=== PATIENT | female | born 1980 | race Caucasian/White ===

== ENCOUNTER → 2023-11-13 | Outpatient (CLI) | payer OTHER, SELFPAY ==
[2023-11-13 17:00] LABS: Absolute Lymphocyte Count 1.47 X10^3/uL (0.83-4.51); Absolute Neutrophil Count 2.8 X10^3/uL (2.0-7.7); Basophil# 0.02 X10^3/uL; Basophil% 0.4 % (0-1); Eosinophil# 0.04 X10^3/uL; Eosinophils% 0.8 % (0-5); Hematocrit 39.6 % (37-47); Hemoglobin 13.2 g/dL (12.0-15.0); Lymphocyte # 1.47 X10^3/ul (0.83-4.51); Lymphocyte % 30.7 % (19-41); Mean Corp Hgb Conc 33.3 g/dL (32-36); Mean Corpuscular Hgb 32.5 pg (27.0-32.0); Mean Corpuscular Volume 97.5 fL (81-99); Mean Platelet Vol. 8.9 fl (6.2-12.0); Monocyte# 0.42 X10^3/uL; Monocyte% 8.8 % (0-10); NRBC Flagged by Analyzer 0 % (0-5); Neutrophil # 2.83 X10^3/uL (2.7-7.7); Neutrophil % 59.1 % (47-70); Platelet Count 258 K/mm3 (150-450); RBC Distribution Width CV 12.8 % (11.6-14.6); RBC Distribution Width SD 45.8 fl (35.1-43.9); Red Blood Count 4.06 M/mm3 (4.2-5.4); White Blood Count 4.8 K/mm3 (4.4-11.0)
[2023-11-13 17:16] LABS: AST(SGOT) 25 U/L (15-37); Alanine Aminotransfer ALT/SGPT 40 U/L (13-56); Albumin, Serum 3.6 g/dL (3.2-5.0); Alkaline Phosphatase 59 U/L (45-117); Anion Gap 7 (5-15); BUN 14 mg/dL (7-18); BUN/Creat Ratio 18.3 RATIO (10-20); Calcium,Total 9.4 mg/dL (8.5-10.1); Chloride 105 mmol/L (98-107); Cholesterol 218 mg/dL (200); Creatinine, Serum 0.77 mg/dL (0.55-1.02); EST Glomerular Filtration Rate 87 mL/min (>60); Est Glom Filt Rate - Afr Amer 105 mL/min (>60); Globulin 3.6 g/dL (2.2-4.2); Glucose 100 mg/dL (74-106); High Density Lipoprotein 118 mg/dL; Protein, Total 7.2 g/dL (6.4-8.2); Sodium Level 137 mmol/L (136-145); Triglycerides 73 mg/dL; Very Low Density Lipoprotein 15 mg/dL (5-40)
== END | disposition home or self-care (01) ==
LOC: BIMLAB 15:34
PROVIDERS: PCP Internal Medicine; Referring Provider Internal Medicine; Visit Provider Internal Medicine
DX: Z00.00 Encounter for general adult medical examination without abnormal findings (principal); Z51.81 Encounter for therapeutic drug level monitoring
CPT/HCPCS: 36415; 80053; 80061; 80307; 85025

== ENCOUNTER → 2023-12-02 | Outpatient (CLI) | payer OTHER, SELFPAY ==
[2023-12-02 17:29] LABS: Amphetamine Urine VISTA POSITIVE (<1000 ng/mL); Barbiturate Urine VISTA NEGATIVE (< 200 ng/mL); Benzodiazepine Urine VISTA NEGATIVE (< 200 ng/mL); Cocaine Urine VISTA NEGATIVE (< 300 ng/mL); Ecstacy Urine VISTA NEGATIVE (< 500 ng/mL); Methadone Urine VISTA NEGATIVE (< 300 ng/mL); PCP Urine VISTA NEGATIVE (< 25 ng/mL); THC Urine VISTA POSITIVE (< 50 ng/mL); Vista UDS pH Range 5
== END | disposition home or self-care (01) ==
LOC: BIMLAB 12:16
PROVIDERS: PCP Internal Medicine; Referring Provider Internal Medicine; Visit Provider Internal Medicine
DX: Z51.81 Encounter for therapeutic drug level monitoring (principal)
CPT/HCPCS: 80307

== ENCOUNTER → 2024-03-09 | Outpatient (CLI) | payer OTHER, SELFPAY ==
--- NOTE | 2024-03-09 08:17 | BI_ITS ---
MAMMOGRAPHY - BILATERAL SCREENING REASON FOR EXAM: Female, 43 years old. Routine annual screening examination. PERTINENT HISTORY: Non-contributory. TECHNIQUE: Digital bilateral breast jair (3D mammographic acquisition) in the CC and MLO projections. 2-D mediolateral oblique (MLO) and craniocaudad (CC) views of both breasts were obtained. CAD: Full Field Digital Mammography with Computer Added Detection was performed. COMPARISON: Comparison is made with prior outside examination dated September 17, 2021. FINDINGS: Breast Composition: There are scattered areas of fibroglandular density. These 7.8 mm x 8.5 mm possible nodular density in the central aspect of the left breast as seen on the craniocaudad projection. The patient will be recalled for additional views including 90 degree lateral view as well as compression spot views of the left breast. No other significant abnormalities are identified. BI/SCRN MAMM (CAD)W/JAIR BILAT IMPRESSION: Possible 7.8 mm x 8.5 mm nodular density in the central aspect of the left breast as seen on the craniocaudad projection. The patient will be recalled for additional views. Recall Side: Left Breast ASSESSMENT CATEGORY: BIRADS Category 0: Incomplete. Need additional imaging evaluation. A letter regarding these results will be sent to the patient by the facility within 30 days. Approximately 10% of breast cancers are not detected by mammography. A normal mammogram should not delay biopsy of a clinically suspicious abnormality. [id number] Electronically Signed: Zachery Meek MD at 11:00 EST ,
== END | disposition home or self-care (01) ==
LOC: OPBI 08:14
PROVIDERS: PCP Internal Medicine; Referring Provider Internal Medicine; Visit Provider Internal Medicine
DX: Z12.31 Encounter for screening mammogram for malignant neoplasm of breast (principal)

== ENCOUNTER → 2024-03-30 | Outpatient (CLI) | payer OTHER, SELFPAY ==
--- NOTE | 2024-03-30 09:11 | BI_ITS ---
PROCEDURE: DIAG MAMM W/CAD, UNILAT compression spot views in the mediolateral oblique and craniocaudad projections were obtained of the left breast. REASON FOR EXAM: F, Age 43 y/o, abnormal screening mammogram. TECHNIQUE: Bilateral screening digital breast tomosynthesis with 2D and 3D images. Computer aided detection. COMPARISON: Prior exam(s) dating back to March 09, 2024.. FINDINGS: There are scattered areas of fibroglandular density. No suspicious masses, areas of developing architectural distortion, or suspicious calcifications.. Sonographic correlation recommended. BI/DIAG MAMM W/CAD, UNILAT IMPRESSION: BI-RADS 0: INCOMPLETE - NEED ADDITIONAL IMAGING EVALUATION. Follow-up code: Sonographic correlation. The patient will be notified of the results by letter. Reading Location: [place] [address]
--- NOTE | 2024-03-30 09:11 | US_ITS ---
EXAM: BREAST LIMITED UNILATERAL CLINICAL HISTORY: Abnormal screening mammogram. COMPARISON: Comparison is made with prior mammogram dated March 30, 2024 and March 09, 2024. TECHNIQUE: Using the Quick Key S8 ultrasound unit with a variable frequency 6-15 transducer radial and antiradial images of the left breast were performed. Color Doppler was used. FINDINGS: Breast Ultrasound Findings: Targeted ultrasound imaging to the upper outer quadrant as directed by the patient demonstrates no sonographic abnormality. No mass or cyst is seen. US/Breast Limited Unilateral IMPRESSION: Negative left breast ultrasound. In the presence of normal or benign imaging a clinically palpable breast mass should be managed using clinical parameters. A letter with findings and recommendations will be mailed to the patient. ASSESSMENT: BIRADS 1 NEGATIVE RECOMMENDATION: 1: ROUTINE ANNUAL FOLLOW-UP COMMENTS: Appropriate information was entered into a reminder system with a target due da te for the next mammogram. Reading Location: [place] [address]
== END | disposition home or self-care (01) ==
PROVIDERS: PCP Internal Medicine; Referring Provider Internal Medicine; Visit Provider Internal Medicine
DX: R92.8 Other abnormal and inconclusive findings on diagnostic imaging of breast (principal)
CPT/HCPCS: 76642; 77065

== ENCOUNTER 2024-04-06 09:03 | Day surgery (SDC) | payer OTHER, SELFPAY ==
[2024-04-06] VITALS (7 sets, daily range): BP systolic 91–123; BP diastolic 63–84; PULSE 62–72; RESP 16–18; TEMP 36.2–36.8; O2SAT 99–100; BMI 30.8
[2024-04-06 09:29] LABS: Internal QC Validated? YES +Cl - CLEAR BKGD; Pregnancy, Urine Negative Negative
--- NOTE | 2024-04-06 10:14 | PCM.PRE.AN2 ---
ASA Classification* ASA Classification ASA Classification: 2 Assessment & Plan Anesthesia* Anesthesia Assessment Anesthesia Assessment: Discussed sedation and/or anesthesia options, risks, benefits, and alternatives with patient/parents/legal guardian/POA. Questions invited. The patient/parents/legal guardian/POA seems to understand and agrees to proceed with anesthesia plan. Reviewed the physical assessment, medical history, allergy history and patient home medications list prior to surgery/procedure/anesthetic and documented any changes. Performed airway and anesthesia risk assessments. Anesthesia Type Anesthesia Type: MAC History Source History Obtained from:: Patient and Chart Anesthesia Focused Assessment* Temperature: 97.1 F Pulse Rate: 67 Blood Pressure: 123/84 Respiratory Rate: 18 Pulse Ox: 100 Oxygen Delivery Method: Room Air Airway Assessment Mouth opens: >3 cm Mallampati Score: II Teeth Condition: Caps/Crowns ([place] on #18. It is tight.) Neck Range of motion (ROM): Full ROM Focused Labs Anesthesia Preop lab: CBC WBC 4.8 K/mm3 (4.4-11.0) 11/13/23 15:35 11/13/23 RBC 4.06 M/mm3 (4.2-5.4) L 11/13/23 15:35 11/13/23 Hgb 13.2 g/dL (12.0-15.0) 11/13/23 15:35 11/13/23 Hct 39.6 % (37-47) 11/13/23 15:35 11/13/23 Plt Count 258 K/mm3 (150-450) 11/13/23 15:35 11/13/23 CHEMISTRY Potassium 4.0 mmol/L (3.5-5.1) 11/13/23 15:35 11/13/23 Sodium 137 mmol/L (136-145) 11/13/23 15:35 11/13/23 BUN 14 mg/dL (7-18) 11/13/23 15:35 11/13/23 Creatinine 0.77 mg/dL (0.55-1.02) 11/13/23 15:35 11/13/23 Glucose 100 mg/dL (74-106) 11/13/23 15:35 11/13/23 COAG Urine Test Negative Negative 04/06/24 09:17 04/06/24 Pre-Assessment Diagnosis/Proposed Procedure Planned Operative Procedure(s): CSCOPE OA Anesthesia History Anesthesia History - sheet turner: Anesthesia History - sheet turner Hx Hospitalization No 04/05/24 11:57 Any Problems With Anesthesia No 04/05/24 11:57 Cholinesterase deficiency No 04/05/24 11:57 You/Your Family Experience No 04/05/24 11:57 fever (hyperthermia) with Relationship Recent Exposure to Contagious No 04/06/24 09:29 Disease Does patient have nerve No 04/05/24 11:57 stimulator Patient instructed to have device shut off --Does patient have Pacemaker No 04/06/24 09:30 or ICD? When Was Last Pacemaker Check QUESTION #4 FULL TEXT: You/Your Family Experience fever (hyperthermia) with Anesthesia Last Oral Intake Last Oral intake: Last Oral Intake NPO since 08:20 04/06/24 09:30 Meds taken in AM with sips of No 04/06/24 09:30 water? Meds patient instructed to take am of surgery Any additional information?: Yes NPO since: 08:20 (Patient finished prep at 8:20 AM.) PONV PONV - sheet turner: PONV - sheet turner Female Yes 04/05/24 11:57 HX of Motion Sickness Yes 04/05/24 11:57 HX of N/V After Surgery No 04/05/24 11:57 Non-Smoker No 04/05/24 11:57 Duration of Surgery greater No 04/05/24 11:57 than 60 minutes Number of Risk Factors 2 04/05/24 11:57 PONV Score Moderate Risk 04/05/24 11:57 Height & Weight Height & Weight: Anesthesia: Height & Weight Height 5 ft 7 in 04/06/24 09:30 Weight: 89.358 kg 04/06/24 09:30 Body Mass Index (BMI) 30.8 04/06/24 09:30 Respiratory Assessment Respiratory Assessment - sheet turner: Respiratory Tract Infection Hx - sheet turner Hx Respiratory Tract Infection No: OCC COUGH/RESOLVED 04/05/24 11:57 STOP Sleep Apnea STOP Sleep Apnea - sheet turner: STOP Sleep Apnea - sheet turner Hx Hypertension No 04/05/24 11:57 Hx Sleep Apnea No 04/05/24 11:57 CPAP BIPAP Do you snore loudly (louder No 04/05/24 11:57 than talking or can be heard Do you often feel tired/ No 04/05/24 11:57 fatigued/ sleepy during daytime? Has anyone observed you stop No 04/05/24 11:57 breathing during sleep? STOP Results Negative 04/05/24 11:57 QUESTION #5 FULL TEXT : Do you snore loudly (louder than talking or can be heard through closed doors)? 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 Specify any problems Hx of Preganancy in last 3 No 04/05/24 11:57 Months Nurse Filling Out Transfusion DSCHRIBER 04/05/24 11:57 & Questions: Date: 04/05/24 04/05/24 11:57 Time: 11:59 04/05/24 11:57 Patient unable to answer at this time (ie. confused, unrespo /Reproduction History /Reproductive History - sheet turner: /Reproductive Hx- sheet turner Hx Now No 04/05/24 11:57 Gestational Age (in weeks): EDC: Hx Hx Para Hx Section SAB No 04/05/24 11:57 PFSH Medical History Marijuana use Alcohol use Syncope Smoker Insomnia Family hx of colon cancer Medication monitoring encounter Colon cancer screening Preventative health care Patellofemoral pain syndrome of both knees ADHD Home Medications ?Medication ?Instructions ?Recorded ?Last Taken ?Type dextroamphetamine-amphetamine 5 mg 1 tab PO QDAY PRN ADHD 11/13/23 Unknown History tablet multivitamin 1 tab PO QAM 03/09/24 03/30/24 History dextroamphetamine-amphetamine ER 1 cap PO QDAY 30 days #30 caps 03/11/24 04/05/24 Rx 30 mg 24hr capsule,extend release levonorgestrel (Mirena) 1 device intrauterine DAILY 04/05/24 04/06/24 History Allergy/AdvReac Type Severity Reaction Status Date / Time No Known Allergies Allergy Verified 04/06/24 09:27 Family History Aunt Diabetes Uncle Cancer Alzheimer dementia Grandfather Colon cancer Alzheimer dementia Sister Kidney disease Brother Colon polyps Mother Colon polyps Surgical History Hx of dilation and curettage S/P appendectomy Social History adopted: No household members: significant other number of children: 1 current occupational status: employed current occupation: [employer] pets and animals: Yes (1) pets and animals: dog(s) sexually active: Yes Smoking Status: Current some day smoker Tobacco: How many years used: 20 alcohol intake: current alcohol intake frequency: a few times a week substance use type: marijuana caffeine: No what type of physical activity do you participate in: none do you feel safe at home: Yes Review of Systems (Anesthesia) ROS Narrative System reviewed and no additional complaints, except as documented.
--- NOTE | 2024-04-06 10:15 | COLBX_PTH ---
PATIENT: KIRA CASILLAS LOC: EN U#:[id number] AGE/SX: 43/F ROOM: RE04/06/[address]: Dr. Cortez Alcantar MD : 1980 BED: DIS: 04/06/2024 SPEC #: [id number] RECD: 04/06/24 13:57 STATUS: JANI REMichelle #: [id number] TEQUILA: 04/06/24 10:[address]: Cortez Alcantar DEPT: SURGICAL PATHOLOGY RECD BY: Terrie Valero ENTERED: 04/06/24 14:05 SP TYPE: COLON BX OTHR DR: Dr. Rolo Feliciano MD Tissues: A - Rectum, NOS B - Sigmoid colon biopsy C - Rectum, NOS Procedures: Surgery Specimen Level IV HEADER OPERATION: Colonoscopy, polypectomy and biopsies PRE-OP DIAGNOSIS: Colon cancer screening TISSUE SUBMITTED: A- Rectal polyp biopsy, B- Sigmoid colon biopsy, C- Rectal polyp #2 MICROSCOPIC DIAGNOSIS A. Rectal polyp, biopsy: Fragments of hyperplastic polyp. B. Sigmoid colon, biopsy: Fragments of hyperplastic polyp. C. Rectal polyp #2, biopsy: Hyperplastic polyp. Fragments of inflammatory polyp. EVANGELINA. 04/07/2024 MICROSCOPIC DESCRIPTION Slides are reviewed. GROSS DESCRIPTION A. Received in fixative is one container labeled with the patient's name and designated Rectal polyp biopsy. The specimen consists of multiple irregular fragments of light perkins soft tissue that in aggregate measure 2.5 x 0.5 x 0.1 cm. The specimen is totally submitted in one cassette. B. Received in fixative is one container labeled with the patient's name and designated Sigmoid colon biopsy. The specimen consists of two irregular fragments of light perkins soft tissue that in aggregate measure 0.6 x 0.3 x 0.1 cm. The specimen is totally submitted in one cassette. C. Received in fixative is one container labeled with the patient's name and designated Rectal polyp#2. The specimen consists of three perkins-pink polyps measuring in aggregate 1 x 1 x 0.3cm. The entire specimen is submitted in one cassette. EVANGELINAWendy 04/06/2024 TC:1 CPT:60131y7
--- NOTE | 2024-04-06 11:09 | HP.PCM_ITS ---
[facility] - General General Date of Admission: 04/06/24 Date of Service: 04/06/24 Chief Complaint: Screening colonoscopy HPI Narrative KIRA CASILLAS, is a 43 F who presents for screening colonoscopy. This will be her first colonoscopy. She denies any GI symptoms or problems. She does have a family history of both colon polyps and colon cancers. It sounds as though her brother who is 2 years older than her recently was found to have multiple polyps. Her mother seems to have polyps every time she has a colonoscopy performed. And her grandfather had colon cancer. [facility] Medical History Marijuana use Alcohol use Syncope Smoker Insomnia Family hx of colon cancer Medication monitoring encounter Colon cancer screening Preventative health care Patellofemoral pain syndrome of both knees ADHD Home Medications ?Medication ?Instructions ?Recorded ?Last Taken ?Type dextroamphetamine-amphetamine 5 mg 1 tab PO QDAY PRN A DHD 11/13/23 Unknown History tablet multivitamin 1 tab PO QAM 03/09/24 History dextroamphetamine-amphetamine ER 1 cap PO QDAY 30 days #30 caps 03/11/24 04/05/24 Rx 30 mg 24hr capsule,extend release levonorgestrel (Mirena) 1 device intrauterine DAILY 04/05/24 04/06/24 History Allergy/AdvReac Type Severity Reaction Status Date / Time No Known Allergies Allergy Verified 04/06/24 09:27 Family History Aunt Diabetes Uncle Cancer Alzheimer dementia Grandfather Colon cancer Alzheimer dementia Sister Kidney disease Brother Colon polyps Mother Colon polyps Surgical History Hx of dilation and curettage S/P appendectomy Social History adopted: No household members: significant other number of children: 1 current occupational status: employed current occupation: [employer] pets and animals: Yes (1) pets and animals: dog(s) sexually active: Yes Smoking Status: Current every day smoker (Patient did not smoke today.) Tobacco: How many years used: 20 alcohol intake: current alcohol intake frequency: a few times a week substance use type: marijuana caffeine: No what type of physical activity do you participate in: none do you feel safe at home: Yes Vital Signs Vital Signs Vital Signs: 04/06/24 09:29 04/06/24 09:30 04/06/24 10:20 Temperature 97.1 F L 97.1 F L Temperature Source Temporal Pulse Rate 67 67 Respiratory Rate 18 18 Respiratory Pattern Normal Blood Pressure 123/84 H 123/84 H Blood Pressure Mean 97 Blood Pressure Source Monitor Blood Pressure Position Semi-Fowlers Blood Pressure Location Right Arm Pulse Ox 100 100 Oxygen Delivery Method Room Air Room Air Weight Weight: 197 lb Body Mass Index (BMI) 30.8 Physical Exam Const alert, oriented x3 and no apparent distress Results Lab / Micro Data Labs: Laboratory Results - last 24 hr 04/06/24 09:17: Urine Test Negative Assessment & Plan Assessment/Plan (1) Colon cancer screening: PLAN: Plan The patient is a 43-year-old female in need of a screening colonoscopy. She does have a family history of colon polyps and colon cancers. No recent GI sy mptoms or problems. We discussed the details of the planned procedure and she wishes to proceed. This will begin momentarily Charges/Coding Visit Charges Inpatient E&M: 36442 Init Hosp L1
--- NOTE | 2024-04-06 12:04 | OP.CCLET_ITS ---
04/06/2024 Rolo Feliciano MD [address] [place] [address] [place] [address] Re : Colonoscopy procedure for Divine Hoyt Dear Dr. Feliciano This procedure was performed on Saturday, April 06, 2024. My impressions and recommendations are as follows: Impressions : - One 3 mm polyp in the sigmoid colon, removed with a cold biopsy forceps. Resected and retrieved. - Seven 2 to 3 mm polyps in the proximal rectum, removed with a cold biopsy forceps. Resected and retrieved. - Two 5 to 8 mm polyps in the rectum, removed with a hot snare. Resected and retrieved. - The examination was otherwise normal on direct and retroflexion views. Recommendations : - Discharge patient to home (ambulatory). - High fiber diet indefinitely. - Await pathology results. - Repeat colonoscopy in 3 years for surveillance. - Return to my office PRN. - Continue present medications. My findings are described in the full procedure note, which is enclosed. If I can be of further assistance, please feel free to contact me at . Sincerely, Cortez Alcantar MD 04/06/2024 12:04:16 PM This report has been signed electronically.
--- NOTE | 2024-04-06 12:04 | OP.COLON_ITS ---
Patient Name: Divine Hoyt Procedure Date: 04/06/2024 11:02 AM Date of : 1980 Age: 43 Procedure: Colonoscopy Indications: Screening for colon cancer: Family history of colorectal cancer in distant relative(s) 60 or older Providers: Cortez Alcantar MD Referring MD: Cortez Alcantar MD Medicines: Monitored Anesthesia Care Patient Profile: Refer to note in patient chart for documentation of history and physical. Last Colonoscopy: none. The patient's first colonoscopy is today. Complications: No immediate complications. Estimated blood loss: Minimal. Procedure: Pre-Anesthesia Assessment: - Prior to the procedure, a History and Physical was performed, and patient medications and allergies were reviewed. The patient's tolerance of previous anesthesia was also reviewed. The risks and benefits of the procedure and the sedation options and risks were discussed with the patient. All questions were answered, and informed consent was obtained. Prior Anticoagulants: The patient has taken no anticoagulant or antiplatelet agents. ASA Grade Assessment: II - A patient with mild systemic disease. After reviewing the risks and benefits, the patient was deemed in satisfactory condition to undergo the procedure. After I obtained informed consent, the scope was passed under direct vision. Throughout the procedure, the patient's blood pressure, pulse, and oxygen saturations were monitored continuously. The adult colonoscope was introduced through the anus and advanced to the cecum, identified by appendiceal orifice and ileocecal valve. The ileocecal valve, appendiceal orifice, and rectum were photographed. The entire colon was well visualized. The colonoscopy was performed without difficulty. The patient tolerated the procedure well. The quality of the bowel preparation was adequate. Moderate Sedation: See the other procedure note for documentation of moderate sedation with intraservice time. See the other procedure note for documentation of moderate sedation with intraservice time. Scope In: 11:21:46 AM Scope Withdrawal Time 0 hours 25 minutes 40 seconds Scope Out: 11:56:54 AM Total Procedure Duration Time 0 hours 35 minutes 8 seconds Findings: The perianal and digital rectal examinations were normal. A 3 mm polyp was found in the sigmoid colon. The polyp was sessile. The polyp was removed with a cold biopsy forceps. Resection and retrieval were complete. Verification of patient identification for the specimen was done by the nurse using the patient's name, date and medical record number. Estimated blood loss was minimal. Seven sessile polyps were found in the proximal rectum. The polyps were 2 to 3 mm in size. These polyps were removed with a cold biopsy forceps. Resection and retrieval were complete. Verification of patient identification for the specimen was done by the nurse using the patient's name, date and medical record number. Estimated blood loss was minimal. Two semi-pedunculated polyps were found in the rectum. The polyps were 5 to 8 mm in size. These polyps were removed with a hot snare. Resection and retrieval were complete. Verification of patient identification for the specimen was done by the nurse using the patient's name, date and medical record number. Estimated blood loss was minimal. The exam was otherwise without abnormality on direct and retroflexion views. Impression: - One 3 mm polyp in the sigmoid colon, removed with a cold biopsy forceps. Resected and retrieved. - Seven 2 to 3 mm polyps in the proximal rectum, removed with a cold biopsy forceps. Resected and retrieved. - Two 5 to 8 mm polyps in the rectum, removed with a hot snare. Resected and retrieved. - The examination was otherwise normal on direct and retroflexion views. Recommendation: - Discharge patient to home (ambulatory). - High fiber diet indefinitely. - Await pathology results. - Repeat colonoscopy in 3 years for surveillance. - Return to my office PRN. - Continue present medications. Procedure Code(s): --- Professional --- 11723, Colonoscopy, flexible; with removal of tumor(s), polyp(s), or other lesion(s) by snare technique 02744, 59, Colonoscopy, flexible; with biopsy, single or multiple Diagnosis Code(s): --- Professional --- Z12.11, Encounter for screening for malignant neoplasm of colon Z80.0, Family history of malignant neoplasm of digestive organs D12.8, Benign neoplasm of rectum D12.5, Benign neoplasm of sigmoid colon CPT copyright 2021 [employer]. All rights reserved. The codes documented in this report are preliminary and upon towel inspector review may be revised to meet current compliance requirements. Cortez Alcantar MD 04/06/2024 12:04:16 PM This report has been signed electronically. Number of Addenda: 0 Note Initiated On: 04/06/2024 11:02 AM
--- NOTE | 2024-04-06 12:11 | PCM.POST.ANE ---
Anesthesia: Postop Eval I Current Vital Signs Temperature: 97.3 F Pulse Rate: 72 Blood Pressure: 91/66 Respiratory Rate: 16 Pulse Ox: 99 Oxygen Delivery Method: Room Air Assessment Airway patent: Yes Spontaneous unlabored respirations: Yes Mental status: Awake and Calm nausea: No Vomiting: No Anesthesia Complication: No Fluid Hydration Crystalloid volume administer (ml): 75 Total IV fluid infused: 75 Progress Note Anesthesia document: Postop Eval 1 completed: Yes
--- NOTE | 2024-04-06 13:18 | PCM.POSTANE2 ---
Anesthesia Postop Eval I Sum Postop Eval Completion status Anesthesia document: Postop Eval 1 completed: Yes Anesthesia Postop Eval I Summary Anesthesia Postop Eval I Summary: Anesthesia Postop Eval I: Assessment Summary Airway patent Yes 04/06/24 12:13 [email or web address] Spontaneous unlabored Yes 04/06/24 12:13 [email or web address] respirations Mental status Awake,Calm 04/06/24 12:13 [email or web address] nausea No 04/06/24 12:13 [email or web address] Vomiting No 04/06/24 12:13 [email or web address] Anesthesia Postop Eval I: Fluid Summary Crystalloid volume administer 75 04/06/24 12:13 [email or web address] (ml) Colloids volume administered ( ml) Blood Product volume administered (ml) Total IV fluid infused 75 04/06/24 12:13 [email or web address] Anesthesia Postop Eval I: Summary Notes Anesthesia Complication No 04/06/24 12:13 [email or web address] Anesthesia Complication Comment: Post-operative progress note Anesthesia: Postop Eval II Evaluation Mental status: Awake and Calm Pain Level: 0 nausea: No Vomiting: No Complications Anesthesia Complication: No
== END 2024-04-06 12:41 | disposition home or self-care (01) ==
LOC: EN 09:03 → AC 09:04
PROVIDERS: Anesthesiology; PCP Internal Medicine; Referring Provider Surgery; Visit Provider Surgery
PROC: 0DJD8ZZ Inspection of Lower Intestinal Tract, Via Natural or Artificial Opening Endoscopic (ICD-10-PCS; CPT 45378; principal; 2024-04-06 10:10)
DX: Z12.11 Encounter for screening for malignant neoplasm of colon (principal); D12.5 Benign neoplasm of sigmoid colon; F17.200 Nicotine dependence, unspecified, uncomplicated; D12.8 Benign neoplasm of rectum; Z80.0 Family history of malignant neoplasm of digestive organs; F90.9 Attention-deficit hyperactivity disorder, unspecified type
CPT/HCPCS: 45380; 45385; 81025; 88305; A4216; J2405

== ENCOUNTER → 2024-06-02 | Outpatient (CLI) | payer OTHER, SELFPAY | END | disposition home or self-care (01) | LOC: LABSPEC 16:05 | PROVIDERS: PCP Internal Medicine; Referring Provider Advanced Practice Midwife; Visit Provider Advanced Practice Midwife | DX: Z12.4 Encounter for screening for malignant neoplasm of cervix (principal) | CPT/HCPCS: 87624; 88175; G0145 ==

== ENCOUNTER → 2024-09-21 | Outpatient (CLI) | payer OTHER, SELFPAY ==
--- NOTE | 2024-09-21 12:03 | US_ITS ---
PROCEDURE: THYROID 09/21/2024 REASON FOR EXAM: ENLARGED THYROID TECHNIQUE: THYROID COMPARISON: None FINDINGS: Right lobe measures 4.8 x 1.7 x 1.6 cm. It is heterogeneous. There is a well- defined isoechoic to thyroid 0.9 x 0.9 x 0.7 cm nodule which scores a TR 3. Given its size, it can be followed sonographically at 1 3 and 5 years. The left lobe measures 5.0 x 1.4 x 1.5 cm, it is homogeneous and contains 2 separate complex solid and cystic nodules, larger measures 1.0 x 1.0 x 0.7 cm, smaller measures 0.7 x 0.5 x 0.6 cm. Both measure TR 3 as well and can be followed sonographically. The isthmus measures 0.2 cm and contains a hypoechoic well-defined 0.4 x 0.4 x 0.3 cm lesion which scores TR 4 and can also be followed sonographically. No hyperemia or suspicious adenopathy noted. US/Thyroid IMPRESSION: Borderline enlarged thyroid gland with bilateral nodules as discussed above. T he nodules can be followed sonographically at 1, 3, and 5 year intervals. Reading Location: [id number]
== END | disposition home or self-care (01) ==
PROVIDERS: PCP Internal Medicine; Referring Provider Internal Medicine; Visit Provider Internal Medicine
DX: E04.9 Nontoxic goiter, unspecified (principal)
CPT/HCPCS: 76536

== ENCOUNTER → 2025-01-29 | Outpatient (CLI) | payer OTHER, SELFPAY ==
--- OUTSIDE RECORDS SUMMARY | 2025-01-29 11:13 | XMS RPT_ITS | CCD ---
Author Organization [facility] Care Team Providers Care Insights Strategist Name Role Phone Godfrey Walsh MD Primary Care Provider Morena Luna MD Primary Care Provider Niranjan Walter Primary Care Provider Pcp BARN WORKER, No Primary Care Provider Unavailelaine e Niranjan Wlater Primary Care Provider Godfrey Walsh MD Primary Care Provider AL SAIF, ALAA Attending Unavailable AL SAIF, ALAA MAHDI Primary Care Unavailable AL SAIF, MORENA BLANCO Attending Unavailable AL SAIF, ALAA Primary Care Unavailable AL SAIF, MORENA BLANCO Attending Unavailable AL SAIF, ALAA Primary Care Unavailable AL SAIF, MORENA BLANCO Attending Unavailable AL SAIF, ALAA MAHDI Primary Care Unavailable AL SAIF, ALAA MAHDI Referring Unavailable AL SAIF, ALAA Primary Care Unavailable Godfrey Walsh MD Primary Care Provider Godfrey Walsh MD Primary Care Provider Haagen BARN WORKER.QUANTITATIVE ANALYST MARKETINGGalina Unavailable Suppan BARN WORKER.QUANTITATIVE ANALYST MARKETING, Pretty A Unavailable [phone] GODFREY WALSH Attending Unavailable GODFREY WALSH Primary Care Unavailable GODFREY WALSH Attending Unavailable GODFREY WALSH Primary Care Unavailable GODFREY WALSH Attending Unavailable SELF Referring Unavailable GODFREY WALSH Primary Care Unavailable Jodie TINEO, Dr. Seth Primary Care Provider Jodie TINEO, Dr. Seth Attending Provider [phone] Jodie TINEO, Dr. Seth Referring Provider [phone]) Marlene Saavedra Attending Provider Unavailable Ortiz TINEO, Dr. Cortez Yanez Attending Provider Ortiz TINEO, Dr. Cortez Yanez Referring Provider Ortiz TINEO, Dr. Cortez Yanez Other Provider Omero Ceja Attending Provider Eliu RAY, Kathy Attending Provider [phone] Kathy Nowak CNM Referring Provider [phone] Jodie TINEO, Dr. Seth Primary Care Provider Jodie TINEO, Dr. Seth Referring Provider [phone]) Afshin TINEO, Dr. Harvey Attending Provider Jodie TINEO, Dr. Seth Primary Care Provider Jodie TINEO, Dr. Seth Referring Provider [phone]) Afshin TINEO, Dr. Harvey Primary Care Provider [phone] Afshin TINEO, Dr. Harvey Referring Provider Oleghe, Efewongbe Primary Care Unavailable Marlene Saavedra Attending Unavailable Oleghe, Efewongbe Primary Care Unavailable [place]aria Attending Unavailable Oleghe, Efewongbe Referring Unavailable Afshin, Candice Primary Care Unavailable [place]cle[place]BrodyCandice Attending Unavailable Oleghe, Efewongbe Referring Unavailable Oleghe, Efewongbe Primary Care Unavailable Cortez Alcantar Attending Unavailable Cortez Alcantar Referring Unavailable Afshin, Candice Primary Care Unavailable [place], Candice Attending Unavailable [place], Candice Referring Unavailable Oleghe, Efewongbe Attending Unavailable Oleghe, Efewongbe Referring Unavailable Oleghe, Efewongbe Primary Care Unavailable Oleghe, Efewongbe Referring Unavailable Oleghe, Efewongbe Primary Care Unavailable Oleghe, Efewongbe Attending Unavailable Kathy Nowak Attending Unavailable Kathy Nowak Referring Unavailable Oleghe, Efewongbe Primary Care Unavailable Oleghe, Efewongbe Referring Unavailable Oleghe, Efewongbe Primary Care Unavailable Oleghe, Efewongbe Attending Unavailable Oleghe, Efewongbe Referring Unavailable Omero Ceja Attending Unavailable Oleghe, Efewongbe Primary Care Unavailable Kathy Nowak Attending Unavailable Oleghe, Efewongbe Primary Care Unavailable Oleghe, Efewongbe Referring Unavailable Oleghe, Efewongbe Primary Care Unavailable Cortez Alcantar Consulting Unavailable Cortez Alcantar Attending Unavailable Cortez Alcantar Referring Unavailable Jodie TINEO, Dr. Seth Primary Care Physician Jodie TINEO, Dr. Seth Referring Provider [phone] Afshin TINEO, Dr. Harvey Attending Physician [phone] Afshin TINEO, Dr. Harvey Primary Care Physician [phone] Allergies Allergy Classification Reported Allergen(s) Allergy Type Date of Onset Reaction(s) Facility Dust (1 source) Dust Substance Allergy 12-04-2004 [facility] Mold Extract (1 source) Mold Extract Drug Allergy 12-04-2004 [facility] (20 sources) Dust; Translations: [DUST] Propensity to adverse reactions 12-04-2004 [facility] Work Phone: (20 sources) Mold Extract; Translations: [MOLD] Drug Allergy 12-04-2004 [facility] Work Phone: (20 sources) Cat Hair Extract; Translations: [CAT HAIR EXTRACT] Propensity to adverse reactions 12-04-2004 [facility] Work Phone: (20 sources) Cotton; Translations: [COTTON] Propensity to adverse reactions 12-04-2004 [facility] Work Phone: Medications Current Medications Medication Drug Class(es) Dates Sig (Normalized) Sig (Original) amoxicillin 500 mg oral tablet (1 source) Penicillin-class Antibacterial Start: 06-13-2022 End: 06-20-2022 take 1 tablet by mouth three times daily Amoxicillin 500 mg tablet Indications: Laryngitis Take 1 tablet by mouth three times daily for 7 days. 21 tablet 0 06/13/2022 06/20/2022 Active Comment on above: Take 1 tablet by ginger three times daily for 7 days. 24 hr amphetamine aspartate 7.5 mg / amphetamine sulfate 7.5 mg / dextroamphetamine saccharate 7.5 mg / dextroamphetamine sulfate 7.5 mg extended release oral capsule (20 sources) Central Nervous System Stimulant Start: 12-16-2024 Dextroamphetamine- Amphetamine 5 mg tablet Active 1 {tbl} PO daily as needed for ADHD 30 30 0 December 16, 2024 January 05, 2025 1:00am Attention deficit hyperactivity disorder (ADHD) Attention-deficit hyperactivity disorder, unspecified type Complies with drug therapy Start: 12-16-2024 Dextroamphetam ine-Amphetamine 30 mg capsule,extended release 24hr Active 1 NMA PO daily 30 30 0 December 16, 2024 January 05, 2025 1:00am Attention deficit hyperactivity disorder (ADHD) Attention-deficit hyperactivity disorder, unspecified type Complies with drug therapy Start: 11-16-2024 End: 12-07-2024 Dextroamphetamine-Amphetamin e 5 mg tablet Discontinued 1 {tbl} PO daily as needed for ADHD 30 30 0 November 16, 2024 December 15, 2024 12:00am December 07, 2024 12:47pm Attention deficit hyperactivity disorder (ADHD) Attention-deficit hyperactivity disorder, unspecified type Start: 11-16-2024 End: 12-07-2024 Dextroamphetamine-Amphetamin e 30 mg capsule,extended release 24hr Discontinued 1 NMA PO daily 30 30 0 November 16, 2024 December 15, 2024 12:00am December 07, 2024 12:47pm Attention deficit hyperactivity disorder (ADHD) Attention-deficit hyperactivity disorder, unspecified type Start: 10-10-2024 End: 2024 Dextroamphetamine-Amphetamin e 5 mg tablet Discontinued 1 {tbl} PO daily as needed for ADHD 30 30 0 October 10, 2024 November 08, 2024 12:00am 2024 12:06am Attention deficit hyperactivity disorder (ADHD) Attention-deficit hyperactivity disorder, unspecified type Start: 10-10-2024 End: 2024 Dextroamphetamine-Amphetamin e 30 mg capsule,extended release 24hr Discontinued 1 NMA PO daily 30 30 0 October 10, 2024 November 08, 2024 12:00am 2024 12:06am Attention deficit hyperactivity disorder (ADHD) Attention-deficit hyperactivity disorder, unspecified type Start: 08-02-2024 End: 09-30-2024 Dextroamphetamine-Amphetamin e 5 mg tablet Discontinued 1 {tbl} PO daily as needed for ADHD 30 30 0 August 31, 2024 September 29, 2024 12:00am September 30, 2024 12:08am Attention deficit hyperactivity disorder (ADHD) Attention-deficit hyperactivity disorder, unspecified type Start: 08-02-2024 End: 09-30-2024 Dextroamphetamine-Amphetamin e 30 mg capsule,extended release 24hr Discontinued 1 NMA PO daily 30 30 0 August 31, 2024 September 29, 2024 12:00am September 30, 2024 12:08am Attention deficit hyperactivity disorder (ADHD) Attention-deficit hyperactivity disorder, unspecified type Start: 06-30-2024 End: 07-30-2024 Dextroamphetamine-Amphetamin e 5 mg tablet Discontinued 1 {tbl} PO daily as needed for ADHD 10 30 0 June 30, 2024 July 29, 2024 12:00am July 30, 2024 12:10am Attention deficit hyperactivity disorder (ADHD) Attention-deficit hyperactivity disorder, unspecified type Start: 06-30-2024 End: 07-30-2024 Dextroamphetamine-Amphetamin e 30 mg capsule,extended release 24hr Discontinued 1 NMA PO daily 30 30 0 June 30, 2024 July 29, 2024 12:00am July 30, 2024 12:10am Attention deficit hyperactivity disorder (ADHD) Attention-deficit hyperactivity disorder, unspecified type Start: 05-25-2024 End: 06-24-2024 Dextroamphetamine-Amphetamin e 5 mg tablet Discontinued 1 {tbl} PO daily as needed for ADHD 10 30 0 May 25, 2024 June 23, 2024 12:00am June 24, 2024 12:09am Attention deficit hyperactivity disorder (ADHD) Attention-deficit hyperactivity disorder, unspecified type Start: 05-19-2024 End: 06-18-2024 Dextroamphetamine-Amphetamin e 30 mg capsule,extended release 24hr Discontinued 1 NMA PO daily 30 30 0 May 19, 2024 June 17, 2024 12:00am June 18, 2024 12:10am Attention deficit hyperactivity disorder (ADHD) Attention-deficit hyperactivity disorder, unspecified type Start: 03-11-2024 End: 04-10-2024 Dextroamphetamine-Amphetamin e 30 mg capsule,extended release 24hr Discontinued 1 NMA PO daily 30 30 0 March 11, 2024 April 09, 2024 1:00am April 10, 2024 1:18am Attention deficit hyperactivity disorder (ADHD) Attention-deficit hyperactivity disorder, unspecified type Start: 02-05-2024 End: 03-06-2024 Dextroamphetamine-Amphetamin e 30 mg capsule,extended release 24hr Discontinued 1 NMA PO daily 30 30 0 February 05, 2024 March 05, 2024 1:00am March 06, 2024 1:20am Attention deficit hyperactivity disorder (ADHD) Attention-deficit hyperactivity disorder, unspecified type Start: 11-13-2023 End: 05-25-2024 Dextroamphetamine-Amphetamin e 5 mg tablet Discontinued 1 {tbl} PO daily as needed for ADHD 0 November 13, 2023 12:00am May 25, 2024 2:50pm Start: 11-13-2023 End: 02-05-2024 Dextroamphetamine-Amphetamin e 30 mg capsule,extended release 24hr Discontinued 1 NMA PO daily 0 November 13, 2023 12:00am February 05, 2024 6:54pm Start: 05-27-2023 End: 05-01-2023 Amphetamine-Dextroamphetamin e (ADDERALL) 30 mg tablet Indications: Attention deficit disorder, unspecified hyperactivity presence Take 1 tablet by mouth once daily for 30 days. Do not start before May 27, 2023. 30 tablet 0 05/27/2023 05/01/2023 Discontinued Start: 05-01-2023 End: 12-15-2023 take 1 capsule by mouth once daily amphetamine-dextroamphetamine XR (ADDERA LL XR) 30 mg capsule Indications: Attention deficit disorder, unspecified hyperactivity presence Take 1 capsule by mouth once daily for 30 days. Do not start before August 08, 2023. 30 capsule 0 08/08/2023 09/16/2023 Discontinued Start: 03-28-2023 End: 06-26-2023 Amphetamine-Dextroamphetamin e (ADDERALL) 30 mg tablet Indications: Attention deficit disorder, unspecified hyperactivity presence Take 1 tablet by mouth once daily for 30 days. Do not start before April 27, 2023. 30 tablet 0 04/27/2023 06/18/2023 Discontinued Start: 07-13-2022 End: 03-28-2023 take 1 tablet by mouth every twelve hours dextroamphetamine-amphetamine (ADDERALL) 5 mg tablet Indications: Attention deficit disorder, unspecified hyperactivity presence Take 1 tablet by mouth every 12 hours for 30 days. Do not start before July 13, 2022. 60 tablet 0 07/13/2022 03/28/2023 Discontinued (Duplicate Entry) Start: 11-19-2021 End: 12-15-2023 take 1 tablet by mouth once daily dextroamphetamine-amphetamine (ADDERALL) 5 mg tablet Indications: Attention deficit disorder, unspecified hyperactivity presence Take 1 tablet by mouth once daily for 30 days. Do not start before September 06, 2023. 30 tablet 0 09/06/2023 09/16/2023 Discontinued Start: 02-19-2021 End: 04-03-2023 take 1 capsule by mouth once daily amphetamine-dextroamphetamine XR (ADDERA LL XR) 30 mg capsule Indications: Attention deficit disorder, unspecified hyperactivity presence Take 1 capsule by mouth once daily for 30 days. Do not start before February 02, 2023. 30 capsule 0 02/02/2023 03/28/2023 Discontinued (Duplicate Entry) Start: 02-02-2021 End: 06-18-2023 amphetamine-dextroamphetamin e XR (ADDERALL XR) 5 mg capsule Indications: Attention deficit disorder, unspecified hyperactivity presence Take 1 capsule by mouth once daily for 30 days. Do not start before March 04, 2023. 30 capsule 0 03/04/2023 06/18/2023 Discontinued Comment on above: Take 1 capsule by mo ut once daily for 30 days. Do not start before August 22, 2021. Take 1 capsule by mo uth once daily for 30 days. Do not start before September 21, 2021. Take 1 capsule by mo ut once daily for 30 days. Do not start before October 22, 2021. Take 1 capsule by mo uth once daily for 30 days. Do not start before June 30, 2021. Take 1 capsule by mo uth once daily for 30 days. In addition to 30 mg Do not start before June 30, 2021. Take 1 capsule by mo uth once daily for 30 days. May fill on 12/12/20 Do not start before April 05, 2021. Take 1 capsule by mo uth once daily for 30 days. In addition to 30 mg a day Do not start before February 02, 2021. Take 1 capsule by mo uth once daily for 30 days. Take 1 capsule by mo uth once daily for 30 days. Do not start before May 31, 2021. Take 1 capsule by mo uth once daily for 30 days. In addition to 30 mg Take 1 capsule by mo uth once daily for 30 days. In addition to 30 mg Do not start before May 31, 2021. Take 1 capsule by mo uth once daily for 30 days. Do not start before December 19, 2021. Take 1 capsule by mo uth once daily for 30 days. Do not start before January 18, 2022. Take 1 tablet by ginger th once daily for 30 days. Take 1 tablet by ginger th once daily for 30 days. Do not start before December 19, 2021. Take 1 tablet by ginger th once daily for 30 days. Do not start before January 18, 2022. Take 1 tablet by ginger th once daily. Take 30 mg by mouth once daily. Take 1 capsule by mo uth once daily for 30 days. Do not start before July 13, 2022. Take 1 capsule by mo uth once daily for 30 days. Do not start before August 12, 2022. Take 1 tablet by ginger th every 12 hours for 30 days. Do not start before July 13, 2022. Take 1 tablet by ginger th once daily for 30 days. Do not start before August 13, 2022. Take 1 capsule by mo uth once daily for 30 days. Do not start before February 02, 2023. Take 1 capsule by mo uth once daily for 30 days. Do not start before March 04, 2023. Take 1 tablet by ginger th once daily for 30 days. Do not start before April 27, 2023. Take 1 tablet by ginger th once daily for 30 days. Do not start before May 27, 2023. Take 1 capsule by mo uth once daily for 30 days. Do not start before May 31, 2023. cyclobenzaprine hydrochloride 5 mg oral tablet (1 source) Muscle Relaxant Start: 10-14-2 025 take 1 tablet by mouth twice daily as needed for pain Cyclobenzaprine 5 mg tablet Active 5 mg PO TWICE A DAY as needed for pain 10 0 December 07, 2024 12:00am Complies with drug therapy levonorgestrel 0.365786 mg/hr intrauterine system (20 sources) Progestin, Progestin-containing Intrauterine Device Start: Levonorgestrel (Mirena) 21 mcg/24hr (up to 8 yrs) 52 mg intrauterine device Active 1 NMA INTRA-UTER DAILY April 05, 2024 1:00am Complies with drug therapy Start: 10-28-2019 levonorgestrel (MIRENA) 20 mcg/24 hours (5 yrs) 52 mg IUD Indications: Encounter for IUD insertion 1 Each by INTRAUTERINE route as directed. 1 Each 10/28/2019 Active Comment on above: 1 Each by INTRAUTERI NE route as directed. medical marajuana (3 sources) Start: 08-31-2024 medical marajuana Active INHALATION as needed August 31, 2024 12:00am Complies with drug therapy Start: 08-31-2024 medical maraju tab Active INHALATION as needed August 31, 2024 12:00am Multivitamin tablet (8 sources) Start: 03-09-2024 Multivitamin t ablet Active 1 {tbl} PO EVERY MORNING March 09, 2024 3:12pm WITH TURMERIC Complies with drug therapy Start: 03-09-2024 Multivitamin t ablet Active 1 {tbl} PO EVERY MORNING March 09, 2024 3:12pm WITH TURMERIC Start: 03-09-2024 End: 03-09-2024 Multivitamin tablet Disconti nued 1 {tbl} PO EVERY MORNING March 09, 2024 1:00am March 09, 2024 3:12pm predniSONE 20 mg oral tablet (1 source) Start: 06-13-2022 End: 06-18-2022 take 1 tablet by mouth once daily predniSONE (DELTASONE) 20 mg tablet Indications: Laryngitis Take 1 tablet by mouth once daily for 5 days. 5 tablet 0 06/13/2022 06/18/2022 Active Comment on above: Take 1 tablet by ginger once daily for 5 days. Completed/Discontinued Medications Medication Drug Class(es) Dates Sig (Normalized) Sig (Original) Dextroamphetamine-A mphetamine 30 mg capsule,extended release 24hr (3 sources) Start: 11-13-2023 End: 02-05-2024 Dextroamphetamine-Am phetamine 30 mg capsule,extended release 24hr Discontinued 1 NMA PO daily 0 November 13, 2023 12:00am February 05, 2024 6:54pm Start: 11-13-2023 End: 02-05-2024 Dextroamphetamine-Amphetamin e 30 mg capsule,extended release 24hr Discontinued 1 NMA PO daily November 13, 2023 12:00am February 05, 2024 6:54pm valACYclovir 1000 mg oral tablet (1 source) Herpesvirus Nucleoside Analog DNA Polymerase Inhibitor, Herpes Simplex Virus Nucleoside Analog DNA Polymerase Inhibitor, Herpes Zoster Virus Nucleoside Analog DNA Polymerase Inhibitor Start: 07-30-2022 End: 09-24-2022 take 2 tablets by mouth once valACYclovir (VALTREX) 1 gram TAKE TWO TABLETS BY MOUTH EVERY TWELVE HOURS 0 07/30/2022 09/24/2022 Discontinued (Changing Therapy/Dosage Form) Comment on above: TAKE TWO TABLETS BY MOUTH EVERY TWELVE HOURS Problems Active Problems Problem Classification Problem Date Documented Date Episodic/Chronic Administrative/social admission (2 sources) First encounter by subject; Translations: [Persons encountering health services in other specified circumstances] 08-31-2024 Episodic Attention-deficit, conduct, and disruptive behavior disorders (14 sources) Attention deficit hyperactivity disorder; Translations: [Attention-deficit hyperactivity disorder, unspecified type] 05-25-2024 Chronic Comment on above: ON MED Attention-deficit, conduct, and disruptive behavior disorders (1 source) Attention-deficit hyperactivity disorder, unspecified type; Translations: [Attention-deficit hyperactivity disorder, unspecified type] Onset: 12-07-2024 Chronic Contraceptive and procreative management (4 sources) Intrauterine contraceptive device in situ; Translations: [Presence of (intrauterine) contraceptive device] 08-31-2024 Episodic Disorders of lipid metabolism (2 sources) Mixed hyperlipidemia; Translations: [Mixed hyperlipidemia] Onset: 12-07-2024 12-07-2024 Chronic Disorders usually diagnosed in infancy, childhood, or adolescence (20 sources) Attention deficit hyperactivity disorder, predominantly inattentive type; Translations: [Other specified behavioral and emotional disorders with onset usually occurring in childhood and adolescence] Onset: 10-10-2016 Chronic Immunizations and screening for infectious disease (2 sources) Immunization due; Translations: [Encounter for immunization] 08-31-2024 Episodic Malaise and fatigue (1 source) Other fatigue; Translations: [Other fatigue] Onset: 12-07-2024 Episodic Menopausal disorders (1 source) Menopause finding; Translations: [Menopausal and female climacteric states] 12-07-2024 Chronic Other aftercare (20 sources) Patient encounter status; Translations: [Encounter for therapeutic drug level monitoring] Episodic Other eye disorders (20 sources) Bilateral vitreous floaters; Translations: [Other vitreous opacities, bilateral] Onset: 03-06-2015 03-06-2015 Chronic Other liver diseases (1 source) Elevated liver enzymes level; Translations: [Abnormal levels of other serum enzymes] Episodic Other nutritional; endocrine; and metabolic disorders (17 sources) Obese class I; Translations: [Obesity, unspecified] Onset: 03-12-2022 Chronic Other nutritional; endocrine; and metabolic disorders (1 source) Obesity, unspecified; Translations: [Obesity, Class I, BMI 30-34.9] Onset: 03-12-2022 Chronic Residual codes; unclassified (5 sources) Insomnia; Translations: [Insomnia, unspecified] 03-11-2024 Episodic Residual codes; unclassified (1 source) Influenza vaccination declined; Translations: [Immunization not carried out because of patient refusal] 12-07-2024 Episodic Spondylosis; intervertebral disc disorders; other back problems (1 source) Neck pain; Translations: [Cervicalgia] 12-07-2024 Episodic Syncope (2 sources) Syncope; Translations: [Syncope and collapse] 08-31-2024 Episodic Thyroid disorders (5 sources) Goiter; Translations: [Nontoxic goiter, unspecified] Onset: 12-07-2024 08-31-2024 Chronic Unclassified (5 sources) F90.9 - Attention-deficit hyperactivity disorder, unspecified type Past or Other Problems Problem Classification Problem Date Documented Da te Episodic/Chronic Mycoses (2 sources) Onychomycosis; Translations: [Tinea unguium] Onset: 03-28-2023 03-28-2023 Episodic Other eye disorders (8 sources) Cyst of right lower eyelid; Translations: [Cysts of right lower eyelid] Onset: 01-23-2015 Resolved: 11-19-2021 01-23-2015 Episodic Other eye disorders (8 sources) Lesion of eyelid; Translations: [Unspecified disorder of eyelid] Onset: 01-30-2015 Resolved: 11-19-2021 01-30-2015 Episodic Other screening for suspected conditions (not mental disorders or infectious disease) (8 sources) Encounter for screening mammogram for malignant neoplasm of breast; Translations: [Encounter for screening for lipoid disorders] Onset: 09-24-2022 Episodic Other upper respiratory infections (2 sources) Laryngitis; Translations: [Acute laryngitis] Onset: 06-13-2022 Episodic Results Test Name Value Interpretation Reference Range Facility Internal Medicine Office Vis it[facility]ollis 12-06-2024 Internal Medicine Office Visit [facility] Internal Medicine [address] [place] [address] [place] [address] OFFICE VISIT Date of Service: 12/07/24 MR#: [id number] Acct: [id number] Name: KIRA HOYT Rep #: [id number] : 1980 Provider: Dr. Candice carcamo MD Age/Sex: 44/F Location: [facility] [email or web address] Status: Signed Intake Vital Signs 08/31/24 10:13 12/07/24 10:08 Height 5 ft 7 in 5 ft 7 in Weight: 196 lb 6 oz BMI 30.7 BP 124/70 H Blood Pressure Location Lt brachial Position Sitting Respiration 16 Pulse 96 Pulse Source Monitor Temp 97.8 F Temp Source Temporal Pulse Oximetry (%) 98 Oxygen Delivery Method room air Intake Visit Reasons: 3 M FU Chief Complaint: fu Fitting Room Supervisor Required: No Accompanied by: Self Is patient in pain?: No Allergies No Known Allergies Allergy (Verified 12/07/24 10:08) Medications ???Medication ???Instructions ???Recorded ???Confirmed ???Type multivitamin 1 tab PO QAM 03/09/24 12/07/24 His tory levonorgestrel (Mirena) 1 device intrauterine DAILY 12/07/24 History medical marajuana inhalation PRN 08/31/24 12/07/24 H istory cyclobenzaprine 5 mg tablet 5 mg PO BID PRN pain #10 tabs 10/1 4/25 10/14/25 Rx dextroamphetamine-amp hetamine 5 mg 1 tab PO QDAY PRN ADHD 30 days # 30 12/07/24 12/07/24 Rx tablet tabs dextroamphetamine-amp hetamine ER 1 cap PO QDAY 30 days #30 caps 12/07/24 Rx 30 mg 24hr capsule,extend release Nurse's Note: question on medication interaction PFSH Medical History Marijuana use Alcohol use Syncope Smoker Insomnia Family hx of colon cancer Patellofemoral pain syndrome of both knees ADHD Surgical History S/P colonoscopy Hx of dilation and curettage S/P appendectomy Family History Aunt Diabetes Uncle Alzheimer dementia Lung cancer Grandfather Colon cancer Alzheimer dementia Sister Kidney disease Brother Colon polyps Mother Colon polyps Father Afib Social History adopted: No household members: significant other number of children: 1 current occupational status: employed 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 pets and animals: Yes (1) pets and animals: dog(s) history of recent travel: No sexually active: Yes Smoking Status: Current some day smoker tobacco type: cigarettes Tobacco: How many years used: 20 quit status: not considering quitting alcohol intake: current alcohol intake frequency: a few times a week Alcohol type: beer and other details: <3 in 1 sitting typicall occasionally on a weekend will have >3 substance use type: marijuana caffeine: No during the past year weight has: remained stable what type of physical activity do you participate in: walking and weight training frequency: 1-2 times per week seatbelt use: always do you feel safe at home: Yes additional social history: S/O Rich HPI HPI Chief Complaint: fu Details: KIRA HOYT, is a 44 F who presents to the office today for a follow up. She is due for some routine blood work and is up to date on her screening. She previously declined any further COVID vaccines. She never got her tetanus up to date and she doesn't want a flu shot. She doesn't smoke and doesn't need any refills. She reports she is eating healthy and staying active. The patient has a history of ADHD, having been diagnosed in her early 30s. She reports she was diagnosed by the [facility] in [place] who did her initial assessment through a psychiatrist. She reports she was previously on vyvanse which worked well, but she wasn't able to afford it, so she was changed to adderall. She has been maintained on that ever since. At her last office visit, she expressed a desire to go back on the vyvanse. She was referred to psychiatry, but reports that she has had trouble getting it scheduled. She does still plan on doing that. The patient hasn't had any further syncopal episodes since she was last seen. The patient reports she woke up on Friday morning and wasn't able to move it. She reports it is a little better since, but she continues to have restricted movement. She states she she did take some ibuprofen the first day. She reports it helped a little, but not much. She reports she wasn't able to go to work yesterday. She went to the massage therapist in the past and that did help previously. She rates it 5/10 currently. She also reports she is going through duran-menopause. She reports she has noticed problems with energy, brain fog and weight gain. She does see OBGYN, but reports she didn't really have symp (more content not included)... Normal [facility] Thyroidon 09-21-2024 Thyroid [facility] Imaging Services [address], [place] [id number] Thyroid MR#: [id number] Acct: [id number] Name: KIRA HOYT Rep #: [id number] : 1980 F 43 From: Damir Maria MD PCP: Dr. Candice Pepe MD Status: REG CLI Study: Thyroid Date of Exam: 09/21/24 Exam# [id number] Ordering Dr: Candice Pepe MD PROCEDURE: THYROID 09/21/2024 REASON FOR EXAM: ENLARGED THYROID TECHNIQUE: THYROID COMPARISON: None FINDINGS: Right lobe measures 4.8 x 1.7 x 1.6 cm. It is heterogeneous. There is a well-defined isoechoic to thyroid 0.9 x 0.9 x 0.7 cm nodule which scores a TR 3. Given its size, it can be followed sonographically at 1 3 and 5 years. The left lobe measures 5.0 x 1.4 x 1.5 cm, it is homogeneous and contains 2 separate complex solid and cystic nodules, larger measures 1.0 x 1.0 x 0.7 cm, smaller measures 0.7 x 0.5 x 0.6 cm. Both measure TR 3 as well and can be followed sonographically. The isthmus measures 0.2 cm and contains a hypoechoic well-defined 0.4 x 0.4 x 0.3 cm lesion which scores TR 4 and can also be followed sonographically. No hyperemia or suspicious adenopathy noted. US/Thyroid IMPRESSION: Borderline enlarged thyroid gland with bilateral nodules as discussed above. The nodules can be followed sonographically at 1, 3, and 5 year intervals. Reading Location: [id number] CC: Dr. Candice Pepe MD Perforating Machine Operator: Signed Normal [facility] Internal Medicine Office Vis ito 08-30-2024 Internal Medicine Office Visit [facility] [place] [address] [place] [address] OFFICE VISIT Date of Service: 08/31/24 MR#: [id number] Acct: [id number] Name: KIRA HOYT Rep #: [id number] : 1980 Provider: Dr. 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 PATIENT Fitting Room Supervisor Required: No Is patient in pain?: No Allergies No Known Allergies Allergy (Verified 08/31/24 10:03) Medications ???Medication ???Instructions ???Recorded ???Confirmed ???Type multivitamin 1 tab PO QAM 03/09/24 08/31/24 His tory levonorgestrel (Mirena) 1 device intrauterine DAILY 08/31/24 History dextroamphetamine-amp hetamine 5 mg 1 tab PO QDAY PRN ADHD 30 days # 30 08/31/24 08/31/24 Rx tablet tabs dextroamphetamine-amp hetamine ER 1 cap PO QDAY 30 days #30 caps 10/1808/31/24 Rx 30 mg 24hr capsule,extend release medical marajuana inhalation PRN 08/31/24 History Nurse's Note: Pt needs refills on adderall, patient states pcp managed./ Pt was on vyvanse in the past which worked better but insurance did not cover. Change of insurance as she has been utalizing the prn dose and needing it more. [facility] Medical History (Updated 08/31/24 @ 10:[address] Candice Pepe MD) Marijuana use Alcohol use Syncope Smoker Insomnia Family hx of colon cancer Patellofemoral pain syndrome of both knees ADHD Surgical History S/P colonoscopy Hx of dilation and curettage S/P appendectomy Family History (Updated 08/31/24 @ 10:[address] Candice Pepe MD) Aunt Diabetes Uncle Alzheimer dementia Lung cancer Grandfather Colon cancer Alzheimer dementia Sister Kidney disease Brother Colon polyps Mother Colon polyps Father Afib Social History (Updated 08/31/24 @ 10:[address] 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 pets and animals: Yes (1) pets and animals: dog(s) history of recent travel: No sexually active: Yes Smoking Status: Current some day smoker tobacco type: cigarettes Tobacco: How many years used: 20 quit status: not considering quitting alcohol intake: current alcohol intake frequency: a few times a week Alcohol type: beer and other details: <3 in 1 sitting typicall occasionally on a weekend will have >3 substance use type: marijuana caffeine: No during the past year weight has: remained stable what type of physical activity do you participate in: walking and weight training frequency: 1-2 times per week seatbelt use: always do you feel safe at home: Yes additional social history: S/O Rich Questionnaire PQH-9 BMS Over the last 2 weeks, how often have you been bothered by any of the following problems? 1. Little interest or pleasure in doing things: not at all 2. Feeling down, depressed, or hopeless: not at all 3. Trouble falling or staying asleep, or sleeping too much: not at all 4. Feeling tired or having little energy: not at all 5. Poor appetite or overeating: not at all 6. Feeling bad about yourself - or that you are a failure or have let yourself and your family down: not at all 7. Trouble concentrating on things, such as reading the newspaper or watching television: not at all 8. Moving or speaking so slowly that other people could have noticed? - Or the opposite - being so fidgety or restless that you have been moving around a lot more than usual: not at all 9. Thoughts that you would be better off or of hurting yourself in some way: not at all Total score: 0 If you checked off any problems, how difficult have these problems made it for you to do your work, take care of things at home, or get along with other people?: not difficult at all Source: Developed by Drs. Tuan Gee, Olivia Nowak, Damion Beltran and colleagues, with an educational son from [employer]. HPI HPI Details: KIRA HOYT, is a 43 F who presents to the office today to transition care. She was seeing Dr. Feliciano and last saw her in February. She is up to date on her routine blood work and screening. She doesn't want any further COVID vaccines. She is due for a tetanus booster. She doesn't smoke and d (more content not included)... Normal [facility] PAP IG HPV APTIMA 16/18,45on 06-09-2024 ADEQ Comment Normal . [facility] Comment on above: Order Comment: Speci men Comment: [id number] Specimen Comment: Source.............Cervix Specimen Comment: No. of containers..01 ThinPrep Vial Result Comment: Sati sfactory for evaluation. No endocervical component is identified. Performed By: #### L 7400.0280 #### [facility] Laboratory [address] [place], [place], [id number] COMM . Normal . [facility] Comment on above: Order Comment: Speci men Comment: [id number] Specimen Comment: Source.............Cervix Specimen Comment: No. of containers..01 ThinPrep Vial Performed By: #### L 7400.0280 #### [facility] [address] [place], [place], [id number] COMMENT Comment Normal . [facility] Comment on above: Order Comment: Speci men Comment: [id number] Specimen Comment: Source.............Cervix Specimen Comment: No. of containers..01 ThinPrep Vial Result Comment: This liquid based ThinPrep(R) pap test was screened with the use of an image guided system. Performed By: #### L 7400.0280 #### [facility] [address] [place], [place], [id number] DIAG Comment Normal . [facility] Comment on above: Order Comment: Speci men Comment: [id number] Specimen Comment: Source.............Cervix Specimen Comment: No. of containers..01 ThinPrep Vial Result Comment: NEGA TIVE FOR INTRAEPITHELIAL LESION OR MALIGNANCY. THIS SPECIMEN WAS RESCREENED PART OF OUR TIMING MACHINE OPERATOR PROGRAM. Performed By: #### L 7400.0280 #### [facility] [address] [place], [place], [id number] HPV APTIMA, HR Negative Normal Negative [facility] Comment on above: Order Comment: Speci men Comment: [id number] Specimen Comment: Source.............Cervix Specimen Comment: No. of containers..01 ThinPrep Vial Result Comment: This nucleic acid amplification test detects fourteen high- risk HPV types (16,18,31,33,35,39,45,51,52,56,58,59,66,68) without differentiation. Performed By: #### L 7400.0280 #### [facility] [address] [place], [place], [id number] HPV Sayda Rfx Comment Normal . [facility] Comment on above: Order Comment: Speci men Comment: [id number] Specimen Comment: Source.............Cervix Specimen Comment: No. of containers..01 ThinPrep Vial Result Comment: Crit eria not met, HPV Genotype not performed. Performed at: - [address] [id number] Dismantler: Celia Rm MD, Phone: [phone] Performed at: = - [facility] [id number] Dismantler: Celia Rm MD, Phone: [phone] Performed By: #### L 7400.0280 #### [facility] [address] [place], [place], [id number] PAPSMR Comment Normal . [facility] Comment on above: Order Comment: Speci men Comment: [id number] Specimen Comment: Source.............Cervix Specimen Comment: No. of containers..01 ThinPrep Vial Result Comment: The Pap smear is a screening test designed to aid in the detection of premalignant and malignant conditions of the uterine cervix. It is not a diagnostic procedure and should not be used as the sole means of detecting cervical cancer. Both false-positive and false-negative reports do occur. Performed By: #### L 7400.0280 #### [facility] [address] [place], [place], [address] PERFORM Comment Normal . [facility] Comment on above: Order Comment: Speci men Comment: [id number] Specimen Comment: Source.............Cervix Specimen Comment: No. of containers..01 ThinPrep Vial Result Comment: Mars Looney Head Bellhop Captain (ASCP) Performed By: #### L 7400.0280 #### [facility] [address] [place], [place], [address] QC REV Comment Normal . [facility] Comment on above: Order Comment: Speci men Comment: [id number] Specimen Comment: Source.............Cervix Specimen Comment: No. of containers..01 ThinPrep Vial Result Comment: Edna Ladd Head Bellhop Captain (ASCP) Performed By: #### L 7400.0280 #### [facility] Laboratory [address] [place], [place], [id number] Cervical or vaginal specimen microscopic examination by liquid based cytology (reportOrdered By: Kathy Nwoak on 06-02-2024 Cytology report Cyto stain.thin prep Doc (Cvx/Vag) Comment . [facility] Comment on above: Criteria not met, HP V Genotype not performed.Performed at: - [address] [id number] Director: Celia Rm MD, Phone: [phone] at: =[facility] [id number] Director: Celia Rm MD, Phone: [phone] Cervical or vagninal specime n microscopic examination by cytology stain (reported asOrdered By: Kathy Nowak on 06-02-2024 Cytology report Cyto stain Doc (Cvx/Vag) Comment . [facility] Comment on above: The Pap smear is a s creening test designed to aid in thedetection of premalignant and malignant conditions of theuterine cervix. It is not a diagnostic procedure andshould not be used as the sole means of detecting cervicalcancer. Both false-positive and false-negative reports dooccur. Detection in cervical specim en of any of human papilloma virus (HPV) 16, 18, 31, 33,Ordered By: Kathy Nowak on 06-02-2024 HPV 16+18+31+33+35+39+45+51 +52+56+58+59+66+68 DNA Probe+sig amp Ql (Cvx) Negative Negative [facility] Comment on above: This nucleic acid am plification test detects fourteen high-risk HPV types (16,18,31,33,35,39,45,51,52,56,58,59,66,68)without differentiation. Laboratory - CytologyOrdered By: Kathy Nowak on 06-02-2024 Label Printer Cyto stain Nom (Cvx/Vag) [ID] Comment . [facility] Comment on above: Catie Smith otechnologist (ASCP) Laboratory - Miscellaneous t estsOrdered By: Kathy Nowak on 06-02-2024 Service comment (Unsp spec) [Interp] . . [facility] No Panel InformationOrdered By: Kathy Nowak on 06-02-2024 Pap Smear QC Review Comment . [facility] Comment on above: Norbert Carlos totechnologist (ASCP) Pap Smear Specimen Adequacy Comment . [facility] Comment on above: Satisfactory for lvei luation. No endocervical component is identified. 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 Required: No Is patient in pain?: No Allergies No Known Allergies Allergy (Verified 06/02/24 07:19) Medications ???Medication ???Instructions ???Recorded ???Confirmed ???Type multivitamin 1 tab PO QAM 03/09/24 06/02/24 His tory levonorgestrel (Mirena) 1 device intrauterine DAILY 06/02/24 History dextroamphetamine-amp hetamine ER 1 cap PO QDAY 30 days #30 caps 06/02/24 Rx 30 mg 24hr capsule,extend release dextroamphetamine-amp hetamine 5 mg 1 tab PO QDAY PRN ADHD 30 days # 10 05/25/24 06/02/24 Rx tablet tabs Is last menstrual period known: Yes Post menopausal: No Patient : No : No Control Method: Mirena [facility] Medical History Marijuana use Alcohol use Syncope Smoker Insomnia Family hx of colon cancer Medication monitoring encounter Colon cancer screening Preventative health care Patellofemoral pain syndrome of both knees ADHD Surgical History Hx of dilation and curettage S/P appendectomy Family History Aunt Diabetes Uncle Cancer Alzheimer dementia Grandfather Colon cancer Alzheimer dementia Sister Kidney disease Brother Colon polyps Mother Colon polyps Social History adopted: No household members: significant other number of children: 1 current occupational status: employed current occupation: [employer] pets and animals: Yes (1) pets and animals: dog(s) history of recent travel: No sexually active: Yes Smoking Status: Current every day smoker (Patient did not smoke today.) Tobacco: How many years used: 20 alcohol intake: current alcohol intake frequency: a few times a week substance use type: marijuana caffeine: No during the past year weight has: remained stable what type of physical activity do you participate in: walking and weight training frequency: 1-2 times per week seatbelt use: always do you feel safe at home: Yes additional social history: S/O [facility] Encounter for routine gynecological examination Details: KIRA HOYT is a 43 year old who presents for new annual exam. mirena was placed in 4 years. defers breast exam today due to getting nipples pierced last week. normal mammogram in [place] and reports no concerns Last PAP: 3 years ago History of abnormal PAP: yes Last mammogram: 04/20 History of abnormal mammogram: normal Colon cancer screenin/25 Other preventative health care screenings: PCP Female Reproductive History Last Menstrual Period: 05/23/24 Cycle Length: 21-35 Bleeding Duration: 2 Questions: metorrhagia: No, sexually active: Yes, dyspareunia: No and PCB: No Menopausal Symptoms: No hot flashes, Yes night sweats, No mood changes, No difficulty concentrating, No sleep problems and No change in libido ROS Const Constitutional: Reports system reviewed and no additional complaints, except as documented and night sweats Cardio Card: Reports system reviewed and no additional complaints, except as documented Resp Resp: Reports system reviewed and no additional complaints, except as documented GI GI: Reports system reviewed and no additional complaints, except as documented : Reports system reviewed and no additional complaints, except as documented; Denies difficulty voiding, dysuria, hot flashes or urinary frequency Skin Skin/Breast: Reports system reviewed and no additional complaints, except as documented Neuro Neuro: Reports system reviewed and no additional complaints, except as documented Psych Psych: Reports system reviewed and no additional complaints, except as documented; Denies anhedonia, anxiety, change in libido, depression or difficulty concentrating Exam Const General: cooperative, healthy appearing, comfortable and no acute distress Orientation: alert, awake and oriented x3 Neck Neck: normal visual inspection and full ROM Thyroid: thyroid normal Chest Chest palpation inspection: deferred Resp Effort Inspection: normal respiratory effort, able to speak in complete sentences and symmetric chest movement GI Inspection: normal to inspection Palpation: s (more content not included)... Normal [facility] Internal Medicine Office Vis claudette 05-25-2024 Internal Medicine Office Visit [facility] [address] [place] [address] [place] [address] OFFICE VISIT Date of Service: 05/25/24 MR#: [id number] Acct: [id number] Name: KIRA HOYT Rep #: [id number] : 1980 Provider: JAKE Chi Age/Sex: 43/F Location: [facility] Status: Signed Intake Vital Signs 04/06/24 09:30 05/25/24 13:51 Height 5 ft 7 in 5 ft 7 in Weight: 197 lb BMI 30.8 BP 118/80 Blood Pressure Location Lt brachial Position Sitting Respiration 16 Pulse 107 H Pulse Source Monitor Temp 97.6 F L Temp Source Temporal Pulse Oximetry (%) 97 Oxygen Delivery Method room air Intake Visit Reasons: ACUTE 3 M FU-OK PER TA Chief Complaint: FU Chronic Conditions Fitting Room Supervisor Required: No Is patient in pain?: No Allergies No Known Allergies Allergy (Verified 05/25/24 13:48) Medications ???Medication ???Instructions ???Recorded ???Confirmed ???Type multivitamin 1 tab PO QAM 03/09/24 05/25/24 His tory levonorgestrel (Mirena) 1 device intrauterine DAILY 05/25/24 History dextroamphetamine-amp hetamine ER 1 cap PO QDAY 30 days #30 caps 05/25/24 Rx 30 mg 24hr capsule,extend release dextroamphetamine-amp hetamine 5 mg 1 tab PO QDAY PRN ADHD 30 days # 10 05/25/24 05/25/24 Rx tablet tabs Nurse's Note: Will not need a refill until next month. [facility] Medical History Marijuana use Alcohol use Syncope Smoker Insomnia Family hx of colon cancer Medication monitoring encounter Colon cancer screening Preventative health care Patellofemoral pain syndrome of both knees ADHD Surgical History Hx of dilation and curettage S/P appendectomy Family History Aunt Diabetes Uncle Cancer Alzheimer dementia Grandfather Colon cancer Alzheimer dementia Sister Kidney disease Brother Colon polyps Mother Colon polyps Social History adopted: No household members: significant other number of children: 1 current occupational status: employed current occupation: [employer] pets and animals: Yes (1) pets and animals: dog(s) sexually active: Yes Smoking Status: Current every day smoker (Patient did not smoke today.) Tobacco: How many years used: 20 alcohol intake: current alcohol intake frequency: a few times a week substance use type: marijuana caffeine: No what type of physical activity do you participate in: none do you feel safe at home: Yes HPI HPI Chief Complaint: FU Chronic Conditions Details: KIRA HOYT, is a 43 F who presents to the office today for medication f/u for her Adderall. Patient has been on the medication for around 12 years she states. She states that she has pretty much been on the same dose during the same time. She states that she actually was thinking that she may want to try to decrease the 30mg down to 20 mg as sometimes she feels like she is too hyper- focused and she states that it is not always a good thing for her job. She denies ever having any side effects or tolerance issues with the medication. She denies Chest pains, / pressures, palpitations, shortness of breath, sweating, headaches, dizziness, or visual change. Patient is currently a smoker but not all the time Patient does consume caffeine sometimes but not a lot She does have occasional ETOH use Some family history with her father who had a stent placed. No HTN or diabetes (father is pre- diabetic). ROS Const Constitutional: No body ache, chills, excessive sweating, fatigue, fever(s), frequent falls, headache(s), snoring, weakness, sleep problems or change in appetite Eyes Eyes: No blurry vision, change in vision, eye pain or Light sensitivity ENT ENT: No abnormal hearing, ear or mastoid pain, tinnitus, nasal congestion, headache(s), neck pain or sore throat Resp Respiratory: No cough, shortness of breath, snoring or wheezing Cardio Cardiology: No chest pain at rest, chest pain with exertion, excessive sweating, shortness of breath, dyspnea on exertion, lightheadedness, orthopnea or palpitations Gastro GI: No abdominal pain, change in bowel habits, constipation, cramping, diarrhea, nausea/dyspepsia or vomiting Genitourinary-Female: No burning urination, painful urination, urinary incontinence, urinary frequency, abnormal vaginal bleeding or pelvic pain Musc Musculoskeletal: No abnormal gait, joint pain, back pain, limited range of motion, neck pain or numbness Skin Skin: No dry skin, redness, lesions, itchy eyes, rash or wounds Neuro Neurology: No abnormal gait, abnormal hearing, weakness, frequent falls (more content not included)... Normal [facility] Colonoscopy Reporton 025 Colonoscopy Report [facility] Medical Records Department [address] [place], [place] [address] Colonoscopy Report MR#: [id number] Acct: [id number] Name: KIRA HOYT Rep #: [id number] : 1980 43 From: Cortez Alcantar MD PCP: Dr. Rolo Feliciano MD [place] [facility] Name: Kira Hoyt Procedure Date: 04/06/2024 11:02 AM Date of : 1980 Age: 43 Procedure: Colonoscopy Indications: Screening for colon cancer: Family history of colorectal cancer in distant relative(s) 60 or older Providers: Cortez Alcantar MD Referring MD: Cortez Alcantar MD Medicines: Monitored Anesthesia Care Patient Profile: Refer to note in patient chart for documentation of history and physical. Last Colonoscopy: none. The patient's first colonoscopy is today. Complications: No immediate complications. Estimated blood loss: Minimal. Procedure: Pre-Anesthesia Assessment: - Prior to the procedure, a History and Physical was performed, and patient medications and allergies were reviewed. The patient's tolerance of previous anesthesia was also reviewed. The risks and benefits of the procedure and the sedation options and risks were discussed with the patient. All questions were answered, and informed consent was obtained. Prior Anticoagulants: The patient has taken no anticoagulant or antiplatelet agents. ASA Grade Assessment: II - A patient with mild systemic disease. After reviewing the risks and benefits, the patient was deemed in satisfactory condition to undergo the procedure. After I obtained informed consent, the scope was passed under direct vision. Throughout the procedure, the patient's blood pressure, pulse, and oxygen saturations were monitored continuously. The adult colonoscope was introduced through the anus and advanced to the cecum, identified by appendiceal orifice and ileocecal valve. The ileocecal valve, appendiceal orifice, and rectum were photographed. The entire colon was well visualized. The colonoscopy was performed without difficulty. The patient tolerated the procedure well. The quality of the bowel preparation was adequate. Moderate Sedation: See the other procedure note for documentation of moderate sedation with intraservice time. See the other procedure note for documentation of moderate sedation with intraservice time. Scope In: 11:21:46 AM Scope Withdrawal Time 0 hours 25 minutes 40 seconds Scope Out: 11:56:54 AM Total Procedure Duration Time 0 hours 35 minutes 8 seconds Findings: The perianal and digital rectal examinations were normal. A 3 mm polyp was found in the sigmoid colon. The polyp was sessile. The polyp was removed with a cold biopsy forceps. Resection and retrieval were complete. Verification of patient identification for the specimen was done by the nurse using the patient's name, date and medical record number. Estimated blood loss was minimal. Seven sessile polyps were found in the proximal rectum. The polyps were 2 to 3 mm in size. These polyps were removed with a cold biopsy forceps. Resection and retrieval were complete. Verification of patient identification for the specimen was done by the nurse using the patient's name, date and medical record number. Estimated blood loss was minimal. Two semi-pedunculated polyps were found in the rectum. The polyps were 5 to 8 mm in size. These polyps were removed with a hot snare. Resection and retrieval were complete. Verification of patient identification for the specimen was done by the nurse using the patient's name, date and medical record number. Estimated blood loss was minimal. The exam was otherwise without abnormality on direct and retroflexion views. Impression: - One 3 mm polyp in the sigmoid colon, removed with a cold biopsy forceps. Resected and retrieved. - Seven 2 to 3 mm polyps in the proximal rectum, removed with a cold biopsy forceps. Resected and retrieved. - Two 5 to 8 mm polyps in the rectum, removed with a hot snare. Resected and retrieved. - The examination was otherwise normal on direct and retroflexion views. Recommendation: - Discharge patient to home (ambulatory). - High fiber diet indefinitely. - Await pathology results. - Repeat colonoscopy in 3 years for surveillance. - Return to my office PRN. - Continue present medications. Procedure Code(s): --- Professional --- 29501, Colonoscopy, flexible; with removal of tumor(s), polyp(s), or other lesion(s) by snare technique 03170, 59, Colonoscopy, flexible; with biopsy, single or multiple Diagnosis Code(s): --- Professional --- Z12.11, Encounter for screening for malignant neoplasm of colon Z80.0, Family history of malignant neoplasm of digestive organs D12.8, Benign neoplasm of rectum D12.5, Benign neoplasm of sigmoid colon CPT copyright 2021 [place] (more content not included)... [facility] MR/POSTOP.ANEon 04-06-2024 MR/POSTOP.[facility] Medical Records Department [address] [place] [address] Anesthesia Postop Eval I 04/06/24 1211 MR#: [id number] Acct: [id number] Name: KIRA HOYT Rep #: [id number] : 1980 43 From: Kashif Morgan PCP: Dr. Rolo Feliciano MD [place] [facility] [place] Race[place] C Location: [place] [address] Anesthesia: Postop Eval I Current Vital Signs Temperature: 97.3 F Pulse Rate: 72 Blood Pressure: 91/66 Respiratory Rate: 16 Pulse Ox: 99 Oxygen Delivery Method: Room Air Assessment Airway patent: Yes Spontaneous unlabored respirations: Yes Mental status: Awake and Calm nausea: No Vomiting: No Anesthesia Complication: No Fluid Hydration Crystalloid volume administer (ml): 75 Total IV fluid infused: 75 Progress Note Anesthesia document: Postop Eval 1 completed: Yes 04/06/24 1213 Date Kashif Skelton Signature: Date CC: Signed [facility] MR/[id number] 04-06-2024 MR/POSTOPAN2 [facility] Medical Records Department [address] [place] [address] Anesthesia Postop Eval II 04/06/24 1318 MR#: [id number] Acct: [id number] Name: KIRA HOYT Rep #: [id number] : 1980 43 From: Juan Rodríguez MD PCP: Dr. Rolo Feliciano MD Status:[place] [facility] [place] C Location: [place] Anesthesia Postop Eval I Sum Postop Eval Completion status Anesthesia document: Postop Eval 1 completed: Yes Anesthesia Postop Eval I Summary Anesthesia Postop Eval I Summary: Anesthesia Postop Eval I: Assessment Summary Airway patent Yes 04/06/24 12:13 [email or web address] Spontaneous unlabored Yes 04/06/24 12:13 [email or web address] respirations Mental status Awake,Calm 04/06/24 12:13 [email or web address] nausea No 04/06/24 12:13 [email or web address] Vomiting No 04/06/24 12:13 [email or web address] Anesthesia Postop Eval I: Fluid Summary Crystalloid volume administer 75 04/06/24 12:13 [email or web address] (ml) Colloids volume administered ( ml) Blood Product volume administered (ml) Total IV fluid infused 75 04/06/24 12:13 [email or web address] Anesthesia Postop Eval I: Summary Notes Anesthesia Complication No 04/06/24 12:13 [email or web address] Anesthesia Complication Comment: Post-operative progress note Anesthesia: Postop Eval II Evaluation Mental status: Awake and Calm Pain Level: 0 nausea: No Vomiting: No Complications Anesthesia Complication: No 04/06/24 1319 Date Juan Rodríguez MD Cosigner Signature: Date CC: Signed Normal [facility] ,Urineon 04-06-2024 Beta HCG ( test) Ql (U) Negative [facility] Comment on above: Result Comment: Very dilute urine specimens, as indicated by a low specific gravity, may not contain development representative levels of hCG. If is still suspected, a first morning urine specimen should be collected 48 hours later and tested. Performed By: #### L [phone] #### [facility] Laboratory [address] [place], [place], [id number] Surgery Specimen Level Josué 04-06-2024 Surgery Specimen Level IV -------- Patient Age/Sex Location Account Attending Physician -------- KIRA HOYT 43/F EN [id number] Dr. Cortez Alcantar MD -------- Specimen: [id number] Received: 04/06/24 Status: JANI Aguilera Num: [id number] Spec Type: COLON BX Subm Dr: Dr. Cortez Alcantar MD HEADER OPERATION: Colonoscopy, polypectomy and biopsies PRE-OP DIAGNOSIS: Colon cancer screening TISSUE SUBMITTED: A- Rectal polyp biopsy, B- Sigmoid colon biopsy, C- Rectal polyp #2 -------- MICROSCOPIC DIAGNOSIS A. Rectal polyp, biopsy: Fragments of hyperplastic polyp. B. Sigmoid colon, biopsy: Fragments of hyperplastic polyp. C. Rectal polyp #2, biopsy: Hyperplastic polyp. Fragments of inflammatory polyp. . 04/07/2024 MICROSCOPIC DESCRIPTION Slides are reviewed. GROSS DESCRIPTION A. Received in fixative is one container labeled with the patient's name and designated Rectal polyp biopsy. The specimen consists of multiple irregular fragments of light perkins soft tissue that in aggregate measure 2.5 x 0.5 x 0.1 cm. The specimen is totally submitted in one cassette. B. Received in fixative is one container labeled with the patient's name and designated Sigmoid colon biopsy. The specimen consists of two irregular fragments of light perkins soft tissue that in aggregate measure 0.6 x 0.3 x 0.1 cm. The specimen is totally submitted in one cassette. C. Received in fixative is one container labeled with the patient's name and designated Rectal polyp#2. The specimen consists of three perkins-pink polyps measuring in aggregate 1 x 1 x 0.3cm. The entire specimen is submitted in one cassette. . 04/06/2024 TC:1 CPT:39607n7 -------- Patient Age/Sex Location Account Attending Physician -------- KIRA HOYT 43/F EN [id number] Dr. Cortez Alcantar MD -------- Signed (signature on file) Dr. Justyn Alcocer MD 04/07/24 1048 -------- Normal [facility] Comment on above: Performed By: #### P SUIV #### [facility] Laboratory [address] [facility] [place], [address] Urine testOrdered By: Mathew Huff on 04-06-2024 HCG ( test) Ql (U) Negative [facility] Comment on above: Very dilute urine sp ecimens, as indicated by a low specificgravity, may not contain development representative levels of hCG. If is still suspected, a first morning urinespecimen should be collected 48 hours later and tested. Breast Limited Unilateralon 03-30-2024 Breast Limited Unilateral [facility] Imaging Services [address] [place] [address] Breast Limited Unilateral MR#: [id number] Acct: [id number] Name: KIRA HOYT Rep #: [id number] : 1980 F 43 From: Zachery phillip MD PCP: Dr. Rolo Feliciano MD Status: REG CLI Study: Breast Limited Unilateral Date of Exam: Exam# [id number] Ordering Dr: Rolo Feliciano MD EXAM: BREAST LIMITED UNILATERAL CLINICAL HISTORY: Abnormal screening mammogram. COMPARISON: Comparison is made with prior mammogram dated March 30, 2024 and March 09, 2024. TECHNIQUE: Using the Toolwi S8 ultrasound unit with a variable frequency 6-15 transducer radial and antiradial images of the left breast were performed. Color Doppler was used. FINDINGS: Breast Ultrasound Findings: Targeted ultrasound imaging to the upper outer quadrant as directed by the patient demonstrates no sonographic abnormality. No mass or cyst is seen. US/Breast Limited Unilateral IMPRESSION: Negative left breast ultrasound. In the presence of normal or benign imaging a clinically palpable breast mass should be managed using clinical parameters. A letter with findings and recommendations will be mailed to the patient. ASSESSMENT: BIRADS 1 NEGATIVE RECOMMENDATION: 1: ROUTINE ANNUAL FOLLOW-UP COMMENTS: Appropriate information was entered into a reminder system with a target due date for the next mammogram. Reading Location: [place] [address] CC: Dr. Rolo Felciiano MD Perforating Machine Operator: Signed Normal [facility] DIAG MAMM W/CAD, UNILATon DIAG MAMM W/CAD, UNILAT [facility] Imaging Services [address] [place] [address] DIAG MAMM W/CAD, UNILAT MR#: [id number] Acct: [id number] Name: KIRA HOYT Rep #: [id number] : 1980 F 43 From: Zachery phillip MD PCP: Dr. Rolo Feliciano MD Status: REG CLI Study: DIAG MAMM W/CAD, UNILAT Date of Exam: 03/30/24 Exam# [id number] Ordering Dr: Rolo Feliciano MD PROCEDURE: DIAG MAMM W/CAD, UNILAT compression spot views in the mediolateral oblique and craniocaudad projections were obtained of the left breast. REASON FOR EXAM: F, Age 43 y/o, abnormal screening mammogram. TECHNIQUE: Bilateral screening digital breast tomosynthesis with 2D and 3D images. Computer aided detection. COMPARISON: Prior exam(s) dating back to March 09, 2024.. FINDINGS: There are scattered areas of fibroglandular density. No suspicious masses, areas of developing architectural distortion, or suspicious calcifications.. Sonographic correlation recommended. BI/DIAG MAMM W/CAD, UNILAT IMPRESSION: BI-RADS 0: INCOMPLETE - NEED ADDITIONAL IMAGING EVALUATION. Follow-up code: Sonographic correlation. The patient will be notified of the results by letter. Reading Location: [facility] CC: Dr. Rolo Feliciano MD Perforating Machine Operator: Signed Normal [facility] Internal Medicine Office Vis iton 03-11-2024 Internal Medicine Office Visit [facility] [address] [place] [address] [place] [address] OFFICE VISIT Date of Service: 03/11/24 MR#: [id number] Acct: [id number] Name: KIRA HOYT Rep #: [id number] : 1980 Provider: Dr. Rolo odom MD Age/Sex: 43/F Location: [facility] Status: Signed Intake Vital Signs 11/13/23 15:13 03/09/24 14:14 Height 5 ft 7 in 5 ft 7 in Weight: 198 lb BMI 31.0 BP 146/94 H Blood Pressure Location Lt brachial Position Sitting Respiration 16 Pulse 102 H Pulse Source Monitor Temp 97.3 F L Temp Source Temporal Pulse Oximetry (%) 99 Oxygen Delivery Method room air Intake Visit Reasons: 3 M FU Chief Complaint: FU Chronic Conditions Fitting Room Supervisor Required: No Accompanied by: Self Is patient in pain?: No Allergies No Known Allergies Allergy (Verified 03/11/24 16:31) Medications ???Medication ???Instructions ???Recorded ???Confirmed ???Type dextroamphetamine-amp hetamine 5 mg 1 tab PO QDAY 11/13/23 03/11/24 History tablet multivitamin 1 tab PO QAM 03/09/24 03/11/24 History dextroamphetamine-amp hetamine ER 1 cap PO QDAY 30 days #30 caps 03/11/24 03/11/24 Rx 30 mg 24hr capsule,extend release [facility] Medical History (Updated 03/11/24 @ 16:[address] Rolo Feliciano MD) Insomnia Family hx of colon cancer Medication monitoring encounter Colon cancer screening Preventative health care Patellofemoral pain syndrome of both knees ADHD Surgical History S/P appendectomy Family History Aunt Diabetes Uncle Cancer Alzheimer dementia Grandfather Colon cancer Alzheimer dementia Sister Kidney disease Brother Colon polyps Mother Colon polyps Social History adopted: No household members: significant other number of children: 1 current occupational status: employed current occupation: [employer] pets and animals: Yes (1) pets and animals: dog(s) sexually active: Yes Smoking Status: Current some day smoker Tobacco: How many years used: 20 alcohol intake: current alcohol intake frequency: a few times a week substance use type: marijuana caffeine: No what type of physical activity do you participate in: none do you feel safe at home: Yes HPI HPI Chief Complaint: FU Chronic Conditions Details: KIRA HOYT, is a 43 F who presents to the office today for follow-up of her chronic conditions. No acute concerns at this time. History of ADHD currently on Adderall. Has been on Adderall for over 10 years. Doing well. She states that she typically takes it first in the morning. She denies chest tightness or shortness of breath. Blood pressure today is elevated. At her initial visit, blood pressure and heart rate were similarly elevated. She states that she is not aware of this and attributes this to coming in from work and her driving here in not so good whether. She states that she actually did not take Adderall today. ROS Const Constitutional: No body ache, chills, excessive sweating, fatigue, fever(s), frequent falls, headache(s), snoring, weakness, sleep problems or change in appetite Eyes Eyes: No blurry vision, change in vision, bulging eyes, floaters, eye pain or Light sensitivity ENT ENT: No abnormal hearing, ear or mastoid pain, tinnitus, balance problems, nosebleed/epistaxis, nasal congestion, headache(s), neck pain or sore throat Resp Respiratory: No cough, excessive phlegm production, pain on inspiration, shortness of breath, snoring or wheezing Cardio Cardiology: No chest pain at rest, chest pain with exertion, excessive sweating, shortness of breath, dyspnea on exertion, lightheadedness, orthopnea or palpitations Gastro GI: No abdominal pain, change in bowel habits, constipation, cramping, diarrhea, nausea/dyspepsia or vomiting Genitourinary-Female: No burning urination, painful urination, urinary incontinence, urinary frequency, suprapubic fullness, side pain, abnormal vaginal bleeding or pelvic pain Musc Musculoskeletal: No abnormal gait, joint pain, back pain, limited range of motion, loss of height, muscle cramps, neck pain or numbness Skin Skin: No dry skin, redness, excessive hair growth, yellowing of the eye, lesions, itchy eyes, rash or wounds Neuro Neurology: No abnormal gait, abnormal hearing, behavioral changes, unsteady gait/balance, weakness, frequent falls, headache(s), memory loss or numbness Psych Psychiatric: No anxiety, No behavioral changes, No change in appetite, No depression, No memory loss and No Thoughts of harming yourself/Others Endo Endocrine: No cold intolerance, excessive sweating, fatigue, flushing, heat intolerance, increased thirst/drinking or increased (more content not included)... Normal [facility] SCRN MAMM (CAD)W/JAIR BILATo n 03-09-2024 SCRN MAMM (CAD)W/JAIR BILAT [facility] Imaging Services [address] [place], [place] [address] SCRN MAMM (CAD)W/JAIR BILAT MR#: [id number] Acct: [id number] Name: KIRA HOYT Rep #: [id number] : 1980 F 43 From: Zachery phillip MD PCP: Dr. Rolo Feliciano MD Status: [facility] Study: SCRN MAMM (CAD)W/JAIR BILAT Date of Exam: 02/24 06/18 Exam# [id number] Ordering Dr: Rolo Feliciano MD [id number] MAMMOGRAPHY - BILATERAL SCREENING REASON FOR EXAM: Female, 43 years old. Routine annual screening examination. PERTINENT HISTORY: Non-contributory. TECHNIQUE: Digital bilateral breast jair (3D mammographic acquisition) in the CC and MLO projections. 2-D mediolateral oblique (MLO) and craniocaudad (CC) views of both breasts were obtained. CAD: Full Field Digital Mammography with Computer Added Detection was performed. COMPARISON: Comparison is made with prior outside examination dated September 17, 2021. FINDINGS: Breast Composition: There are scattered areas of fibroglandular density. These 7.8 mm x 8.5 mm possible nodular density in the central aspect of the left breast as seen on the craniocaudad projection. The patient will be recalled for additional views including 90 degree lateral view as well as compression spot views of the left breast. No other significant abnormalities are identified. BI/SCRN MAMM (CAD)W/JAIR BILAT IMPRESSION: Possible 7.8 mm x 8.5 mm nodular density in the central aspect of the left breast as seen on the craniocaudad projection. The patient will be recalled for additional views. Recall Side: Left Breast ASSESSMENT CATEGORY: BIRADS Category 0: Incomplete. Need additional imaging evaluation. A letter regarding these results will be sent to the patient by the facility within 30 days. Approximately 10% of breast cancers are not detected by mammography. A normal mammogram should not delay biopsy of a clinically suspicious abnormality. [id number] Electronically Signed: Zachery Meek MD at 11:00 EST , CC: Dr. Rolo Feliciano MD Perforating Machine Operator: Signed [facility] EDYTAon 03-28-2023 [facility] Office Visit (FAMPWS ) KIRA HOYT ([id number]) 1980 F Date Time Provider Department 03/28/23 3:20 PM GODFREY WALSH FAMPWS During your visit today, we recorded the following information about you: Pulse Blood pressure Weight 95/minute 138/72 88.5 kg Godfrey Walsh MD 03/28/2023 4:12 PM Signed Patient presents with: Physical HPI: Patient presents today for office visit for re establishing. Had to change last time due to lack of insurance./wellness check. ADD: Current Treatment: adderall Feels treatment is working well: Yes. Weight loss: No. Insomnia: No. GASTROENTEROLOGY complaints: No. Tremor: No. Mood disorder: No. Chest pain/Palpitations: No. Aware of risks associated with controlled substance use: Yes. Hx of misuse/abuse/diversio n of meds: No. Had tox screen done in September reviewing records. Oarrs done. MEDICATIONS: Current Outpatient Medications Medication Sig amphetamine-dextroamp hetamine XR (ADDERALL XR) 5 mg capsule Take 1 capsule by mouth once daily for 30 days. Do not start before March 04, 2023. amphetamine-dextroamp hetamine XR (ADDERALL XR) 30 mg capsule Take 1 capsule by mouth once daily for 30 days. Do not start before March 04, 2023. levonorgestrel (MIRENA) 20 mcg/24 hours (5 yrs) 52 mg IUD 1 Each by INTRAUTERINE route as directed. No current facility-administered medications for this visit. ALLERGIES: ALLERGIES Allergen Reactions Cat Hair Extract nasal congestion Cotton nasal congestion Dust nasal congestion Mold nasal congestion PAST MEDICAL HISTORY Diagnosis Date ADD (attention deficit disorder) Adjustment disorder with depressed mood Deep vein thromb-postpar PAST SURGICAL HISTORY Procedure Laterality Date APPENDECTOMY 97 DILATION AND CURETTAGE DXAND/THER NONOBSTETRIC 97 Dilation AND curettage-mirena IUD -97 INSERTION OF IUD 02/22/2015, 10/28/2019 FAMILY HISTORY Problem Relation Age of Onset Colon Cancer Maternal Grandfather Heart Paternal Grandfather [place] Diabetes Paternal Aunt Social History Tobacco Use Smoking status: Some Days Types: Cigarettes Smokeless tobacco: Never Vaping Use Vaping Use: Never used Substance Use Topics Alcohol use: Yes Comment: Social Drug use: No Reviewed current medications, allergies, past medical history, surgical history, family history and social history today. REVIEW OF SYSTEMS Has oncychomycosis. No no chest pain or shortness of breath. No gi or gu issues. Getting skin check per derm soon. All other reviewed and negative other than HPI. HEALTH MAINTENANCE: Reviewed health maintenance issues today and recommended the following in detail. Hepatitis C Screening done. Mammogram Screening due on 09/17/2022 Depression Assessment due on 02/24/2023 VITALS: BP 138/72 Pulse 95 Wt 88.5 kg (195 lb) LMP 10/15/2004 SpO2 98% BMI 31.96 kg/m? Last 4 Encounter Wt Readings: Date: Wt: 03/28/2023 88.5 kg (195 lb) 09/24/2022 89.1 kg (196 lb 6.4 oz) 03/12/2022 94.3 kg (207 lb 12.8 oz) 11/19/2021 91.4 kg (201 lb 6.4 oz) PHYSICAL EXAMINATION: General appearance: Well appearing, alert, in no acute distress, well-hydrated, well nourished. Skin: Skin color, texture, turgor normal, no suspicious rashes or lesions Head: Normocephalic, no masses, lesions, tenderness or abnormalities Lungs: Lungs clear to auscultation. No wheezing, rhonchi, rales Heart: RRR without murmur, gallop, or rubs. No ectopy Abdomen: Normal abdominal exam, Abdomen soft, non-tender. Bowel sounds normal. No masses, organomegaly Extremities: No deformities, edema, skin discoloration, clubbing or cyanosis. Good capillary refill. ASSESSMENT/PLAN: Well check. 2. Attention deficit disorder, unspecified hyperactivity presence - ICD9: 314.00, ICD10: F98.8 (primary diagnosis) - Controlled prescriptions were written during the office visit. Sequential fill dates were listed on each. Patient is instructed that no additional scripts will be written until their next follow up visit. - DEPRESSION SCREENING/ASSESSMENT - DEXTROAMPHETAMINE-AMP HETAMINE 30 MG TABLET - DEXTROAMPHETAMINE-AMP HETAMINE 30 MG TABLET - DEXTROAMPHETAMINE-AMP HETAMINE 30 MG TABLET - DEXTROAMPHETAMINE-AMP HETAMINE 5 MG TABLET - DEXTROAMPHETAMINE-AMP HETAMINE 5 MG TABLET - DEXTROAMPHETAMINE-AMP HETAMINE 5 MG TABLET 3. Screening breast examination - ICD9: V76.10, ICD10: Z12.39 - Follow up for annual exam in one year. - RUBEN SCREENING W JAIR 4. Onychomycosis - see podiatry. Has failed otc tx. Godfrey Walsh MD Referring Provider: SELF [200] Allergies As of Date: 03/28/2023 Noted Allergy Reaction CAT HAIR EXTRACT 12/04/2004 Comments: nasal congestion COTTON 12/04/2004 Comments: nasal congestion DUST 12/04/2004 Comments: nasal congestion MOLD 12/04/2004 Comments: nasal congestion Date Reviewed: (more content not included)... [facility] CNPNon 01-07-2023 CNPN Telephone (FAMAAR) KIRA HOYT ([id number]) 1980 F Date Time Provider [facility]/07[facility] During your visit today, we recorded the following information about you: Morena Luna MD 01/07/2023 9:18 AM Signed ----- Message from Genesis Bailey MA sent at 01/07/2023 8:59 AM EST ----- Good morning Dr Lemus, I received a prior auth request for attached patient for Adderall 30mg. I saw that the Adderall 5mg is still in her med list. Is the plan to keep her on both or to switch to the 30mg? Just wanted some clarification for this prior auth. Thank you!! Morena Luna MD 01/07/2023 9:19 AM Signed She is taking both the 30 and 5 mg. Allergies As of Date: 01/07/2023 Noted Allergy Reaction CAT HAIR EXTRACT 12/04/2004 Comments: nasal congestion COTTON 12/04/2004 Comments: nasal congestion DUST 12/04/2004 Comments: nasal congestion MOLD 12/04/2004 Comments: nasal congestion Date Reviewed: 09/24/2022 Reviewed by: Morena Luna MD - Fully Assessed Prescriptions as of 01/07/2023 - amphetamine-dextroamp hetamine XR (ADDERALL XR) 5 mg capsule Take 1 capsule by mouth once daily for 30 days. - amphetamine-dextroamp hetamine XR (ADDERALL XR) 5 mg capsule Take 1 capsule by mouth once daily for 30 days. Do not start before February 02, 2023. - amphetamine-dextroamp hetamine XR (ADDERALL XR) 5 mg capsule Take 1 capsule by mouth once daily for 30 days. Do not start before March 04, 2023. - amphetamine-dextroamp hetamine XR (ADDERALL XR) 30 mg capsule Take 1 capsule by mouth once daily for 30 days. - amphetamine-dextroamp hetamine XR (ADDERALL XR) 30 mg capsule Take 1 capsule by mouth once daily for 30 days. Do not start before February 02, 2023. - amphetamine-dextroamp hetamine XR (ADDERALL XR) 30 mg capsule Take 1 capsule by mouth once daily for 30 days. Do not start before March 04, 2023. - levonorgestrel (MIRENA) 20 mcg/24 hours (5 yrs) 52 mg IUD 1 Each by INTRAUTERINE route as directed. Problem List As Of Date 01/07/2023 Noted Resolved Cyst of right lower eyelid [H02.822] 01/23/2015 11/19/2021 Eyelid lesion [H02.9] 01/30/2015 11/19/2021 Vitreous floaters of both eyes [H43.393] 03/06/2015 ADD (attention deficit disorder) [F98.8] 10/10/2016 Obesity, Class I, BMI 30-34.9 [E66.9] 03/12/2022 Encounter Status:Closed by MORENA LUNA on 01/07/23 [facility] CNPN Telephone (FAMAAR) KIRA HOYT ([id number]) 1980 F Date Time Provider Department 01/07/23 MORENA LUNA FAMAAR During your visit today, we recorded the following information about you: Genesis Bailey MA 01/07/2023 9:45 AM Signed PENDING, Amphetamine-Dextroamp het ER 30MG er capsules Kahn: [id number] Cover My Meds Genesis Bailey MA January 07, 2023 9:44 AM Genesis Bailey MA 01/14/2023 1:31 PM Signed APPROVED, Amphetamine-Dextroamp het ER 30MG er capsules Authorized from 01/08/2023 through 01/09/2024 Genesis Bailey MA January 14, 2023 1:31 PM Allergies As of Date: 01/07/2023 Noted Allergy Reaction CAT HAIR EXTRACT 12/04/2004 Comments: nasal congestion COTTON 12/04/2004 Comments: nasal congestion DUST 12/04/2004 Comments: nasal congestion MOLD 12/04/2004 Comments: nasal congestion Date Reviewed: 09/24/2022 Reviewed by: Morena Luna MD - Fully Assessed Reason for Visit: APPROVED,?Amphetamine -Dextroamphet ER 30MG er capsules [Other] Prescriptions as of 01/14/2023 - amphetamine-dextroamp hetamine XR (ADDERALL XR) 5 mg capsule Take 1 capsule by mouth once daily for 30 days. - amphetamine-dextroamp hetamine XR (ADDERALL XR) 5 mg capsule Take 1 capsule by mouth once daily for 30 days. Do not start before February 02, 2023. - amphetamine-dextroamp hetamine XR (ADDERALL XR) 5 mg capsule Take 1 capsule by mouth once daily for 30 days. Do not start before March 04, 2023. - amphetamine-dextroamp hetamine XR (ADDERALL XR) 30 mg capsule Take 1 capsule by mouth once daily for 30 days. - amphetamine-dextroamp hetamine XR (ADDERALL XR) 30 mg capsule Take 1 capsule by mouth once daily for 30 days. Do not start before February 02, 2023. - amphetamine-dextroamp hetamine XR (ADDERALL XR) 30 mg capsule Take 1 capsule by mouth once daily for 30 days. Do not start before March 04, 2023. - levonorgestrel (MIRENA) 20 mcg/24 hours (5 yrs) 52 mg IUD 1 Each by INTRAUTERINE route as directed. Problem List As Of Date 01/07/2023 Noted Resolved Cyst of right lower eyelid [H02.822] 01/23/2015 11/19/2021 Eyelid lesion [H02.9] 01/30/2015 11/19/2021 Vitreous floaters of both eyes [H43.393] 03/06/2015 ADD (attention deficit disorder) [F98.8] 10/10/2016 Obesity, Class I, BMI 30-34.9 [E66.9] 03/12/2022 Encounter Status:Closed by GENESIS [facility]AILEY [facility]14/23 [facility] Telephone (FAMAAR) KIRA HOYT ([id number]) 1980 F Date Time Provider Department 10/29/22 [facility] During your visit today, we recorded the following information about you: Genesis Bailey MA 10/29/2022 7:21 AM Signed PENDING, amphetamine-dextroamp hetamine XR (ADDERALL XR) 5 AND 30 mg capsule AND [id number] Epic Genesis Bailey MA 10/29/2022 10:12 AM Signed APPROVED, amphetamine-dextroamp hetamine XR (ADDERALL XR) 5 AND 30 mg capsule Authorized from October 29, 2022 to October 30, 2023 *patient notified by Allergies As of Date: 10/29/2022 Noted Allergy Reaction CAT HAIR EXTRACT 12/04/2004 Comments: nasal congestion COTTON 12/04/2004 Comments: nasal congestion DUST 12/04/2004 Comments: nasal congestion MOLD 12/04/2004 Comments: nasal congestion Date Reviewed: 09/24/2022 Reviewed by: Morena Luna MD - Fully Assessed Reason for Visit: APPROVED, amphetamine-dextroamp hetamine XR?5 AND?30 mg [Other] Prescriptions as of 10/29/2022 - amphetamine-dextroamp hetamine XR (ADDERALL XR) 30 mg capsule Take 1 capsule by mouth once daily for 30 days. - dextroamphetamine-amp hetamine (ADDERALL) 5 mg tablet Take 1 tablet by mouth once daily for 30 days. - levonorgestrel (MIRENA) 20 mcg/24 hours (5 yrs) 52 mg IUD 1 Each by INTRAUTERINE route as directed. Problem List As Of Date 10/29/2022 Noted Resolved Cyst of right lower eyelid [H02.822] 01/23/2015 11/19/2021 Eyelid lesion [H02.9] 01/30/2015 11/19/2021 Vitreous floaters of both eyes [H43.393] 03/06/2015 ADD (attention deficit disorder) [F98.8] 10/10/2016 Obesity, Class I, BMI 30-34.9 [E66.9] 03/12/2022 Encounter Status:Closed by GENESIS BAILEY on 10/29/22 [facility] CNOVon 09-24-2022 CNOV Office Visit (FAMAAR ) KIRA HOYT ([id number]) 1980 F Date Time Provider Department 09/24/22 2:00 PM MORENA LUNA During your visit today, we recorded the following information about you: Temperature Pulse Respiration Blood pressure 98.2 degrees 88/minute 18/minute 128/84 Weight Height 89.1 kg 1.664 m Morena Luna MD 09/24/2022 2:40 PM Signed Office follow up note: 41 year old female, presents today for follow up visit. Patient reports being compliant with medication(s) and no adverse reactions to medication(s). ADD stable. On adderral Able to function Normal appetite Sleeping well PDMD report reviewed. ALLERGIES Allergen Reactions Cat Hair Extract nasal congestion Cotton nasal congestion Dust nasal congestion Mold nasal congestion Current Outpatient Medications Medication Sig amphetamine-dextroamp hetamine XR (ADDERALL XR) 30 mg biphasic capsule Take 1 capsule by mouth once daily for 30 days. dextroamphetamine-amp hetamine (ADDERALL) 5 mg tablet Take 1 tablet by mouth once daily for 30 days. levonorgestrel (MIRENA) 20 mcg/24 hours (5 yrs) 52 mg IUD 1 Each by INTRAUTERINE route as directed. No current facility-administered medications for this visit. PAST MEDICAL HISTORY Diagnosis Date ADD (attention deficit disorder) Adjustment disorder with depressed mood Deep vein thromb-postpar PAST SURGICAL HISTORY Procedure Laterality Date APPENDECTOMY 97 DILATION AND CURETTAGE DXAND/THER NONOBSTETRIC 97 Dilation AND curettage-mirena IUD -97 INSERTION OF IUD 02/22/2015, 10/28/2019 FAMILY HISTORY Problem Relation Age of Onset Colon Cancer Maternal Grandfather Heart Paternal Grandfather [place] Diabetes Paternal Aunt Social History Tobacco Use Smoking status: Some Days Types: Cigarettes Smokeless tobacco: Never Vaping Use Vaping Use: Never used Substance Use Topics Alcohol use: Yes Comment: Social Drug use: No REVIEW OF SYSTEMS: GENERAL: Negative for malaise, significant weight loss, night sweats and fever HEENT: No changes in hearing or vision. No sinus pain or pressure, No trouble swallowing RESPIRATORY: Negative for cough, wheezing and shortness of breath CADIOVASCULAR: Negative for chest pain, leg swelling, palpitations, orthopnea GI: Negative for abdominal discomfort, hematochezia, melena, hematemesis, change in bowel habits, diarrhea, constipation, nausea or vomiting. : Negative for dysuria, frequency and incontinence MUSCULOSKELETAL: Negative for joint pain or swelling and muscle pain. HEMATOLOGY Negative for prolonged bleeding, bruising easily, and swollen nodes. ENDOCRINE: Negative for cold or heat intolerance, polyuria, polydipsia and goiter. NEURO: Negative for lightheadedness, dizziness, tremor, gait imbalance, syncope and seizures. PHYSICAL EXAM: VITALS: Blood pressure 128/84, pulse 88, temperature 36.8 ?C (98.2 ?F), temperature source Oral, resp. rate 18, height 166.4 cm (5' 5.5), weight 89.1 kg (196 lb 6.4 oz), last menstrual period 10/15/2004, SpO2 98 %., Body mass index is 32.19 kg/m?. GENERAL: Healthy, alert, no distress, cooperative SKIN: Skin color, texture, turgor normal. No rashes or lesions. HEENT: PERRL, EOMI, and normal dentition CARDIAC: Normal S1 and S2; no rubs, murmurs, or gallops LUNGS: Lungs clear to auscultation, Good diaphragmatic excursion ABDOMEN: Non distended, positive bowel sounds all 4 quadrants, soft non-tender, no organomegaly EXTREMITIES: Extremities normal, no deformities, edema, clubbing or skin discoloration. Good capillary refill., No ulcers NEURO: Gait normal. Reflexes normal and symmetric. Sensation grossly intact, Cranial nerves II-XII intact PULSES: 2+ radial LAB RESULTS: Results for orders placed or performed in visit on 08/13/21 CBC + DIFF Result Value Ref Range WBC 6.59 3.70 - 11.00 k/uL RBC 4.25 3.90 - 5.20 m/uL Hemoglobin 13.9 11.5 - 15.5 g/dL Hematocrit 41.4 36.0 - 46.0 % MCV 97.4 80.0 - 100.0 fL MCH 32.7 26.0 - 34.0 pg MCHC 33.6 30.5 - 36.0 g/dL RDW-CV 13.0 11.5 - 15.0 % Platelet Count 258 150 - 400 k/uL MPV 9.5 9.0 - 12.7 fL Neutrophils % 60.9 % Abs Neut 4.02 1.45 - 7.50 k/uL Lymphocytes % 28.1 % Abs Lymph 1.85 1.00 - 4.00 k/uL Monocytes % 9.3 % Abs Alpine 0.61 <0.87 k/uL Eosinophils % 0.9 % Abs Eosin 0.06 <0.46 k/uL Basophils % 0.5 % Abs Baso 0.03 <0.11 k/uL Immature Granulocytes % 0.3 % Abs Immature Gran <0.03 <0.10 k/uL NRBC 0.0 /100 WBC Absolute nRBC <0.01 <0.01 k/uL Diff Type Auto COMP METABOLIC PANEL Result Value Ref Range Protein, Total 8.1 (H) 6.3 - 8.0 g/dL Albumin 4.8 3.9 - 4.9 g/dL Calcium, Total 10.2 8.5 - 10.2 mg/dL Bilirubin, Total 0.6 0.2 - 1.3 mg/dL Alkaline Phosphatase 45 34 - 123 U/L AST 36 (H) 13 - 35 U/L ALT 42 (H) 7 - 38 U/L Glucose 106 (H) 74 - 99 mg/dL BUN 9 7 - 21 mg/dL (more content not included)... Normal [facility] TOX SCREEN ROUT URon 023 Amphetamines Confirm (U) [Mass/Vol] Negative Negative [facility] Barbiturates Urine Negative Negative [facility] Benzodiazepines Urine Negative Negative [facility] Cannabinoids, Urine Negative Negative [facility] Cocaine Ql (U) Negative Negative [facility] Opiates Screen Ql (U) Negative Negative [facility] Phencyclidine Ql (U) Negative Negative [facility] Amphetamines Confirm (U) [Mass/Vol] Negative Normal Negative [facility] Comment on above: Order Comment: Speci men Type: URINE SPECIMEN Ordering Facility: [facility] Address: [address] [place] [address] Result Comment: Cuto ff threshold at 1000 ng/mL. Performed By: #### U TOX2 #### [facility] CLIA [id number] [facility] [employer] [address] [place] [address] [place] BARBITURATES, URINE Negative Normal Negative [facility] Comment on above: Order Comment: Speci men Type: URINE SPECIMEN Ordering Facility: [facility] Address: [address] [place], [place] [id number] Result Comment: Cuto ff threshold at 200 ng/mL. Performed By: #### U TOX2 #### [facility] CLIA [id number] [address] [place] [address] [place] BENZODIAZEPINES, UR Negative Normal Negative [facility] Comment on above: Order Comment: Speci men Type: URINE SPECIMEN Ordering Facility: [facility] Address: [address] [place] [address] Result Comment: Cuto ff threshold at 200 ng/mL. Performed By: #### U TOX2 #### [facility] CLIA [id number] [address] [place] [address] [place] CANNABINOIDS,URINE Negative Normal Negative [facility] Comment on above: Order Comment: Speci men Type: URINE SPECIMEN Ordering Facility: [facility] Address: [address] [place] [address] Result Comment: Cuto ff threshold at 50 ng/mL. Performed By: #### U TOX2 #### [facility] CLIA [id number] [address] [place] [address] [place] Cocaine Ql (U) Negative Normal Negative [facility] Comment on above: Order Comment: Speci men Type: URINE SPECIMEN Ordering Facility: [facility] Address: [address] [place] [address] Result Comment: Cuto ff threshold at 300 ng/mL. Performed By: #### U TOX2 #### [facility] CLIA [id number] [address] [place] [address] [place] Opiates Screen Ql (U) Negative Normal Negative [facility] Comment on above: Order Comment: Speci men Type: URINE SPECIMEN Ordering Facility: [facility] Address: [address] [place] [address] Result Comment: Cuto ff threshold at 300 ng/mL. Performed By: #### U TOX2 #### [facility] CLIA [id number] [address] [place] [address] [place] Phencyclidine Ql (U) Negative Normal Negative [facility] Comment on above: Order Comment: Speci men Type: URINE SPECIMEN Ordering Facility: [facility] Address: [address], [place] [address] Result Comment: Cuto ff threshold at 25 ng/mL. Performed By: #### U TOX2 #### [facility] CLIA [id number] [address] [place] [address] [place] CNOVon 03-12-2022 CNOV Office Visit (FAMAAR ) KIRA HOYT ([id number]) 1980 F Date Time Provider Department 03/12/22 9:00 AM MORENA LUNA During your visit today, we recorded the following information about you: Temperature Pulse Respiration Blood pressure 97 degrees 95/minute 18/minute 144/88 Weight Height 94.3 kg 1.664 m Morena Luna MD 03/12/2022 8:51 AM Signed Office follow up note: 41 year old female, presents today for follow up visit. Patient reports being compliant with medication(s) and no adverse reactions to medication(s). ADHD on adderrall Stable Doing well Able to focus Sleeping well. Body mass index is 34.05 kg/m?. Occasional smoking Go to the gym 3 days a week. ALLERGIES Allergen Reactions Cat Hair Extract nasal congestion Cotton nasal congestion Dust nasal congestion Mold nasal congestion Current Outpatient Medications Medication Sig dextroamphetamine-amp hetamine (ADDERALL) 5 mg tablet Take 1 tablet by mouth once daily. amphetamine-dextroamp hetamine XR (ADDERALL XR) 30 mg 24 hr capsule Take 30 mg by mouth once daily. levonorgestrel (MIRENA) 20 mcg/24 hours (5 yrs) 52 mg IUD 1 Each by INTRAUTERINE route as directed. No current facility-administered medications for this visit. PAST MEDICAL HISTORY Diagnosis Date ADD (attention deficit disorder) Adjustment disorder with depressed mood Deep vein thromb-postpar PAST SURGICAL HISTORY Procedure Laterality Date APPENDECTOMY 97 DILATION AND CURETTAGE DXAND/THER NONOBSTETRIC 97 Dilation AND curettage-mirena IUD -97 INSERTION OF IUD 02/22/2015, 10/28/2019 FAMILY HISTORY Problem Relation Age of Onset Colon Cancer Maternal Grandfather Heart Paternal Grandfather [place] Diabetes Paternal Aunt REVIEW OF SYSTEMS: HEENT: No changes in hearing or vision. No sinus pain or pressure, No trouble swallowing RESPIRATORY: Negative for cough, wheezing and shortness of breath CADIOVASCULAR: Negative for chest pain, leg swelling, palpitations, orthopnea GI: Negative for abdominal discomfort, hematochezia, melena, hematemesis, change in bowel habits, diarrhea, constipation, nausea or vomiting. : Negative for dysuria, frequency and incontinence MUSCULOSKELETAL: Negative for joint pain or swelling and muscle pain. HEMATOLOGY Negative for prolonged bleeding, bruising easily, and swollen nodes. ENDOCRINE: Negative for cold or heat intolerance, polyuria, polydipsia and goiter. NEURO: Negative for lightheadedness, dizziness, tremor, gait imbalance, syncope and seizures. PHYSICAL EXAM: VITALS: Blood pressure 144/88, pulse 95, temperature 36.1 ?C (97 ?F), temperature source Temporal, resp. rate 18, height 166.4 cm (5' 5.5), weight 94.3 kg (207 lb 12.8 oz), last menstrual period 10/15/2004, SpO2 99 %., Body mass index is 34.05 kg/m?. GENERAL: Healthy, alert, no distress, cooperative SKIN: Skin color, texture, turgor normal. No rashes or lesions. HEENT: PERRL, EOMI, and normal dentition CARDIAC: Normal S1 and S2; no rubs, murmurs, or gallops LUNGS: Lungs clear to auscultation, Good diaphragmatic excursion ABDOMEN: Non distended, positive bowel sounds all 4 quadrants, soft non-tender, no organomegaly EXTREMITIES: Extremities normal, no deformities, edema, clubbing or skin discoloration. Good capillary refill., No ulcers NEURO: Gait normal. Reflexes normal and symmetric. Sensation grossly intact, Cranial nerves II-XII intact PULSES: 2+ radial LAB RESULTS: Results for orders placed or performed in visit on 08/13/21 CBC + DIFF Result Value Ref Range WBC 6.59 3.70 - 11.00 k/uL RBC 4.25 3.90 - 5.20 m/uL Hemoglobin 13.9 11.5 - 15.5 g/dL Hematocrit 41.4 36.0 - 46.0 % MCV 97.4 80.0 - 100.0 fL MCH 32.7 26.0 - 34.0 pg MCHC 33.6 30.5 - 36.0 g/dL RDW-CV 13.0 11.5 - 15.0 % Platelet Count 258 150 - 400 k/uL MPV 9.5 9.0 - 12.7 fL Neut% 60.9 % Abs Neut 4.02 1.45 - 7.50 k/uL Lymph% 28.1 % Abs Lymph 1.85 1.00 - 4.00 k/uL Alpine% 9.3 % Abs Alpine 0.61 <0.87 k/uL Eosin% 0.9 % Abs Eosin 0.06 <0.46 k/uL Baso% 0.5 % Abs Baso 0.03 <0.11 k/uL Immature Gran % 0.3 % Abs Immature Gran <0.03 <0.10 k/uL NRBC 0.0 /100 WBC Absolute nRBC <0.01 <0.01 k/uL Diff Type Auto COMP METABOLIC PANEL Result Value Ref Range Protein, Total 8.1 (H) 6.3 - 8.0 g/dL Albumin 4.8 3.9 - 4.9 g/dL Calcium, Total 10.2 8.5 - 10.2 mg/dL Bilirubin, Total 0.6 0.2 - 1.3 mg/dL Alkaline Phosphatase 45 34 - 123 U/L AST 36 (H) 13 - 35 U/L ALT 42 (H) 7 - 38 U/L Glucose 106 (H) 74 - 99 mg/dL BUN 9 7 - 21 mg/dL Creatinine 0.68 0.58 - 0.96 mg/dL Sodium 135 (L) 136 - 144 mmol/L Potassium 3.7 3.7 - 5.1 mmol/L Chloride 97 97 - 105 mmol/L CO2 24 22 - 30 mmol/L Anion Gap 14 9 - 18 mmol/L Estimated Glomerular Filtration Rate 112 >=60 mL/min/1.73m? LIPID PANEL BASIC Result Value Ref Range Cholesterol, Total 233 (more content not included)... Normal [facility] RUBEN SCREENINGon 09-17-2021 [facility] CYTOLOGY DIRECTOR CARDIOLOGY, CONVERTEDon [facility] Vital Signs Date Time Vital Sign Value Performing Clinician Murtaza riley 12-07-2024 10:08-0400 Body height 170.[address] Rolo Feliciano MD Work Phone: [facility] 12-07-2024 10:08-0400 Body mass index (BMI) [Ratio] 30.7 kg/m2 Dr. Rolo Feliciano MD Work Phone: [facility] 12-07-2024 10:08-0400 Body temperature 97.8 [degF] Dr. Rolo Feliciano MD Work Phone: [facility] 12-07-2024 10:08-0400 Body weight 89.[address] Rolo Feliciano MD Work Phone: [facility] 12-07-2024 10:08-0400 Diastolic blood pressure 70 mm[Hg] Dr. Rolo Feliciano MD Work Phone: [facility] 12-07-2024 10:08-0400 Heart rate 96 /min Dr. Rolo Feliciano MD Work Phone: [facility] 12-07-2024 10:08-0400 Respiratory rate 16 /min Dr. Rolo Feliciano MD Work Phone: [facility] 12-07-2024 10:08-0400 SaO2% (BldA) [Mass fraction] 98 % Dr. Rolo Feliciano MD Work Phone: [facility] 12-07-2024 10:08-0400 Systolic blood pressure 124 mm[Hg] Dr. Rolo Feliciano MD Work Phone: [facility] 08-31-2024 11:30-0400 Diastolic blood pressure 78 mm[Hg] Dr. Rolo Feliciano MD Work Phone: [facility] 08-31-2024 11:30-0400 Heart rate 93 /min Dr. Rolo Feliciano MD Work Phone: [facility] 08-31-2024 11:30-0400 SaO2% (BldA) [Mass fraction] 98 % Dr. Rolo Feliciano MD Work Phone: [facility] 08-31-2024 11:30-0400 Systolic blood pressure 128 mm[Hg] Dr. Rolo Feliciano MD Work Phone: [facility] 08-31-2024 10:13-0400 Body height 170.[address] Rolo Fleiciano MD Work Phone: [facility] 08-31-2024 10:13-0400 Body mass index (BMI) [Ratio] 30.5 kg/m2 Dr. Rolo Feliciano MD Work Phone: [facility] 08-31-2024 10:13-0400 Body weight 88.[address] Rolo Feliciano MD Work Phone: [facility] 08-31-2024 10:13-0400 Diastolic blood pressure 76 mm[Hg] Dr. Rolo Feliciano MD Work Phone: [facility] 08-31-2024 10:13-0400 Heart rate 75 /min Dr. Rolo Felicaino MD Work Phone: [facility] 08-31-2024 10:13-0400 Respiratory rate 16 /min Dr. Rolo Feliciano MD Work Phone: [facility] 08-31-2024 10:13-0400 SaO2% (BldA) [Mass fraction] 99 % Dr. Rloo Feliciano MD Work Phone: [facility] 08-31-2024 10:13-0400 Systolic blood pressure 122 mm[Hg] Dr. Rolo Feliciano MD Work Phone: [facility] 06-02-2024 07:23-0400 Body height 170.[address] Rolo Feliciano MD Work Phone: [facility] 06-02-2024 07:19-0400 Body mass index (BMI) [Ratio] 31.3 kg/m2 Dr. Rolo Feliciano MD Work Phone: [facility] 06-02-2024 07:19-0400 Body weight 90.[address] Rolo Feliciano MD Work Phone: [facility] 06-02-2024 07:19-0400 Diastolic blood pressure 78 mm[Hg] Dr. Rolo Feliciano MD Work Phone: [facility] 06-02-2024 07:19-0400 Systolic blood pressure 119 mm[Hg] Dr. Rolo Feliciano MD Work Phone: [facility] 05-25-2024 13:51-0400 Body mass index (BMI) [Ratio] 30.8 kg/m2 Dr. Rolo Feliciano MD Work Phone: [facility] 05-25-2024 13:51-0400 Body temperature 97.6 [degF] Dr. Rolo Feliciano MD Work Phone: [facility] 05-25-2024 13:51-0400 Body weight 89.[address] Rolo Feliciano MD Work Phone: [facility] 05-25-2024 13:51-0400 Diastolic blood pressure 80 mm[Hg] Dr. Rolo Feliciano MD Work Phone: [facility] 05-25-2024 13:51-0400 Heart rate 107 /min Dr. Rolo Feliciano MD Work Phone: [facility] 05-25-2024 13:51-0400 Respiratory rate 16 /min Dr. Rolo Feliciano MD Work Phone: [facility] [facility] 05-25-2024 13:51-0400 SaO2% (BldA) [Mass fraction] 97 % Dr. Rolo Feliciano MD Work Phone: [facility] 05-25-2024 13:51-0400 Systolic blood pressure 118 mm[Hg] Dr. Rolo Feliciano MD Work Phone: [facility] 04-06-2024 12:15-0500 Body temperature 98.3 [degF] Dr. Rolo Feliciano MD Work Phone: [facility] 04-06-2024 12:15-0500 Diastolic blood pressure 82 mm[Hg] Dr. Rolo Feliciano MD Work Phone: [facility] 04-06-2024 12:15-0500 Heart rate 66 /min Dr. Rolo Feliciano MD Work Phone: [facility] 04-06-2024 12:15-0500 Respiratory rate 16 /min Dr. Rolo Feliciano MD Work Phone: [facility] 04-06-2024 12:15-0500 SaO2% (BldA) [Mass fraction] 100 % Dr. Rolo Feliciano MD Work Phone: [facility] 04-06-2024 12:15-0500 Systolic blood pressure 120 mm[Hg] Dr. Rolo Feliciano MD Work Phone: [facility] 04-06-2024 09:30-0500 Body mass index (BMI) [Ratio] 30.8 kg/m2 Dr. Rolo Feliciano MD Work Phone: [facility] 04-06-2024 09:30-0500 Body weight 89.[address] Rolo Feliciano MD Work Phone: [facility] 03-09-2024 14:14-0500 Body mass index (BMI) [Ratio] 31.3 kg/m2 Dr. Rolo Feliciano MD Work Phone: [facility] 03-09-2024 14:14-0500 Body mass index (BMI) [Ratio] 31 kg/m2 Dr. Rolo Feliciano MD Work Phone: [facility] 03-09-2024 14:14-0500 Body temperature 97.3 [degF] Dr. Rolo Feliciano MD Work Phone: [facility] 03-09-2024 14:14-0500 Body weight 90.[address] Rolo Feliciano MD Work Phone: [facility] 03-09-2024 14:14-0500 Body weight 89.[address] Rloo Feliciano MD Work Phone: [facility] 03-09-2024 14:14-0500 Diastolic blood pressure 94 mm[Hg] Dr. Rolo Feliciano MD Work Phone: [facility] 03-09-2024 14:14-0500 Heart rate 102 /min Dr. Rolo Feliciano MD Work Phone: [facility] 03-09-2024 14:14-0500 Respiratory rate 16 /min Dr. Rolo Feliciano MD Work Phone: [facility] 03-09-2024 14:14-0500 SaO2% (BldA) [Mass fraction] 99 % Dr. Rolo Feliciano MD Work Phone: [facility] 03-09-2024 14:14-0500 Systolic blood pressure 146 mm[Hg] Dr. Rolo Feliciano MD Work Phone: [facility] 03-28-2023 15:29-0500 Body weight 88.45 kg Godfrey Walsh MD Work Phone: [facility] 03-28-2023 15:29-0500 Diastolic blood pressure 72 mm[Hg] Godfrey Walsh MD Work Phone: [facility] 03-28-2023 15:29-0500 Heart rate 95 /min Godfrey Walsh MD Work Phone: [facility] 03-28-2023 15:29-0500 SaO2% (BldA) [Mass fraction] 98 % Godfrey Walsh MD Work Phone: [facility] 03-28-2023 15:29-0500 Systolic blood pressure 138 mm[Hg] Godfrey Walsh MD Work Phone: [facility] 09-24-2022 14:22-0400 Body height 166.4 cm Morena Luna MD Work Phone: [facility] 09-24-2022 14:22-0400 Body temperature 98.2 [degF] Morena Luna MD Work Phone: [facility] 09-24-2022 14:22-0400 Body weight 89.09 kg Morena Luna MD Work Phone: [facility] 09-24-2022 14:22-0400 Diastolic blood pressure 84 mm[Hg] Morena Luna MD Work Phone: [facility] 09-24-2022 14:22-0400 Heart rate 88 /min Morena Luna MD Work Phone: [facility] 09-24-2022 14:22-0400 Respiratory rate 18 /min Morena Luna MD Work Phone: [facility] 09-24-2022 14:22-0400 SaO2% (BldA) [Mass fraction] 98 % Morena Luna MD Work Phone: [facility] 09-24-2022 14:22-0400 Systolic blood pressure 128 mm[Hg] Morena Luna MD Work Phone: [facility] 03-12-2022 08:36-0500 Body height 166.4 cm Morena Luna MD Work Phone: [facility] 03-12-2022 08:36-0500 Body temperature 97 [degF] Morena Luna MD Work Phone: [facility] 03-12-2022 08:36-0500 Body weight 94.26 kg Morena Luna MD Work Phone: [facility] 03-12-2022 08:36-0500 Diastolic blood pressure 88 mm[Hg] Morena Luna MD Work Phone: [facility] 03-12-2022 08:36-0500 Heart rate 95 /min Morena Luna MD Work Phone: [facility] 03-12-2022 08:36-0500 Respiratory rate 18 /min Morena Luna MD Work Phone: [facility] 03-12-2022 08:36-0500 SaO2% (BldA) [Mass fraction] 99 % Morena Luna MD Work Phone: [facility] 03-12-2022 08:36-0500 Systolic blood pressure 144 mm[Hg] Morena Luna MD Work Phone: [facility] 08-13-2021 11:22-0400 Body weight 90.72 kg Godfrey Walsh MD Work Phone: [facility] 08-13-2021 11:22-0400 Diastolic blood pressure 82 mm[Hg] Godfrey Walsh MD Work Phone: [facility] 08-13-2021 11:22-0400 Heart rate 96 /min Godfrey Walsh MD Work Phone: [facility] 08-13-2021 11:22-0400 Systolic blood pressure 132 mm[Hg] Godfrey Walsh MD Work Phone: [facility] Encounters Encounter Date Encounter Type Care Provider Facility Start: 12-07-2024 End: 12-07-[address] Candice Pepe MD -[facility] Work Phone: Start: 12-07-2024 End: 12-07-2024 ambulatory Candice Pepe Facility:[facility] Start: 09-21-2024 End: 09-21-[address] Rolo Feliciano MD Work Phone: -[facility] Start: 09-21-2024 End: 09-21-[address] Candice Pepe MD -Ultrasound [facility] Work Phone: Start: 09-21-2024 End: 09-21-2024 ambulatory Candice Pepe Facility:[facility] Start: 08-31-2024 End: 08-31-[address] Candice Pepe MD -[facility] Work Phone: Start: 08-31-2024 End: 08-31-[address] Rolo Feliciano MD Work Phone: -[facility] Start: 06-02-2024 End: 06-02-[address] Rolo Feliciano MD Work Phone: [facility] Work Phone: Start: 06-02-2024 End: 06-02-2024 Patient encounter procedure Kathy Nowak CNM -Laboratory, Specimen Work Phone: Start: 06-02-2024 Encounter for gynecological examination (general) (routine) without abnormal findings Kathy Nowak [facility] Start: 06-02-2024 End: 06-02-2024 Patient encounter procedure Kathy Nowak CNM -[facility] Start: 06-02-2024 End: 06-02-2024 Patient encounter status Kathy Nowak CNM [facility] Start: 06-02-2024 End: 06-02-2024 ambulatory Kathy Nowak Facility:[facility] Start: 06-02-2024 End: 06-02-2024 ambulatory Kathy Nowak Facility:[facility] Start: 05-25-2024 End: 05-25-2024 Patient encounter procedure Omero JOSEPH -[facility] Work Phone: Start: 05-25-2024 End: 05-25-2024 ambulatory Rolo Feliciano Facility:[facility] Start: 04-23-2024 Encounter for other preprocedural examination Cortez Alcantar [facility] Start: 04-06-2024 ambulatory Rolo Feliciano Facili ty:[facility] Start: 04-06-2024 Non-patient / Non-visit Dr. Cortez Alcantar MD -[facility] Start: 04-06-2024 End: 04-06-2024 Admission to same day surgery center Dr. Cortez Alcantar MD -Endoscopy Work Phone: Start: 04-06-2024 End: 04-06-2024 ambulatory [facility] Facility:[facility] Start: 03-30-2024 End: 03-30-[address] Rolo Feliciano MD -Outpatient Breast Imaging Work Phone: Start: 03-30-2024 End: 03-30-2024 ambulatory [facility] Facility:[facility] Start: 03-11-2024 End: 03-11-[address] Rolo Feliciano MD -[facility] Work Phone: Start: 03-11-2024 End: 03-11-2024 [facility] Start: 03-09-2024 Non-patient / Non-visit Dr. Amor Feliciano MD Work Phone: -[facility] Work Phone: Start: 03-09-2024 [facility] Fac[facility] Start: 03-09-2024 End: 03-09-[address] Rolo Feliciano MD -Outpatient Breast Imaging Work Phone: Start: 03-09-2024 End: 03-09-2024 ambulatory [facility] Facility:[facility] Start: 03-02-2024 End: 03-05-2024 ambulatory Godfrey Walsh MD Work Phone: Internal Medicine [place] [id number] Start: 11-13-[address] Sindhu Feliciano MD Work Phone: [facility] Start: 09-16-2023 End: 09-16-2023 [facility] Godfrey Walsh MD Work Phone: [facility] [place] Comment on above: Attention deficit di sorder, unspecified hyperactivity presence (Primary Dx) Start: 08-19-2023 Get Medical Advice Godfrey Walsh MD Work Phone: [facility] [place] Comment on above: Refill Start: 06-18-2023 End: 06-18-2023 [facility] Godfrey Walsh MD Work Phone: [facility] [place] Comment on above: Attention deficit di sorder, unspecified hyperactivity presence (Primary Dx) Start: 05-01-2023 Refill Morena Luna MD Work Phone: [facility] Comment on above: Refill Request Start: 03-28-2023 End: 03-28-2023 ambulatory GODFREY WALSH Facility:[facility] Start: 03-28-2023 Encounter for genera l adult medical examination without abnormal findings GODFREY WALSH [facility] Start: 03-28-2023 End: 03-28-2023 Patient encounter procedure Godfrey Walsh MD Work Phone: [facility] [place] Comment on above: Well adult exam (Clare jayla Dx); Attention deficit disorder, unspecified hyperactivity presence; Screening breast examination; Onychomycosis Start: 03-28-2023 End: 03-28-2023 Patient encounter status Godfrey Walsh MD Work Phone: [facility] Work Phone: Start: 01-07-2023 Telephone encounter Morena Luna MD Work Phone: [facility] [place] Start: 01-03-2023 End: 01-03-2023 ambulatory MORENA LUNA Facility:[id number] Start: 01-03-2023 End: 01-03-2023 [facility] Morena Luna MD Work Phone: [facility] Comment on above: Attention deficit di sorder, unspecified hyperactivity presence (Primary Dx) Start: 12-03-2022 Refill Morena Luna MD Work Phone: [facility] [place] Comment on above: Refill Request Start: 10-29-2022 Telephone encounter Morena Luna MD Work Phone: [facility] [place] Comment on above: APPROVED, amphetamin e-dextroamphetamine XR 5 & 30 mg Start: 10-25-2022 Refill Morena Luna MD Work Phone: [facility] [place] Comment on above: Refill Request Start: 09-24-2022 End: 09-25-2022 ambulatory MORENA LUNA Facility:[id number] Start: 09-24-2022 End: 09-24-2022 ambulatory MORENA LUNA Facility:[id number] Start: 09-24-2022 End: 09-24-2022 Patient encounter procedure Morena Luna MD Work Phone: [facility] [place] Comment on above: Encounter for screen ing mammogram for breast cancer (Primary Dx); Attention deficit disorder, unspecified hyperactivity presence; Screening for lipid disorders Start: 06-13-2022 End: 06-13-2022 ambulatory MORENA LUNA Facility:[id number] Start: 06-13-2022 End: 06-13-2022 [facility] Morena Luna MD Work Phone: [facility] [place] Comment on above: Attention deficit di sorder, unspecified hyperactivity presence (Primary Dx); Laryngitis Start: 05-17-2022 Refill Morena Luna MD Work Phone: [facility] [place] Comment on above: Refill Request Start: 03-12-2022 End: 03-12-2022 ambulatory MORENA LUNA Facility:[id number] Start: 03-12-2022 End: 03-12-2022 Patient encounter procedure Morena Luna MD Work Phone: [facility] [place] Comment on above: Attention deficit di sorder, unspecified hyperactivity presence (Primary Dx); Obesity, Class I, BMI 30-34.9 Start: 02-07-2022 Refill Godfrey Walsh MD Work Phone: Family [facility] [place] Comment on above: Refill Request Start: 11-27-2021 Telephone encounter Godfrey Walsh MD Work Phone: [facility] [place] Comment on above: Insurance Authorizat ion Start: 09-17-2021 Documentation procedure Mammog renan Coordinator [facility] Start: 09-17-2021 Letter encounter Mammography Coordinator [facility] Start: 09-17-2021 End: 09-17-2021 Subsequent hospital visit by physician Screen Mammo [facility] Comment on above: Screening breast exa mination [Z12.39] Start: 08-14-2021 Telephone encounter Godfrey Walsh MD Work Phone: [facility] [place] Comment on above: Orders (results) Start: 08-13-2021 End: 08-13-2021 Patient encounter procedure Godfrey Walsh MD Work Phone: [facility] [place] Comment on above: Attention deficit di sorder, unspecified hyperactivity presence (Primary Dx); Screening for lipid disorders; Medication monitoring encounter; Screening breast examination Start: 04-19-2008 Documentation procedure [facility] sindhu Padron [facility] Start: 04-19-2008 Historic EMR Ese Croftrobb [facility] Procedures Date Procedure Procedure Detail Performing Clinician Start: 09-21-2024 US scan of thyroid Dr. Rolo Feliciano MD Work Phone: Start: 06-02-2024 Liquid based cervica l cytology screening Dr. Rolo Feliciano MD Work Phone: Comment on above: NEGATIVE FOR INTRAEP ITHELIAL LESION OR MALIGNANCY.THIS SPECIMEN WAS RESCREENED PART OF OUR TIMING MACHINE OPERATOR PROGRAM. This liquid based Th inPrep(R) pap test was screened withthe use of an image guided system. Start: 03-30-[address] Cathie Feliciano MD Work Phone: Start: 03-30-[address] Rolo Feliciano MD Work Phone: Start: 03-09-2024 Screening mammography Catherine Feliciano MD Work Phone: Start: 09-17-2021 End: 09-17-2021 Screening mammography bi 2-view breast inc cad Godfrey Walsh MD Work Phone: Start: 08-13-2021 Lipid 1996 panel - S echo or Plasma Godfrey Walsh MD Work Phone: Start: 01-30-2021 Adult depression scr eening assessment Godfrey Walsh MD Work Phone: Start: 04-05-2019 Mammography Godfrey Saldana MD Work Phone: Start: 04-18-2008 CYTOLOGY DIRECTOR CARDIOLOGY, CONVERTED Ese Payne Plan of Treatment Date Care Activity Detail Author Start: 08-13-2026 Lipid panel Lipid Screening [facility] Start: 12-07-2024 Thyroid stimulating hormone measurement [facility] Start: 12-07-2024 Vitamin B12 measurement [facility] Start: 12-07-2024 Vitamin D, 25-hydrox y measurement [facility] Start: 08-18-2024 HPV TESTING HPV TESTING [facility] Start: 08-18-2024 PAP TEST[address] PAP TESTING [facility] Start: 08-18-2024 Screening for malign ant neoplasm of cervix [facility] Start: 08-13-2024 Diabetes Screening Diabetes Screenin g [facility] Start: 06-02-2024 Liquid based cervica l cytology screening [facility] Start: 04-06-2024 Colonoscopy w/biopsy single/multiple COLONOSCOPY AND BIOPSY [facility] Start: 04-06-2024 Colsc flx w/rmvl of tumor polyp lesion snare tq COLONOSCOPY W/LESION REMOVAL [facility] Start: 04-06-2024 Patient discharge [facility] Start: 11-10-2023 Screening for malign ant neoplasm of colon [facility] Start: 09-16-2023 End: 09-16-2023 [facility] 09/16/2023 9:40 AM EDT [facility] [address] [id number] Godfrey Walsh MD [address] [place] [address] Refill Rx [facility] [place] Comment on above: Refill Rx Start: 06-14-2023 PNEUMOCOCCAL (1 - PCV) PNEUMOCOCCAL (1 - PCV) [facility] Comment on above: Postponed from 11/09 (Declined at this time) Start: 06-14-[address] [facility] Comment on above: Postponed from 11/09 (Declined at this time) Start: 06-14-[address] [facility] Comment on above: Postponed from 11/09 (Declined at this time) Start: 02-23-2023 DEPRESSION ASSESSMENT DEPRESSION ASS ESSMENT [facility] Comment on above: Postponed from 02/24 (Declined at this time) Start: 09-17-[address] [facility] Start: 09-17-2022 Screening for malign ant neoplasm of breast Mammogram Screening [facility] Start: 06-13-2022 End: 04-09-2023 TOX SCREEN ROUT UR TOX SCREEN ROUT UR Lab Routine Attention deficit disorder, unspecified hyperactivity presence Expected: 06/13/2022, Expires: 04/09/2023 [facility] Work Phone: Comment on above: Expected: 06/13/2022 , Expires: 04/09/2023 Start: 03-12-2022 End: 03-12-2023 CBC panel - Blood by Automated count CBC Lab Routine Attention deficit disorder, unspecified hyperactivity presence Obesity, Class I, BMI 30-34.9 Expected: 03/12/2022, Expires: 03/12/2023 [facility] Work Phone: Comment on above: Expected: 03/12/2022 , Expires: 03/12/2023 Start: 03-12-2022 End: 03-12-2023 Comprehensive metabolic 2000 panel - Serum or Plasma COMP METABOLIC PANEL Lab Routine Attention deficit disorder, unspecified hyperactivity presence Obesity, Class I, BMI 30-34.9 Expected: 03/12/2022, Expires: 03/12/2023 [facility] Work Phone: Comment on above: Expected: 03/12/2022 , Expires: 03/12/2023 Start: 03-12-2022 End: 03-12-2023 Lipid 1996 panel - Serum or Plasma LIPID PANEL BASIC Lab Routine Obesity, Class I, BMI 30-34.9 Expected: 03/12/2022, Expires: 03/12/2023 [facility] Work Phone: Comment on above: Expected: 03/12/2022 , Expires: 03/12/2023 Start: 03-12-2022 End: 03-12-2023 Thyrotropin [Units/volume] in Serum or Plasma TSH BLD Lab Routine Obesity, Class I, BMI 30-34.9 Expected: 03/12/2022, Expires: 03/12/2023 [facility] Work Phone: Comment on above: Expected: 03/12/2022 , Expires: 03/12/2023 Start: 03-12-2022 End: 05-12-2022 TOX SCREEN ROUT UR TOX SCREEN ROUT UR Lab Routine Attention deficit disorder, unspecified hyperactivity presence Expected: 03/12/2022, Expires: 05/12/2022 [facility] Work Phone: Comment on above: Expected: 03/12/2022 , Expires: 05/12/2022 Start: 02-24-2022 DEPRESSION ASSESSMENT DEPRESSION ASS ESSMENT [facility] Start: 01-30-2022 Adult depression screening assessment DEPRESSION SCREENING [facility] Start: 10-25-2021 Influenza vaccination [facility] Start: 08-14-2021 End: 08-14-2022 HEP ACUTE PANEL/RNA HEP ACUTE PANEL/RNA Lab Routine Elevated liver enzymes Expected: 08/14/2021, Expires: 08/14/2022 [facility] Work Phone: Comment on above: Expected: 08/14/2021 , Expires: 08/14/2022 Start: 08-14-2021 End: 08-14-2022 Hepatic function 2000 panel - Serum or Plasma HEPATIC FUNCTION PNL Lab Routine Elevated liver enzymes Expected: 08/14/2021, Expires: 08/14/2022 [facility] Work Phone: Comment on above: Expected: 08/14/2021 , Expires: 08/14/2022 Start: 08-13-2021 End: 08-13-2022 CBC W Auto Differential panel - Blood [facility] Work Phone: Comment on above: Expected: 08/13/2021 , Expires: 08/13/2022 Start: 08-13-2021 End: 08-13-2022 Comprehensive metabolic 2000 panel - Serum or Plasma [facility] Work Phone: Comment on above: Expected: 08/13/2021 , Expires: 08/13/2022 Start: 08-13-2021 End: 08-13-2022 Lipid 1996 panel - Serum or Plasma [facility] Work Phone: Comment on above: Expected: 08/13/2021 , Expires: 08/13/2022 Start: 08-13-2021 End: 10-13-2021 TOX SCREEN ROUT UR [facility] Work Phone: Comment on above: Expected: 08/13/2021 , Expires: 10/13/2021 Start: 02-27-2021 COVID-19 VACCINE (4 - Booster for Moderna series) COVID-19 VACCINE (4 - Booster for Moderna series) [facility] Start: 02-24-2021 DEPRESSION ASSESSMENT DEPRESSION ASS ESSMENT [facility] Start: 04-05-[address] [facility] Start: 1997 Pneumococcal vaccination Pneum ococcal Vaccine (1 of 2 - PCV) [facility] Start: [address] [facility] Start: 1996 Anxiety Screening Anxiety Screening [facility] Start: 1996 Depression Screening Depression Scre ening [facility] Start: 1996 HEPATITIS C SCREENING HEPATITIS C SC REENING [facility] Start: 1996 HIV SCREENING HIV SCREENING [facility] Start: 1984 PNEUMOCOCCAL (1 - PCV) PNEUMOCOCCAL (1 - PCV) [facility] Start: 1984 Pneumococcal vaccination Pneum ococcal Vaccine (1 of 2 - PCV) [facility] CBC W Auto Different ial panel - Blood [facility] Comprehensive metabo lic 2000 panel - Serum or Plasma [facility] Cytology report of Cervical or vaginal smear or scraping Cyto stain.thin prep [facility] End: 04-01-2025 DBT Breast - bilateral screening RUBEN SCREENING W JAIR Radiology Routine Encounter for screening mammogram for breast cancer 1 Occurrences starting 03/02/2024 until 04/01/2025 [facility] Work Phone: Comment on above: 1 Occurrences starti ng 03/02/2024 until 04/01/2025 Lipid 1996 panel - S echo or Plasma [facility] End: 10-24-2023 RUBEN SCREENING RUBEN SCREENING Radiology Routine Encounter for screening mammogram for breast cancer 1 Occurrences starting 09/24/2022 until 10/24/2023 [facility] Work Phone: Comment on above: 1 Occurrences starti ng 09/24/2022 until 10/24/2023 End: 04-26-2024 RUBEN SCREENING W JAIR RUBEN SCREENING W JAIR Radiology Routine Screening breast examination 1 Occurrences starting 03/28/2023 until 04/26/2024 [facility] Work Phone: Comment on above: 1 Occurrences starti ng 03/28/2023 until 04/26/2024 Path report.final Dx Spec [facility] Patient referral [facility] Work Phone: End: 09-12-2022 Screening mammography bi 2-view breast inc cad RUBEN SCREENING Radiology Routine Screening breast examination 1 Occurrences starting 08/13/2021 until 09/12/2022 [facility] Work Phone: Comment on above: 1 Occurrences starti ng 08/13/2021 until 09/12/2022 [facility] Immunizations Immunization Date Immunization Notes Care Provider [place] 01-02-2021 COVID-19 vaccine, booster dose (MODERNA) Godfrey Walsh MD Work Phone: [facility] Work Phone: 04-07-2020 COVID-19 vaccine, fu ll dose (MODERNA) Godfrey Walsh MD Work Phone: [facility] 03-07-2020 COVID-19 vaccine, fu ll dose (MODERNA) Godfrey Walsh MD Work Phone: [facility] 12-22-2012 hepatitis B vaccine, adult dosage Godfrey Walsh MD Work Phone: [facility] Work Phone: 07-21-2012 hepatitis B vaccine, adult dosage Godfrey Walsh MD Work Phone: [facility] Work Phone: 06-18-2012 hepatitis B vaccine, adult dosage Godfrey Walsh MD Work Phone: [facility] Work Phone: 12-25-2006 influenza virus vaccine, whole virus Godfrey Walsh MD Work Phone: [facility] Work Phone: 12-25-2006 influenza, injectabl e, quadrivalent, preservative free Dr. Rolo Feliciano MD Work Phone: [facility] Payers Date Payer Category Payer Self-pay 2023 Unknown [id number] 2021 Unknown [id number] 2021 Unknown [id number] 2021 Unknown [id number] 2019 Unknown [employer] P[employer] [id number] 2019-Present [phone] [address] [place] [address] PPO [id number] Unknown [id number] Unknown [id number] Unknown [id number] Unknown [id number] Unknown [id number] Unknown [id number] Unknown [id number] Unknown [id number] Unknown [id number] Unknown [id number] [id number] Unknown [id number] [id number] Unknown [id number] Unknown [id number] Social History Date Type Detail Facility Start: 11-12-2012 End: 08-31-2024 Tobacco smoking status NHIS Occasional tobacco smoker [facility] End: 04-24-2005 History of tobacco use Cigarette Smoker [facility] Start: 11-12-2012 End: 11-19-2021 Tobacco use and exposure Smokeless tobacco non-user [facility] Start: 08-13-2021 End: 03-28-2023 Alcohol intake Current drinker of alcohol (finding) [facility] Start: 01-30-2021 History SDOH Alcohol Frequency 3 [facility] Start: 01-30-2021 History SDOH Alcohol Std Drinks 2 [facility] Start: 01-30-2021 History SDOH Social Connections Shinto 98 [facility] Start: 01-30-2021 History SDOH Social Connections Membership 1 [facility] Start: 01-30-2021 History SDOH Social Connections Living 5 [facility] Start: 01-30-2021 History SDOH Physica l Activity MPS 6 [facility] Start: 1980 Sex Assigned At Female C [facility] Start: 08-03-2021 End: 11-19-2021 Exposure to SARS-CoV-2 (event) Not sure [facility] Start: 09-24-2022 End: 03-28-2023 History of [address] function [facility] Start: 09-24-2022 End: 03-28-2023 Social connection and isolation panel [facility] Do you belong to any clubs or organizations such as tenriism groups, unions, fraternal or athletic groups, or school groups? Yes [facility] Are you now , , , , never or living with a partner? [facility] How often to you hav e a drink containing alcohol? Never [facility] How many standard drinks containing alcohol do you have on a typical day? Patient does not drink [facility] Do you feel stress - tense, restless, nervous, or anxious, or unable to sleep at night because your mind is troubled all the time - these days [OSQ] Not at all [facility] (I/We) worried wheth er (my/our) food would run out before (I/we) got money to buy more. Never true [facility] In the past 12 month s, was there a time when you were not able to pay the mortgage or rent on time? No [facility] Start: 09-24-2022 Alcohol Comment Social [facility] Start: 04-03-2020 Gender identity Identifies as female gender (finding) [facility] tobacco [facility] History of tobacco use Passive smoker [facility] How hard is it for y ou to pay for the very basics like food, housing, medical care, and heating Somewhat hard [facility] Start: 06-02-2024 [facility] Sm[facility] tobacco daily (finding) [facility] Start: 06-08-2024 Sex Female (finding) [facility] Sexual Orientation Heterosexual (finding) [facility] NEGATED: Highlighted row Not [facility] Goals Date Patient Goal Desired Activity /State Mental Status Date Assessment Result Facility 04-06-2024 Cognitive function Voice/Name [facility] Work Phone: Clinical Notes 01-30-2015 to 10-14-2025 Note Date & Type Note Facility 12-07-2024 Progress note [facility] 09-22-2024 Radiology Diagnostic study note [facility] Imaging Services [address] [place], [place] [id number] Thyroid MR#: [id number] Acct: [id number] Name: KIRA HOYT Rep #: [id number] : 1980 F 43 From: Rosemarie Maria MD PCP: Dr. Candice Pepe MD Status: REG CLI Study:Thyroid Date of Exam: 09/21/24 Exam# [id number] Ordering Dr: Candice Pepe MD PROCEDURE: THYROID 09/21/2024 REASON FOR EXAM: ENLARGED THYROID TECHNIQUE: THYROID COMPARISON: None FINDINGS: Right lobe measures 4.8 x 1.7 x 1.6 cm. It is heterogeneous. There is a well-defined isoechoic to thyroid 0.9 x 0.9 x 0.7 cm nodule which scores a TR 3. Given its size, it can be followed sonographically at 1 3 and 5 years. The left lobe measures 5.0 x 1.4 x 1.5 cm, it is homogeneous and contains 2 separate complex solid and cystic nodules, larger measures 1.0 x 1.0 x 0.7 cm, smaller measures 0.7 x 0.5 x 0.6 cm. Both measure TR 3 as well and can be followed sonographically. The isthmus measures 0.2 cm and contains a hypoechoic well-defined 0.4 x 0.4 x 0.3 cm lesion which scores TR 4 and can also be followed sonographically. No hyperemia or suspicious adenopathy noted. US/Thyroid IMPRESSION: Borderline enlarged thyroid gland with bilateral nodules as discussed above. The nodules can be followed sonographically at 1, 3, and 5 year intervals. Reading Location: [id number] CC: Dr. 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: Signed [facility] 08-31-2024 Evaluation note Diagnosis Onset Date Resolution ADHD acute August 31, 2024 9:55am Screening for depression noneactive August 31, 2024 9:55am Immunization due noneactive August 9:55am Establishing care with new doctor, encounter for noneactive August 31, 2024 9:55am IUD (intrauterine device) in place noneactive August 31, 2024 9:55am Enlarged thyroid noneactive August 9:55am Syncopal episodes noneactive August 9:55am ADHD acute December 07, 2024 10:00am Perimenopausal symptoms noneactive O ctober 2024 10:00am Influenza vaccination declined noneactive December 07 10:00am IUD (intrauterine device) in place noneactive December 07, 025 10:00am Enlarged thyroid noneactive December 07, 2024 10:00am Mixed hyperlipidemia noneactive 2024 10:00am Neck pain noneactive December 07, 2024 10:00am [facility] Work Phone: 1(170) 295-206604-09-2025 Evaluation note* Diagnosis Onset Date Resolution Status Admit Date Encounter for routine gynecological examination noneactive June 02, 2024 6:51am ADHD acute August 31, 2024 9:55am Screening for depression noneactive August 31, 2024 9:55am Immunization due noneactive August 9:55am Establishing care with new doctor, encounter for noneactive August 31, 2024 9:55am IUD (intrauterine device) in place noneactive August 31, 2024 9 :55am Enlarged thyroid noneactive August 9:55am Syncopal episodes noneactive August 9:55am [facility] Work Phone: 1(120) 529-626704-01-2025 Evaluation note* Diagnosis Onset Date Resolution Status Admit Date ADHD acute May 25 1:44pm Encounter for routine gynecological examination noneactive June 02, 2024 6:51am ADHD acute August 31, 2024 9:55am Establishing care with new doctor, encounter for noneactive August 31, 2024 9:55am IUD (intrauterine device) in place noneactive August 31, 2024 9 :55am Goiter noneactive August 31, 2024 9:55am [facility] Work Phone: 1(323) 178-877002-11-2025 [facility] Medical Records Department [address] [place] [address] History Physical Exam 04/06/24 1109 MR#: [id number] Acct: [id number] Name: KIRA HOYT Rep #: [id number] : 1980 43 From: Cortez Alcantar MD PCP: Dr. Rolo Feliciano MD Status:[facility] Location: [place] [address] HPI - General General Date of Admission: 04/06/24 Date of Service: 04/06/24 Chief Complaint: Screening colonoscopy HPI Narrative KIRA HOYT, is a 43 F who presents for screening colonoscopy. This will be her first colonoscopy. She denies any GI symptoms or problems. She does have a family history of both colon polyps and colon cancers. It sounds as though her brother who is 2 years older than her recently was found to have multiple polyps. Her mother seems to have polyps every time she has a colonoscopy performed. And her grandfather had colon cancer. [facility] Medical History Marijuana use Alcohol use Syncope Smoker Insomnia Family hx of colon cancer Medication monitoring encounter Colon cancer screening Preventative health care Patellofemoral pain syndrome of both knees ADHD Home Medications ???Medication ???Instructions ???Recorded ???Last Taken ???Type dextroamphetamine-amphetamine 5 mg 1 tab PO QDAY PRN ADHD 11/13/23 Unknown History tablet multivitamin 1 tab PO QAM 03/09/24 03/30/24 His tory dextroamphetamine-amphetamine ER 1 cap PO QDAY 30 days #30 caps 04/05/24 Rx 30 mg 24hr capsule,extend release levonorgestrel (Mirena) 1 device intrauterine DAILY 04/06/24 History Allergy/AdvReac Type Severity Reaction Status Date / Time No Known Allergies Allergy Verified 04/06/24 09:27 Family History Aunt Diabetes Uncle Cancer Alzheimer dementia Grandfather Colon cancer Alzheimer dementia Sister Kidney disease Brother Colon polyps Mother Colon polyps Surgical History Hx of dilation and curettage S/P appendectomy Social History adopted: No household members: significant other number of children: 1 current occupational status: employed current occupation: [employer] pets and animals: Yes (1) pets and animals: dog(s) sexually active: Yes Smoking Status: Current every day smoker (Patient did not smoke today.) Tobacco: How many years used: 20 alcohol intake: current alcohol intake frequency: a few times a week substance use type: marijuana caffeine: No what type of physical activity do you participate in: none do you feel safe at home: Yes Vital Signs Vital Signs Vital Signs: 04/06/24 09:29 04/06/24 09:30 04/06/24 10:20 Temperature 97.1 F L 97.1 F L Temperature Source Temporal Pulse Rate 67 67 Respiratory Rate 18 18 Respiratory Pattern Normal Blood Pressure 123/84 H 123/84 H Blood Pressure Mean 97 Blood Pressure Source Monitor Blood Pressure Position Semi-Fowlers Blood Pressure Location Right Arm Pulse Ox 100 100 Oxygen Delivery Method Room Air Room Air Weight Weight: 197 lb Body Mass Index (BMI) 30.8 Physical Exam Const alert, oriented x3 and no apparent distress Results Lab / Micro Data Labs: Laboratory Results - last 24 hr 04/06/24 09:17: Urine Test Negative Assessment Plan Assessment/Plan (1) Colon cancer screening: PLAN: Plan The patient is a 43-year-old female in need of a screening colonoscopy. She does have a family history of colon polyps and colon cancers. No recent GI symptoms or problems. We discussed the details of the planned procedure and she wishes to proceed. This will begin momentarily Charges/Coding Visit Charges Inpatient E M: 10179 Init Hosp L1 04/06/24 1111 Cosigner Signature (if applicable): CC: Dr. Rolo Feliciano MD; Dr. Cortez Alcantar [facility]01[facility]16[facility]25 Evaluation note* Diagnosis Onset Date Resolution Status Admit Date ADHD acute March 11, 2024 4:26pm Insomnia acute March 11, 2024 4:26pm Medication monitoring encounter acute March 11 4:26pm Colon cancer screening acute Fe bruary 2024 9:03am ADHD acute Li 1st, 202 5 1:44pm Encounter for routine gynecological examination noneactive June 02, 2024 6:51am [facility] Work Phone: 1(389) 113-133401-07-2025 NotePatient Outreach (INTMMN) KIRA HOYT ([id number]) 1980 F Date Time Provider Department 03/02/24 GODFREY WALSH During your visit today, we recorded the following information about you: Allergies As of Date: 03/02/2024 Noted Allergy Reaction CAT HAIR EXTRACT 12/04/2004 Comments: nasal congestion COTTON 12/04/2004 Comments: nasal congestion DUST 12/04/2004 Comments: nasal congestion MOLD 12/04/2004 Comments: nasal congestion Date Reviewed: 09/24/2022 Reviewed by: Morena Luna MD - Fully Assessed Visit Diagnosis:Encounter for screening mammogram for breast cancer [Z12.31] Order(s):[facility] SCREENING Jen ADAM [[id number]] Order #: [id number] FUTURE Prescriptions as of 03/05/2024 - amphetamine-dextroamphetamine XR (ADDERALL XR) 30 mg capsule Take 1 capsule by mouth once daily for 30 days. - amphetamine-dextroamphetamine XR (ADDERALL XR) 30 mg capsule Take 1 capsule by mouth once daily for 30 days. Do not start before October 16, 2023. - amphetamine-dextroamphetamine XR (ADDERALL XR) 30 mg capsule Take 1 capsule by mouth once daily for 30 days. Do not start before November 15, 2023. - dextroamphetamine-amphetamine (ADDERALL) 5 mg tablet Take 1 tablet by mouth once daily for 30 days. - dextroamphetamine-amphetamine (ADDERALL) 5 mg tablet Take 1 tablet by mouth once daily for 30 days. Do not start before October 16, 2023. - dextroamphetamine-amphetamine (ADDERALL) 5 mg tablet Take 1 tablet by mouth once daily for 30 days. Do not start before November 15, 2023. - amphetamine-dextroamphetamine XR (ADDERALL XR) 30 mg capsule Take 1 capsule by mouth once daily for 30 days. Do not start before September 06, 2023. - levonorgestrel (MIRENA) 20 mcg/24 hours (5 yrs) 52 mg IUD 1 Each by INTRAUTERINE route as directed. Problem List As Of Date 03/02/2024 Noted Resolved Cyst of right lower eyelid [H02.822] 01/23/2015 11/19/2021 Eyelid lesion [H02.9] 01/30/2015 11/19/2021 Vitreous floaters of both eyes [H43.393] 03/06/2015 ADD (attention deficit disorder) [F98.8] 10/10/2016 Obesity, Class I, BMI 30-34.9 [E66.811] 03/12/2022 Encounter Status:Closed by [employer] on 03/05/24[facility] 09-16-2023 NoteHNO ID: [id number] Author: GODFREY WALSH MD Service: ? Author Type: Physician Type: Progress Notes Filed: 09/16/2023 09:49 Note Text: Patient presents with: Follow Up: ADHD HPI:This visit is a virtual encounter. It required patient-provider interaction for the medical decision making as documented below. Patient has elected to have a visit through distance medicine I have communicated my name and active licensure. The patient's identity and physical location were verified at the time of this visit. Either the patient or their legal development representative has been informed of the risks and benefits of -- and alternatives to -- treatment through a remote evaluation and consents to proceed with the evaluation remotely. ADHD. Remains on Adderall xr and adderall Tox screens done in September of 2022. Side effects:no side effects from meds. No chest pain or shortness of breath. No jitteriness. No headaches. No issues with her stomach. Benefits:helps with focus. Oarrs done. No hx of misuse or abuse of meds. Does not call for them early. Due for refills:now, last fill 08/18 Will be getting a new physician end of October due to her insurance. Has to pay for visit out of pocket. MEDICATIONS: Current Outpatient Medications Medication Sig amphetamine-dextroamphetamine XR (ADDERALL XR) 30 mg capsule Take 1 capsule by mouth once daily for 30 days. Do not start before July 09, 2023. amphetamine-dextroamphetamine XR (ADDERALL XR) 30 mg capsule Take 1 capsule by mouth once daily for 30 days. Do not start before August 08, 2023. amphetamine-dextroamphetamine XR (ADDERALL XR) 30 mg capsule Take 1 capsule by mouth once daily for 30 days. Do not start before September 06, 2023. dextroamphetamine-amphetamine (ADDERALL) 5 mg tablet Take 1 tablet by mouth once daily for 30 days. Do not start before July 09, 2023. dextroamphetamine-amphetamine (ADDERALL) 5 mg tablet Take 1 tablet by mouth once daily for 30 days. Do not start before August 08, 2023. dextroamphetamine-amphetamine (ADDERALL) 5 mg tablet Take 1 tablet by mouth once daily for 30 days. Do not start before September 06, 2023. amphetamine-dextroamphetamine XR (ADDERALL XR) 30 mg capsule Take 1 capsule by mouth once daily for 30 days. Do not start before May 31, 2023. dextroamphetamine-amphetamine (ADDERALL) 5 mg tablet Take 1 tablet by mouth once daily for 30 days. Do not start before May 27, 2023. levonorgestrel (MIRENA) 20 mcg/24 hours (5 yrs) 52 mg IUD 1 Each by INTRAUTERINE route as directed. No current facility-administered medications for this visit. ALLERGIES: ALLERGIES Allergen Reactions Cat Hair Extract nasal congestion Cotton nasal congestion Dust nasal congestion Mold nasal congestion PAST MEDICAL HISTORY Diagnosis Date ADD (attention deficit disorder) Adjustment disorder with depressed mood Deep vein thromb-postpar PAST SURGICAL HISTORY Procedure Laterality Date APPENDECTOMY 97 DILATION AND CURETTAGE DXAND/THER NONOBSTETRIC 97 Dilation AND curettage-mirena IUD -97 INSERTION OF IUD 02/22/2015, 10/28/2019 FAMILY HISTORY Problem Relation Age of Onset Colon Cancer Maternal Grandfather Heart Paternal Grandfather [place] Diabetes Paternal Aunt Social History Tobacco Use Smoking status: Some Days Types: Cigarettes Smokeless tobacco: Never Vaping Use Vaping Use: Never used Substance Use Topics Alcohol use: Yes Comment: Social Drug use: No Reviewed current medications, allergies, past medical history, surgical history, family history and social history today. REVIEW OF SYSTEMS All other reviewed and negative other than HPI. VITALS: Could not assess Last 4 Encounter Wt Readings: Date: Wt: 03/28/2023 88.5 kg (195 lb) 09/24/2022 89.1 kg (196 lb 6.4 oz) 03/12/2022 94.3 kg (207 lb 12.8 oz) 11/19/2021 91.4 kg (201 lb 6.4 oz) PHYSICAL EXAMINATION: Patient is alert and oriented during visit. Answers appropriately. Breathing comfortably. ASSESSMENT/PLAN: 1. Attention deficit disorder, unspecified hyperactivity presence - ICD9: 314.00, ICD10: F98.8 - Continue current medications. Notify us if any difficulties are noted. Will be switching out due to costs. - DEXTROAMPHETAMINE-AMPHETAMINE ER 30 MG 24HR CAPSULE,EXTEND RELEASE - DEXTROAMPHETAMINE-AMPHETAMINE ER 30 MG 24HR CAPSULE,EXTEND RELEASE - DEXTROAMPHETAMINE-AMPHETAMINE ER 30 MG 24HR CAPSULE,EXTEND RELEASE - DEXTROAMPHETAMINE-AMPHETAMINE 5 MG TABLET - DEXTROAMPHETAMINE-AMPHETAMINE 5 MG TABLET - DEXTROAMPHETAMINE-AMPHETAMINE 5 MG TABLET Godfrey Walsh [facility]07-23-2024 History of Present illness Narrative* Godfrey Walsh MD - 09/16/2023 9:38 AM EDT Patient presents with: Follow Up: ADHD HPI:This visit is a virtual encounter. It required patient-provider interaction for the medical decision making as documented below. Patient has elected to have a visit through distance medicine I have communicated my name and active licensure. The patient's identity and physical location wereverified at the time of this visit. Either the patient or their legal development representative has been informed of the risks and benefits of -- and alternatives to -- treatment through a remote evaluation andconsents to proceed with the evaluation remotely. ADHD. Remains on Adderall xr and adderall Tox screens done in September of 2022. Side effects:no side effects from meds. No chest pain or shortness of breath. No jitteriness. No headaches. No issues with her stomach. Benefits:helps with focus. Oarrs done. No hx of misuse or abuse of meds. Does not call for them early. Due for refills:now, last fill 08/18 Will be getting a new physician end of October due to her insurance. Has to pay for visit out of pocket. MEDICATIONS: Current Outpatient Medications Medication Sig amphetamine-dextroamphetamine XR (ADDERALL XR) 30 mg capsule Take 1 capsule by mouth once daily for30 days. Do not start before July 09, 2023. amphetamine-dextroamphetamine XR (ADDERALL XR) 30 mg capsule Take 1 capsule by mouth once daily for30 days. Do not start before August 08, 2023. amphetamine-dextroamphetamine XR (ADDERALL XR) 30 mg capsule Take 1 capsule by mouth once daily for30 days. Do not start before September 06, 2023. dextroamphetamine-amphetamine (ADDERALL) 5 mg tablet Take 1 tablet by mouth once daily for 30 days.Do not start before July 09, 2023. dextroamphetamine-amphetamine (ADDERALL) 5 mg tablet Take 1 tablet by mouth once daily for 30 days.Do not start before August 08, 2023. dextroamphetamine-amphetamine (ADDERALL) 5 mg tablet Take 1 tablet by mouth once daily for 30 days.Do not start before September 06, 2023. amphetamine-dextroamphetamine XR (ADDERALL XR) 30 mg capsule Take 1 capsule by mouth once daily for30 days. Do not start before May 31, 2023. dextroamphetamine-amphetamine (ADDERALL) 5 mg tablet Take 1 tablet by mouth once daily for 30 days.Do not start before May 27, 2023. levonorgestrel (MIRENA) 20 mcg/24 hours (5 yrs) 52 mg IUD 1 Each by INTRAUTERINE route as directed. No current facility-administered medications for this visit. ALLERGIES: ALLERGIES Allergen Reactions Cat Hair Extract nasal congestion Cotton nasal congestion Dust nasal congestion Mold nasal congestion PAST MEDICAL HISTORY Diagnosis Date ADD (attention deficit disorder) Adjustment disorder with depressed mood Deep vein thromb-postpar PAST SURGICAL HISTORY Procedure Laterality Date APPENDECTOMY 97 DILATION & CURETTAGE DX&/THER NONOBSTETRIC 97 Dilation & curettage-mirena IUD -97 INSERTION OF IUD 02/22/2015, 10/28/2019 FAMILY HISTORY Problem Relation Age of Onset Colon Cancer Maternal Grandfather Heart Paternal Grandfather [place] Diabetes Paternal Aunt Social History Tobacco Use Smoking status: Some Days Types: Cigarettes Smokeless tobacco: Never Vaping Use Vaping Use: Never used Substance Use Topics Alcohol use: Yes Comment: Social Drug use: No Reviewed current medications, allergies, past medical history, surgical history, family history andsocial history today. REVIEW OF SYSTEMS All other reviewed and negative other than HPI. VITALS: Could not assess Last 4 Encounter Wt Readings: Date: Wt: 03/28/2023 88.5 kg (195 lb) 09/24/2022 89.1 kg (196 lb 6.4 oz) 03/12/2022 94.3 kg (207 lb 12.8 oz) 11/19/2021 91.4 kg (201 lb 6.4 oz) PHYSICAL EXAMINATION: Patient is alert and oriented during visit. Answers appropriately. Breathing comfortably. ASSESSMENT/PLAN: 1. Attention deficit disorder, unspecified hyperactivity presence - ICD9: 314.00, ICD10: F98.8 - Continue current medications. Notify us if any difficulties are noted. Will be switching out due to costs. - DEXTROAMPHETAMINE-AMPHETAMINE ER 30 MG 24HR CAPSULE,EXTEND RELEASE - DEXTROAMPHETAMINE-AMPHETAMINE ER 30 MG 24HR CAPSULE,EXTEND RELEASE - DEXTROAMPHETAMINE-AMPHETAMINE ER 30 MG 24HR CAPSULE,EXTEND RELEASE - DEXTROAMPHETAMINE-AMPHETAMINE 5 MG TABLET - DEXTROAMPHETAMINE-AMPHETAMINE 5 MG TABLET - DEXTROAMPHETAMINE-AMPHETAMINE 5 MG TABLET [facility]frey Walsh [facility] NoteHNO ID: [id number] Author: GODFREY WALSH MD Service: ? Author Type: Physician Type: Progress Notes Filed: 06/18/2023 16:25 Note Text: Patient presents with: Follow Up HPI:This Team Access Model visit is a virtual encounter. It required patient-provider interaction for the medical decision making as documented below. Patient has elected to have a visit through distance medicine I have communicated my name and active licensure. The patient's identity and physical location were verified at the time of this visit. Either the patient or their legal development representative has been informed of the risks and benefits of -- and alternatives to -- treatment through a remote evaluation and consents to proceed with the evaluation remotely. Is having some insurance issues. Has remained on meds for some time. Tolerating meds well. Oarrs done. Focusing and tolerating meds well. No side effects. Sleeping well. Moods are good. MEDICATIONS: Current Outpatient Medications Medication Sig amphetamine-dextroamphetamine XR (ADDERALL XR) 30 mg capsule Take 1 capsule by mouth once daily for 30 days. Do not start before May 31, 2023. dextroamphetamine-amphetamine (ADDERALL) 5 mg tablet Take 1 tablet by mouth once daily for 30 days. Do not start before May 27, 2023. levonorgestrel (MIRENA) 20 mcg/24 hours (5 yrs) 52 mg IUD 1 Each by INTRAUTERINE route as directed. No current facility-administered medications for this visit. ALLERGIES: ALLERGIES Allergen Reactions Cat Hair Extract nasal congestion Cotton nasal congestion Dust nasal congestion Mold nasal congestion PAST MEDICAL HISTORY Diagnosis Date ADD (attention deficit disorder) Adjustment disorder with depressed mood Deep vein thromb-postpar PAST SURGICAL HISTORY Procedure Laterality Date APPENDECTOMY 97 DILATION AND CURETTAGE DXAND/THER NONOBSTETRIC 97 Dilation AND curettage-mirena IUD -97 INSERTION OF IUD 02/22/2015, 10/28/2019 FAMILY HISTORY Problem Relation Age of Onset Colon Cancer Maternal Grandfather Heart Paternal Grandfather [place] Diabetes Paternal Aunt Social History Tobacco Use Smoking status: Some Days Types: Cigarettes Smokeless tobacco: Never Vaping Use Vaping Use: Never used Substance Use Topics Alcohol use: Yes Comment: Social Drug use: No Reviewed current medications, allergies, past medical history, surgical history, family history and social history today. REVIEW OF SYSTEMS RESPIRATORY: Negative for cough, hemoptysis, wheezing, COPD, dyspnea or shortness of breath CARDIOVASCULAR: Negative for chest pain, leg swelling, hypertension, CHF or palpitations GI: No nausea, vomiting, or diarrhea and no weight loss. NEURO: No history of headaches, syncope, paralysis, seizures or tremors All other reviewed and negative other than HPI. VITALS: LMP 10/15/2004 Last 4 Encounter Wt Readings: Date: Wt: 03/28/2023 88.5 kg (195 lb) 09/24/2022 89.1 kg (196 lb 6.4 oz) 03/12/2022 94.3 kg (207 lb 12.8 oz) 11/19/2021 91.4 kg (201 lb 6.4 oz) PHYSICAL EXAMINATION: Patient is alert and oriented during visit. Answers appropriately. ASSESSMENT/PLAN: 1. Attention deficit disorder, unspecified hyperactivity presence - ICD9: 314.00, ICD10: F98.8 - Controlled prescriptions were written during the office visit. Sequential fill dates were listed on each. Patient is instructed that no additional scripts will be written until their next follow up visit. - DEXTROAMPHETAMINE-AMPHETAMINE ER 30 MG 24HR CAPSULE,EXTEND RELEASE - DEXTROAMPHETAMINE-AMPHETAMINE ER 30 MG 24HR CAPSULE,EXTEND RELEASE - DEXTROAMPHETAMINE-AMPHETAMINE ER 30 MG 24HR CAPSULE,EXTEND RELEASE - DEXTROAMPHETAMINE-AMPHETAMINE 5 MG TABLET - DEXTROAMPHETAMINE-AMPHETAMINE 5 MG TABLET - DEXTROAMPHETAMINE-AMPHETAMINE 5 MG TABLET Godfrey Walsh [facility]04-24-2024 History of Present illness Narrative* Godfrey Walsh MD - 06/18/2023 4:04 PM EDT Patient presents with: Follow Up HPI:This Team Access Model visit is a virtual encounter. It required patient- provider interaction for the medical decision making as documented below. Patient has elected to have a visit through distance medicine I have communicated my name and active licensure. The patient's identity and physical location wereverified at the time of this visit. Either the patient or their legal development representative has been informed of the risks and benefits of -- and alternatives to -- treatment through a remote evaluation andconsents to proceed with the evaluation remotely. Is having some insurance issues. Has remained on meds for some time. Tolerating meds well. Oarrs done. Focusing and tolerating meds well. No side effects. Sleeping well. Moods are good. MEDICATIONS: Current Outpatient Medications Medication Sig amphetamine-dextroamphetamine XR (ADDERALL XR) 30 mg capsule Take 1 capsule by mouth once daily for30 days. Do not start before May 31, 2023. dextroamphetamine-amphetamine (ADDERALL) 5 mg tablet Take 1 tablet by mouth once daily for 30 days.Do not start before May 27, 2023. levonorgestrel (MIRENA) 20 mcg/24 hours (5 yrs) 52 mg IUD 1 Each by INTRAUTERINE route as directed. No current facility-administered medications for this visit. ALLERGIES: ALLERGIES Allergen Reactions Cat Hair Extract nasal congestion Cotton nasal congestion Dust nasal congestion Mold nasal congestion PAST MEDICAL HISTORY Diagnosis Date ADD (attention deficit disorder) Adjustment disorder with depressed mood Deep vein thromb-postpar PAST SURGICAL HISTORY Procedure Laterality Date APPENDECTOMY 97 DILATION & CURETTAGE DX&/THER NONOBSTETRIC 97 Dilation & curettage-mirena IUD -97 INSERTION OF IUD 02/22/2015, 10/28/2019 FAMILY HISTORY Problem Relation Age of Onset Colon Cancer Maternal Grandfather Heart Paternal Grandfather [place] Diabetes Paternal Aunt Social History Tobacco Use Smoking status: Some Days Types: Cigarettes Smokeless tobacco: Never Vaping Use Vaping Use: Never used Substance Use Topics Alcohol use: Yes Comment: Social Drug use: No Reviewed current medications, allergies, past medical history, surgical history, family history andsocial history today. REVIEW OF SYSTEMS RESPIRATORY: Negative for cough, hemoptysis, wheezing, COPD, dyspnea or shortness of breath CARDIOVASCULAR: Negative for chest pain, leg swelling, hypertension, CHF or palpitations GI: No nausea, vomiting, or diarrhea and no weight loss. NEURO: No history of headaches, syncope, paralysis, seizures or tremors All other reviewed and negative other than HPI. VITALS: LMP 10/15/2004 Last 4 Encounter Wt Readings: Date: Wt: 03/28/2023 88.5 kg (195 lb) 09/24/2022 89.1 kg (196 lb 6.4 oz) 03/12/2022 94.3 kg (207 lb 12.8 oz) 11/19/2021 91.4 kg (201 lb 6.4 oz) PHYSICAL EXAMINATION: Patient is alert and oriented during visit. Answers appropriately. ASSESSMENT/PLAN: 1. Attention deficit disorder, unspecified hyperactivity presence - ICD9: 314.00, ICD10: F98.8 - Controlled prescriptions were written during the office visit. Sequential fill dates were listed on each. Patient is instructed that no additional scripts will be written until their next follow upvisit. - DEXTROAMPHETAMINE-AMPHETAMINE ER 30 MG 24HR CAPSULE,EXTEND RELEASE - DEXTROAMPHETAMINE-AMPHETAMINE ER 30 MG 24HR CAPSULE,EXTEND RELEASE - DEXTROAMPHETAMINE-AMPHETAMINE ER 30 MG 24HR CAPSULE,EXTEND RELEASE - DEXTROAMPHETAMINE-AMPHETAMINE 5 MG TABLET - DEXTROAMPHETAMINE-AMPHETAMINE 5 MG TABLET - DEXTROAMPHETAMINE-AMPHETAMINE 5 MG TABLET Godfrey Walsh [facility] NoteHNO ID: [id number] Author: GODFREY WALSH MD Service: ? Author Type: Physician Type: Progress Notes Filed: 03/28/2023 16:12 Note Text: Patient presents with: Physical HPI: Patient presents today for office visit for re establishing. Had to change last time due to lack of insurance./wellness check. ADD: Current Treatment: adderall Feels treatment is working well: Yes. Weight loss: No. Insomnia: No. GASTROENTEROLOGY complaints: No. Tremor: No. Mood disorder: No. Chest pain/Palpitations: No. Aware of risks associated with controlled substance use: Yes. Hx of misuse/abuse/diversion of meds: No. Had tox screen done in September reviewing records. Oarrs done. MEDICATIONS: Current Outpatient Medications Medication Sig amphetamine-dextroamphetamine XR (ADDERALL XR) 5 mg capsule Take 1 capsule by mouth once daily for 30 days. Do not start before March 04, 2023. amphetamine-dextroamphetamine XR (ADDERALL XR) 30 mg capsule Take 1 capsule by mouth once daily for 30 days. Do not start before March 04, 2023. levonorgestrel (MIRENA) 20 mcg/24 hours (5 yrs) 52 mg IUD 1 Each by INTRAUTERINE route as directed. No current facility-administered medications for this visit. ALLERGIES: ALLERGIES Allergen Reactions Cat Hair Extract nasal congestion Cotton nasal congestion Dust nasal congestion Mold nasal congestion PAST MEDICAL HISTORY Diagnosis Date ADD (attention deficit disorder) Adjustment disorder with depressed mood Deep vein thromb-postpar PAST SURGICAL HISTORY Procedure Laterality Date APPENDECTOMY 97 DILATION AND CURETTAGE DXAND/THER NONOBSTETRIC 97 Dilation AND curettage-mirena IUD -97 INSERTION OF IUD 02/22/2015, 10/28/2019 FAMILY HISTORY Problem Relation Age of Onset Colon Cancer Maternal Grandfather Heart Paternal Grandfather [place] Diabetes Paternal Aunt Social History Tobacco Use Smoking status: Some Days Types: Cigarettes Smokeless tobacco: Never Vaping Use Vaping Use: Never used Substance Use Topics Alcohol use: Yes Comment: Social Drug use: No Reviewed current medications, allergies, past medical history, surgical history, family history and social history today. REVIEW OF SYSTEMS Has oncychomycosis. No no chest pain or shortness of breath. No gi or gu issues. Getting skin check per derm soon. All other reviewed and negative other than HPI. HEALTH MAINTENANCE: Reviewed health maintenance issues today and recommended the following in detail. Hepatitis C Screening done. Mammogram Screening due on 09/17/2022 Depression Assessment due on 02/24/2023 VITALS: BP 138/72 Pulse 95 Wt 88.5 kg (195 lb) LMP 10/15/2004 SpO2 98% BMI 31.96 kg/m? Last 4 Encounter Wt Readings: Date: Wt: 03/28/2023 88.5 kg (195 lb) 09/24/2022 89.1 kg (196 lb 6.4 oz) 03/12/2022 94.3 kg (207 lb 12.8 oz) 11/19/2021 91.4 kg (201 lb 6.4 oz) PHYSICAL EXAMINATION: General appearance: Well appearing, alert, in no acute distress, well-hydrated, well nourished. Skin: Skin color, texture, turgor normal, no suspicious rashes or lesions Head: Normocephalic, no masses, lesions, tenderness or abnormalities Lungs: Lungs clear to auscultation. No wheezing, rhonchi, rales Heart: RRR without murmur, gallop, or rubs. No ectopy Abdomen: Normal abdominal exam, Abdomen soft, non-tender. Bowel sounds normal. No masses, organomegaly Extremities: No deformities, edema, skin discoloration, clubbing or cyanosis. Good capillary refill. ASSESSMENT/PLAN: Well check. 2. Attention deficit disorder, unspecified hyperactivity presence - ICD9: 314.00, ICD10: F98.8 (primary diagnosis) - Controlled prescriptions were written during the office visit. Sequential fill dates were listed on each. Patient is instructed that no additional scripts will be written until their next follow up visit. - DEPRESSION SCREENING/ASSESSMENT - DEXTROAMPHETAMINE-AMPHETAMINE 30 MG TABLET - DEXTROAMPHETAMINE-AMPHETAMINE 30 MG TABLET - DEXTROAMPHETAMINE-AMPHETAMINE 30 MG TABLET - DEXTROAMPHETAMINE-AMPHETAMINE 5 MG TABLET - DEXTROAMPHETAMINE-AMPHETAMINE 5 MG TABLET - DEXTROAMPHETAMINE-AMPHETAMINE 5 MG TABLET 3. Screening breast examination - ICD9: V76.10, ICD10: Z12.39 - Follow up for annual exam in one year. - RUBEN SCREENING W JAIR 4. Onychomycosis - see podiatry. Has failed otc tx. Godfrey Walsh [facility]02-02-2024 History of Present illness Narrative* Godfrey Walsh MD - 03/28/2023 3:32 PM EST Patient presents with: Physical HPI: Patient presents today for office visit for re establishing. Had to change last time due to lack of insurance./wellness check. ADD: Current Treatment: adderall Feels treatment is working well: Yes. Weight loss: No. Insomnia: No. GASTROENTEROLOGY complaints: No. Tremor: No. Mood disorder: No. Chest pain/Palpitations: No. Aware of risks associated with controlled substance use: Yes. Hx of misuse/abuse/diversion of meds: No. Had tox screen done in September reviewing records. Oarrs done. MEDICATIONS: Current Outpatient Medications Medication Sig amphetamine-dextroamphetamine XR (ADDERALL XR) 5 mg capsule Take 1 capsule by mouth once daily for 30 days. Do not start before March 04, 2023. amphetamine-dextroamphetamine XR (ADDERALL XR) 30 mg capsule Take 1 capsule by mouth once daily for30 days. Do not start before March 04, 2023. levonorgestrel (MIRENA) 20 mcg/24 hours (5 yrs) 52 mg IUD 1 Each by INTRAUTERINE route as directed. No current facility-administered medications for this visit. ALLERGIES: ALLERGIES Allergen Reactions Cat Hair Extract nasal congestion Cotton nasal congestion Dust nasal congestion Mold nasal congestion PAST MEDICAL HISTORY Diagnosis Date ADD (attention deficit disorder) Adjustment disorder with depressed mood Deep vein thromb-postpar PAST SURGICAL HISTORY Procedure Laterality Date APPENDECTOMY 97 DILATION & CURETTAGE DX&/THER NONOBSTETRIC 97 Dilation & curettage-mirena IUD -97 INSERTION OF IUD 02/22/2015, 10/28/2019 FAMILY HISTORY Problem Relation Age of Onset Colon Cancer Maternal Grandfather Heart Paternal Grandfather [place] Diabetes Paternal Aunt Social History Tobacco Use Smoking status: Some Days Types: Cigarettes Smokeless tobacco: Never Vaping Use Vaping Use: Never used Substance Use Topics Alcohol use: Yes Comment: Social Drug use: No Reviewed current medications, allergies, past medical history, surgical history, family history andsocial history today. REVIEW OF SYSTEMS Has oncychomycosis. No no chest pain or shortness of breath. No gi or gu issues. Getting skin check per derm soon. All other reviewed and negative other than HPI. HEALTH MAINTENANCE: Reviewed health maintenance issues today and recommended the following in detail. Hepatitis C Screening done. Mammogram Screening due on 09/17/2022 Depression Assessment due on 02/24/2023 VITALS: BP 138/72 Pulse 95 Wt 88.5 kg (195 lb) LMP 10/15/2004 SpO2 98% BMI 31.96 kg/m Last 4 Encounter Wt Readings: Date: Wt: 03/28/2023 88.5 kg (195 lb) 09/24/2022 89.1 kg (196 lb 6.4 oz) 03/12/2022 94.3 kg (207 lb 12.8 oz) 11/19/2021 91.4 kg (201 lb 6.4 oz) PHYSICAL EXAMINATION: General appearance: Well appearing, alert, in no acute distress, well-hydrated, well nourished. Skin: Skin color, texture, turgor normal, no suspicious rashes or lesions Head: Normocephalic, no masses, lesions, tenderness or abnormalities Lungs: Lungs clear to auscultation. No wheezing, rhonchi, rales Heart: RRR without murmur, gallop, or rubs. No ectopy Abdomen: Normal abdominal exam, Abdomen soft, non-tender. Bowel sounds normal. No masses, organomegaly Extremities: No deformities, edema, skin discoloration, clubbing or cyanosis. Good capillary refill. ASSESSMENT/PLAN: Well check. 2. Attention deficit disorder, unspecified hyperactivity presence - ICD9: 314.00, ICD10: F98.8 (primary diagnosis) - Controlled prescriptions were written during the office visit. Sequential fill dates were listed on each. Patient is instructed that no additional scripts will be written until their next follow upvisit. - DEPRESSION SCREENING/ASSESSMENT - DEXTROAMPHETAMINE-AMPHETAMINE 30 MG TABLET - DEXTROAMPHETAMINE-AMPHETAMINE 30 MG TABLET - DEXTROAMPHETAMINE-AMPHETAMINE 30 MG TABLET - DEXTROAMPHETAMINE-AMPHETAMINE 5 MG TABLET - DEXTROAMPHETAMINE-AMPHETAMINE 5 MG TABLET - DEXTROAMPHETAMINE-AMPHETAMINE 5 MG TABLET 3. Screening breast examination - ICD9: V76.10, ICD10: Z12.39 - Follow up for annual exam in one year. - RUBEN SCREENING W JAIR 4. Onychomycosis - see podiatry. Has failed otc tx. Godfrey Walsh MD [facility] Miscellaneous Notes* Telephone Encounter - Morena Luna MD - 01/07/2023 9:18 AM EST She is taking both the 30 and 5 mg. * Telephone Encounter - Morena Luna MD - 01/07/2023 9:18 AM EST ----- Message from Genesis Bailey MA sent at 01/07/2023 8:59 AM EST ----- Good morning Dr Lemus, I received a prior auth request for attached patient for Adderall 30mg. I sawthat the Adderall 5mg is still in her med list. Is the plan to keep her on both or to switch to [id number]? Just wanted some clarification for this prior auth. Thank you!! [facility]23 NoteHNO ID: [id number] Author: Morena Luna MD Service: ? Author Type: Physician Type: Progress Notes Filed: 01/03/2023 11:41 AM Note Text: I have communicated my name and active licensure. The patient's identity and physical location were verified at the time of this visit. Either the patient or their legal development representative has been informed of the risks and benefits of -- and alternatives to -- treatment through a remote evaluation and consents to proceed with the evaluation remotely. Follow up ADD stable on current medications. Functioning well Sleeping well No headache. Has difficulties getting the refills done. 3 MONTHS refill done. PDMP report reviewed. Urine tox test done 10/16 I spent a total of 25 minutes on the date of the service which included preparing to see the patient, [id number] patient care, completing clinical documentation, performing a medically appropriate examination, counseling and educating the patient/family/caregiver, and ordering medications, tests, or procedures Kira was seen today for follow up. Diagnoses and all orders for this visit: Attention deficit disorder, unspecified hyperactivity presence - Discontinue: amphetamine-dextroamphetamine XR (ADDERALL XR) 30 mg capsule; Take 1 capsule by mouth once daily for 30 days. - amphetamine-dextroamphetamine XR (ADDERALL XR) 5 mg capsule; Take 1 capsule by mouth once daily for 30 days. - amphetamine-dextroamphetamine XR (ADDERALL XR) 5 mg capsule; Take 1 capsule by mouth once daily for 30 days. Do not start before February 02, 2023. - amphetamine-dextroamphetamine XR (ADDERALL XR) 5 mg capsule; Take 1 capsule by mouth once daily for 30 days. Do not start before March 04, 2023. - amphetamine-dextroamphetamine XR (ADDERALL XR) 30 mg capsule; Take 1 capsule by mouth once daily for 30 days. - amphetamine-dextroamphetamine XR (ADDERALL XR) 30 mg capsule; Take 1 capsule by mouth once daily for 30 days. Do not start before February 02, 2023. - amphetamine-dextroamphetamine XR (ADDERALL XR) 30 mg capsule; Take 1 capsule by mouth once daily for 30 days. Do not start before March 04, 2023.[facility]11-10-[facility]23 History of Present illness Narrative* Morena Luna MD - 01/03/2023 11:29 AM EST I have communicated my name and active licensure. The patient's identity and physical location wereverified at the time of this visit. Either the patient or their legal development representative has been informed of the risks and benefits of -- and alternatives to -- treatment through a remote evaluation andconsents to proceed with the evaluation remotely. Follow up ADD stable on current medications. Functioning well Sleeping well No headache. Has difficulties getting the refills done. 3 MONTHS refill done. PDMP report reviewed. Urine tox test done 10/16 I spent a total of 25 minutes on the date of the service which included preparing to see the patient, [id number] patient care, completing clinical documentation, performing a medically appropriate examination, counseling and educating the patient/family/caregiver, and ordering medications, tests,or procedures Kira was seen today for follow up. Diagnoses and all orders for this visit: Attention deficit disorder, unspecified hyperactivity presence - Discontinue: amphetamine-dextroamphetamine XR (ADDERALL XR) 30 mg capsule; Take 1 capsule by mouth once daily for 30 days. - amphetamine-dextroamphetamine XR (ADDERALL XR) 5 mg capsule; Take 1 capsule by mouth once daily for 30 days. - amphetamine-dextroamphetamine XR (ADDERALL XR) 5 mg capsule; Take 1 capsule by mouth once daily for 30 days. Do not start before February 02, 2023. - amphetamine-dextroamphetamine XR (ADDERALL XR) 5 mg capsule; Take 1 capsule by mouth once daily for 30 days. Do not start before March 04, 2023. - amphetamine-dextroamphetamine XR (ADDERALL XR) 30 mg capsule; Take 1 capsule by mouth once daily for 30 days. - amphetamine-dextroamphetamine XR (ADDERALL XR) 30 mg capsule; Take 1 capsule by mouth once daily for 30 days. Do not start before February 02, 2023. - amphetamine-dextroamphetamine XR (ADDERALL XR) 30 mg capsule; Take 1 capsule by mouth once daily for 30 days. Do not start before March 04, 2023. documented in this [facility]10-10-2023 Miscellaneous Notes* Telephone Encounter - Mily Spencer MA - 12/03/2022 11:35 AM EDTSummary: EUSEBIO 09/24/2022 NOV 01/03/2023 Patient phones requesting refills as follows: Requested Prescriptions Pending Prescriptions Disp Refills amphetamine-dextroamphetamine XR (ADDERALL XR) 30 mg capsule 30 capsule 0 Sig: Take 1 capsule by mouth once daily for 30 days. Please review and advise. MILY SPENCER MA documented in this [facility]09-05-2023 Miscellaneous Notes* Telephone Encounter - Genesis Bailey MA - 10/29/2022 10:09 AM EDT APPROVED, amphetamine-dextroamphetamine XR (ADDERALL XR) 5 & 30 mg capsule Authorized from October 29, 2022 to October 30, 2023 *patient notified by * Telephone Encounter - Genesis Bailey MA - 10/29/2022 7:20 AM EDT PENDING, amphetamine-dextroamphetamine XR (ADDERALL XR) 5 & 30 mg capsule & [id number] [facility] Miscellaneous Notes* Telephone Encounter - Esperanza Escudero MA - 10/25/2022 11:17 AM EDT Patient phones requesting refills as follows: Requested Prescriptions Pending Prescriptions Disp Refills amphetamine-dextroamphetamine XR (ADDERALL XR) 30 mg capsule 30 capsule 0 Sig: Take 1 capsule by mouth once daily for 30 days. dextroamphetamine-amphetamine (ADDERALL) 5 mg tablet 30 tablet 0 Sig: Take 1 tablet by mouth once daily for 30 days. Please review and advise. Esperanza Escudero MA documented in this encounterSt[facility]08-[facility]-2023 NoteHNO ID: [id number] Author: Morena Luna MD Service: ? Author Type: Physician Type: Progress Notes Filed: 09/24/2022 2:40 PM Note Text: Office follow up note: 41 year old female, presents today for follow up visit. Patient reports being compliant with medication(s) and no adverse reactions to medication(s). ADD stable. On adderral Able to function Normal appetite Sleeping well PDMD report reviewed. ALLERGIES Allergen Reactions Cat Hair Extract nasal congestion Cotton nasal congestion Dust nasal congestion Mold nasal congestion Current Outpatient Medications Medication Sig amphetamine-dextroamphetamine XR (ADDERALL XR) 30 mg biphasic capsule Take 1 capsule by mouth once daily for 30 days. dextroamphetamine-amphetamine (ADDERALL) 5 mg tablet Take 1 tablet by mouth once daily for 30 days. levonorgestrel (MIRENA) 20 mcg/24 hours (5 yrs) 52 mg IUD 1 Each by INTRAUTERINE route as directed. No current facility-administered medications for this visit. PAST MEDICAL HISTORY Diagnosis Date ADD (attention deficit disorder) Adjustment disorder with depressed mood Deep vein thromb-postpar PAST SURGICAL HISTORY Procedure Laterality Date APPENDECTOMY 97 DILATION AND CURETTAGE DXAND/THER NONOBSTETRIC 97 Dilation AND curettage-mirena IUD -97 INSERTION OF IUD 02/22/2015, 10/28/2019 FAMILY HISTORY Problem Relation Age of Onset Colon Cancer Maternal Grandfather Heart Paternal Grandfather [place] Diabetes Paternal Aunt Social History Tobacco Use Smoking status: Some Days Types: Cigarettes Smokeless tobacco: Never Vaping Use Vaping Use: Never used Substance Use Topics Alcohol use: Yes Comment: Social Drug use: No REVIEW OF SYSTEMS: GENERAL: Negative for malaise, significant weight loss, night sweats and fever HEENT: No changes in hearing or vision. No sinus pain or pressure, No trouble swallowing RESPIRATORY: Negative for cough, wheezing and shortness of breath CADIOVASCULAR: Negative for chest pain, leg swelling, palpitations, orthopnea GI: Negative for abdominal discomfort, hematochezia, melena, hematemesis, change in bowel habits, diarrhea, constipation, nausea or vomiting. : Negative for dysuria, frequency and incontinence MUSCULOSKELETAL: Negative for joint pain or swelling and muscle pain. HEMATOLOGY Negative for prolonged bleeding, bruising easily, and swollen nodes. ENDOCRINE: Negative for cold or heat intolerance, polyuria, polydipsia and goiter. NEURO: Negative for lightheadedness, dizziness, tremor, gait imbalance, syncope and seizures. PHYSICAL EXAM: VITALS: Blood pressure 128/84, pulse 88, temperature 36.8 ?C (98.2 ?F), temperature source Oral, resp. rate 18, height 166.4 cm (5' 5.5), weight 89.1 kg (196 lb 6.4 oz), last menstrual period 10/15/2004, SpO2 98 %., Body mass index is 32.19 kg/m?. GENERAL: Healthy, alert, no distress, cooperative SKIN: Skin color, texture, turgor normal. No rashes or lesions. HEENT: PERRL, EOMI, and normal dentition CARDIAC: Normal S1 and S2; no rubs, murmurs, or gallops LUNGS: Lungs clear to auscultation, Good diaphragmatic excursion ABDOMEN: Non distended, positive bowel sounds all 4 quadrants, soft non-tender, no organomegaly EXTREMITIES: Extremities normal, no deformities, edema, clubbing or skin discoloration. Good capillary refill., No ulcers NEURO: Gait normal. Reflexes normal and symmetric. Sensation grossly intact, Cranial nerves II-XII intact PULSES: 2+ radial LAB RESULTS: Results for orders placed or performed in visit on 08/13/21 CBC + DIFF Result Value Ref Range WBC 6.59 3.70 - 11.00 k/uL RBC 4.25 3.90 - 5.20 m/uL Hemoglobin 13.9 11.5 - 15.5 g/dL Hematocrit 41.4 36.0 - 46.0 % MCV 97.4 80.0 - 100.0 fL MCH 32.7 26.0 - 34.0 pg MCHC 33.6 30.5 - 36.0 g/dL RDW-CV 13.0 11.5 - 15.0 % Platelet Count 258 150 - 400 k/uL MPV 9.5 9.0 - 12.7 fL Neutrophils % 60.9 % Abs Neut 4.02 1.45 - 7.50 k/uL Lymphocytes % 28.1 % Abs Lymph 1.85 1.00 - 4.00 k/uL Monocytes % 9.3 % Abs Alpine 0.61 <0.87 k/uL Eosinophils % 0.9 % Abs Eosin 0.06 <0.46 k/uL Basophils % 0.5 % Abs Baso 0.03 <0.11 k/uL Immature Granulocytes % 0.3 % Abs Immature Gran <0.03 <0.10 k/uL NRBC 0.0 /100 WBC Absolute nRBC <0.01 <0.01 k/uL Diff Type Auto COMP METABOLIC PANEL Result Value Ref Range Protein, Total 8.1 (H) 6.3 - 8.0 g/dL Albumin 4.8 3.9 - 4.9 g/dL Calcium, Total 10.2 8.5 - 10.2 mg/dL Bilirubin, Total 0.6 0.2 - 1.3 mg/dL Alkaline Phosphatase 45 34 - 123 U/L AST 36 (H) 13 - 35 U/L ALT 42 (H) 7 - 38 U/L Glucose 106 (H) 74 - 99 mg/dL BUN 9 7 - 21 mg/dL Creatinine 0.68 0.58 - 0.96 mg/dL Sodium 135 (L) 136 - 144 mmol/L Potassium 3.7 3.7 - 5.1 mmol/L Chloride 97 97 - 105 mmol/L CO2 24 22 - 30 mmol/L Anion Gap 14 9 - 18 mmol/L Estimated Glomerular Filtration Rate 112 >=60 mL/min/1.73m? LIPID PANEL BASIC Result Value Ref Range Cholesterol, Tot (more content not included)...[facility]08-01-2023 History of Present illness Narrative* Morena Luna MD - 09/24/2022 2:27 PM EDT Office follow up note: 41 year old female, presents today for follow up visit. Patient reports being compliant with medication(s) and no adverse reactions to medication(s). ADD stable. On adderral Able to function Normal appetite Sleeping well PDMD report reviewed. ALLERGIES Allergen Reactions Cat Hair Extract nasal congestion Cotton nasal congestion Dust nasal congestion Mold nasal congestion Current Outpatient Medications Medication Sig amphetamine-dextroamphetamine XR (ADDERALL XR) 30 mg biphasic capsule Take 1 capsule by mouth once daily for 30 days. dextroamphetamine-amphetamine (ADDERALL) 5 mg tablet Take 1 tablet by mouth once daily for 30 days. levonorgestrel (MIRENA) 20 mcg/24 hours (5 yrs) 52 mg IUD 1 Each by INTRAUTERINE route as directed. No current facility-administered medications for this visit. PAST MEDICAL HISTORY Diagnosis Date ADD (attention deficit disorder) Adjustment disorder with depressed mood Deep vein thromb-postpar PAST SURGICAL HISTORY Procedure Laterality Date APPENDECTOMY 97 DILATION & CURETTAGE DX&/THER NONOBSTETRIC 97 Dilation & curettage-mirena IUD -97 INSERTION OF IUD 02/22/2015, 10/28/2019 FAMILY HISTORY Problem Relation Age of Onset Colon Cancer Maternal Grandfather Heart Paternal Grandfather [place] Diabetes Paternal Aunt Social History Tobacco Use Smoking status: Some Days Types: Cigarettes Smokeless tobacco: Never Vaping Use Vaping Use: Never used Substance Use Topics Alcohol use: Yes Comment: Social Drug use: No REVIEW OF SYSTEMS: GENERAL: Negative for malaise, significant weight loss, night sweats and fever HEENT: No changes in hearing or vision. No sinus pain or pressure, No trouble swallowing RESPIRATORY: Negative for cough, wheezing and shortness of breath CADIOVASCULAR: Negative for chest pain, leg swelling, palpitations, orthopnea GI: Negative for abdominal discomfort, hematochezia, melena, hematemesis, change in bowel habits, diarrhea, constipation, nausea or vomiting. : Negative for dysuria, frequency and incontinence MUSCULOSKELETAL: Negative for joint pain or swelling and muscle pain. HEMATOLOGY Negative for prolonged bleeding, bruising easily, and swollen nodes. ENDOCRINE: Negative for cold or heat intolerance, polyuria, polydipsia and goiter. NEURO: Negative for lightheadedness, dizziness, tremor, gait imbalance, syncope and seizures. PHYSICAL EXAM: VITALS: Blood pressure 128/84, pulse 88, temperature 36.8 C (98.2 F), temperature source Oral, resp. rate 18, height 166.4 cm (5' 5.5), weight 89.1 kg (196 lb 6.4 oz), last menstrual period 10/15/2004, SpO2 98 %., Body mass index is 32.19 kg/m . GENERAL: Healthy, alert, no distress, cooperative SKIN: Skin color, texture, turgor normal. No rashes or lesions. HEENT: PERRL, EOMI, and normal dentition CARDIAC: Normal S1 and S2; no rubs, murmurs, or gallops LUNGS: Lungs clear to auscultation, Good diaphragmatic excursion ABDOMEN: Non distended, positive bowel sounds all 4 quadrants, soft non-tender, no organomegaly EXTREMITIES: Extremities normal, no deformities, edema, clubbing or skin discoloration. Good capillary refill., No ulcers NEURO: Gait normal. Reflexes normal and symmetric. Sensation grossly intact, Cranial nerves II-XII intact PULSES: 2+ radial LAB RESULTS: Results for orders placed or performed in visit on 08/13/21 CBC + DIFF Result Value Ref Range WBC 6.59 3.70 - 11.00 k/uL RBC 4.25 3.90 - 5.20 m/uL Hemoglobin 13.9 11.5 - 15.5 g/dL Hematocrit 41.4 36.0 - 46.0 % MCV 97.4 80.0 - 100.0 fL MCH 32.7 26.0 - 34.0 pg MCHC 33.6 30.5 - 36.0 g/dL RDW-CV 13.0 11.5 - 15.0 % Platelet Count 258 150 - 400 k/uL MPV 9.5 9.0 - 12.7 fL Neutrophils % 60.9 % Abs Neut 4.02 1.45 - 7.50 k/uL Lymphocytes % 28.1 % Abs Lymph 1.85 1.00 - 4.00 k/uL Monocytes % 9.3 % Abs Alpine 0.61 <0.87 k/uL Eosinophils % 0.9 % Abs Eosin 0.06 <0.46 k/uL Basophils % 0.5 % Abs Baso 0.03 <0.11 k/uL Immature Granulocytes % 0.3 % Abs Immature Gran <0.03 <0.10 k/uL NRBC 0.0 /100 WBC Absolute nRBC <0.01 <0.01 k/uL Diff Type Auto COMP METABOLIC PANEL Result Value Ref Range Protein, Total 8.1 (H) 6.3 - 8.0 g/dL Albumin 4.8 3.9 - 4.9 g/dL Calcium, Total 10.2 8.5 - 10.2 mg/dL Bilirubin, Total 0.6 0.2 - 1.3 mg/dL Alkaline Phosphatase 45 34 - 123 U/L AST 36 (H) 13 - 35 U/L ALT 42 (H) 7 - 38 U/L Glucose 106 (H) 74 - 99 mg/dL BUN 9 7 - 21 mg/dL Creatinine 0.68 0.58 - 0.96 mg/dL Sodium 135 (L) 136 - 144 mmol/L Potassium 3.7 3.7 - 5.1 mmol/L Chloride 97 97 - 105 mmol/L CO2 24 22 - 30 mmol/L Anion Gap 14 9 - 18 mmol/L Estimated Glomerular Filtration Rate 112 >=60 mL/min/1.73m LIPID PANEL BASIC Result Value Ref Range Cholesterol, Total 233 (H) <200 mg/dL Triglyceride 87 <150 mg/dL HDL Cholesterol 123 >39 mg/dL Non HDL Cholesterol 110 <130 mg/dL Fasting Time 12 hrs VLDL Cholesterol 17 <30 mg/dL TC:HDL Ratio 1.89 <5.10 LDL Cholesterol 93 <100 mg/dL LDL:HDL Ratio 0.76 <2.54 TOX SCREEN ROUT UR Result Value Ref Range Phencyclidine Urine Negative Negative Benzodiazepines Urine Negative Negative Cocaine Urine Negative Negative Amphetamines Urine Preliminary positive (A) Negative Cannabinoids, Urine Negative Negative Opiates Urine Negative Negative Barbiturates Urine Negative Negative Ethanol, Urine <11 <11 mg/dL Oxycodone, Urine Negative Negative ASSESSMENT/PLAN: 1. Encounter for screening mammogram for breast cancer - ICD9: V76.12, ICD10: Z12.31 (primary diagnosis) - Encouraged monthly BSE - Follow up for annual exam in one year. - RUBEN SCREENING 2. Attention deficit disorder, unspecified hyperactivity presence - ICD9: 314.00, ICD10: F98.8 - DEXTROAMPHETAMINE-AMPHETAMINE ER 30 MG 24HR CAPSULE,EXTEND RELEASE - DEXTROAMPHETAMINE-AMPHETAMINE 5 MG TABLET - TOX SCREEN ROUT UR 3. Screening for lipid disorders - ICD9: V77.91, ICD10: Z13.220 Morena Luna MD documented in this encounterSt[facility] NoteHNO ID: [id number] Author: Morena Luna MD Service: ? Author Type: Physician Type: Progress Notes Filed: 06/13/2022 1:58 PM Note Text: This note was created using AppShareriter. Subjective Kira Hoyt is a 41 year old female. HPI ADD on adderrall xr and extra 5 mg. Doing well. Changed job but her new job does not offer insurance. Not wanting to do the labs yet till get insurance. Got sore throat , hoarseness of voice no fever Got better but still has cough and hoarse voice. No sob. No neck masses. PAST MEDICAL HISTORY Diagnosis Date ADD (attention deficit disorder) Adjustment disorder with depressed mood Deep vein thromb-postpar PAST SURGICAL HISTORY Procedure Laterality Date APPENDECTOMY 97 DILATION AND CURETTAGE DXAND/THER NONOBSTETRIC 97 Dilation AND curettage-mirena IUD -97 INSERTION OF IUD 02/22/2015, 10/28/2019 Total time Review of Systems Constitutional: Negative for fatigue, fever and unexpected weight change. Respiratory: Positive for cough. Negative for apnea and chest tightness. Cardiovascular: Negative for chest pain and leg swelling. Endocrine: Negative for cold intolerance and heat intolerance. Genitourinary: Negative for difficulty urinating, dyspareunia and dysuria. Objective LMP 10/15/2004 Physical Exam Assessment and Plan Diagnoses and all orders for this visit: Attention deficit disorder, unspecified hyperactivity presence - amphetamine-dextroamphetamine XR (ADDERALL XR) 30 mg 24 hr capsule; Take 1 capsule by mouth once daily for 30 days. - amphetamine-dextroamphetamine XR (ADDERALL XR) 30 mg 24 hr capsule; Take 1 capsule by mouth once daily for 30 days. Do not start before July 13, 2022. - amphetamine-dextroamphetamine XR (ADDERALL XR) 30 mg 24 hr capsule; Take 1 capsule by mouth once daily for 30 days. Do not start before August 12, 2022. - dextroamphetamine-amphetamine (ADDERALL) 5 mg tablet; Take 1 tablet by mouth every 12 hours for 30 days. Do not start before July 13, 2022. - dextroamphetamine-amphetamine (ADDERALL) 5 mg tablet; Take 1 tablet by mouth once daily for 30 days. - dextroamphetamine-amphetamine (ADDERALL) 5 mg tablet; Take 1 tablet by mouth once daily for 30 days. Do not start before August 13, 2022. - TOX SCREEN ROUT UR; Future Laryngitis - Amoxicillin 500 mg tablet; Take 1 tablet by mouth three times daily for 7 days. - predniSONE (DELTASONE) 20 mg tablet; Take 1 tablet by mouth once daily for 5 days. Total time 15 min. I have communicated my name and active licensure. The patient's identity and physical location were verified at the time of this visit. Either the patient or their legal development representative has been informed of the risks and benefits of -- and alternatives to -- treatment through a remote evaluation and consents to proceed with the evaluation remotely.[facility]04-20-2023 NoteHNO ID: [id number] Author: Morena Luna MD Service: ? Author Type: Physician Type: Progress Notes Filed: 06/13/2022 1:58 PM Note Text: .[facility]04-20-2023 History of Present illness Narrative* Morena Luna MD - 06/13/2022 1:52 PM EDT This note was created using NoteWriter. Subjective Kira Hoyt is a 41 year old female. HPI ADD on adderrall xr and extra 5 mg. Doing well. Changed job but her new job does not offer insurance. Not wanting to do the labs yet till get insurance. Got sore throat , hoarseness of voice no fever Got better but still has cough and hoarse voice. No sob. No neck masses. PAST MEDICAL HISTORY Diagnosis Date ADD (attention deficit disorder) Adjustment disorder with depressed mood Deep vein thromb-postpar PAST SURGICAL HISTORY Procedure Laterality Date APPENDECTOMY 97 DILATION & CURETTAGE DX&/THER NONOBSTETRIC 97 Dilation & curettage-mirena IUD -97 INSERTION OF IUD 02/22/2015, 10/28/2019 Total time Review of Systems Constitutional: Negative for fatigue, fever and unexpected weight change. Respiratory: Positive for cough. Negative for apnea and chest tightness. Cardiovascular: Negative for chest pain and leg swelling. Endocrine: Negative for cold intolerance and heat intolerance. Genitourinary: Negative for difficulty urinating, dyspareunia and dysuria. Objective LMP 10/15/2004 Physical Exam Assessment and Plan Diagnoses and all orders for this visit: Attention deficit disorder, unspecified hyperactivity presence - amphetamine-dextroamphetamine XR (ADDERALL XR) 30 mg 24 hr capsule; Take 1 capsule by mouth once daily for 30 days. - amphetamine-dextroamphetamine XR (ADDERALL XR) 30 mg 24 hr capsule; Take 1 capsule by mouth once daily for 30 days. Do not start before July 13, 2022. - amphetamine-dextroamphetamine XR (ADDERALL XR) 30 mg 24 hr capsule; Take 1 capsule by mouth once daily for 30 days. Do not start before August 12, 2022. - dextroamphetamine-amphetamine (ADDERALL) 5 mg tablet; Take 1 tablet by mouth every 12 hours for 30 days. Do not start before July 13, 2022. - dextroamphetamine-amphetamine (ADDERALL) 5 mg tablet; Take 1 tablet by mouth once daily for 30 days. - dextroamphetamine-amphetamine (ADDERALL) 5 mg tablet; Take 1 tablet by mouth once daily for 30 days. Do not start before August 13, 2022. - TOX SCREEN ROUT UR; Future Laryngitis - Amoxicillin 500 mg tablet; Take 1 tablet by mouth three times daily for 7 days. - predniSONE (DELTASONE) 20 mg tablet; Take 1 tablet by mouth once daily for 5 days. Total time 15 min. I have communicated my name and active licensure. The patient's identity and physical location wereverified at the time of this visit. Either the patient or their legal development representative has been informed of the risks and benefits of -- and alternatives to -- treatment through a remote evaluation andconsents to proceed with the evaluation remotely. * Morena Luna MD - 06/13/2022 1:44 PM EDT .virt documented in this encounterSt[facility]03-24-[facility]23 Miscellaneous Notes* Telephone Encounter - Gia Subramanian MA - 05/17/2022 11:39 AM EDT Patient called requesting the following refill. Requested Prescriptions Pending Prescriptions Disp Refills amphetamine-dextroamphetamine XR (ADDERALL XR) 30 mg 24 hr capsule 30 capsule 0 Sig: Take 1 capsule by mouth once daily for 30 days. Patient last appointment: 03/12/2022 Patient Phone numbers: [phone] (home) Request is for script(s) to be escript to pharmacy. Gia Subramanian MA documented in this encounterSt. [facility]01-17-2023 NoteHNO ID: [id number] Author: Morena Luna MD Service: ? Author Type: Physician Type: Progress Notes Filed: 03/12/2022 8:51 AM Note Text: Office follow up note: 41 year old female, presents today for follow up visit. Patient reports being compliant with medication(s) and no adverse reactions to medication(s). ADHD on adderrall Stable Doing well Able to focus Sleeping well. Body mass index is 34.05 kg/m?. Occasional smoking Go to the gym 3 days a week. ALLERGIES Allergen Reactions Cat Hair Extract nasal congestion Cotton nasal congestion Dust nasal congestion Mold nasal congestion Current Outpatient Medications Medication Sig dextroamphetamine-amphetamine (ADDERALL) 5 mg tablet Take 1 tablet by mouth once daily. amphetamine-dextroamphetamine XR (ADDERALL XR) 30 mg 24 hr capsule Take 30 mg by mouth once daily. levonorgestrel (MIRENA) 20 mcg/24 hours (5 yrs) 52 mg IUD 1 Each by INTRAUTERINE route as directed. No current facility-administered medications for this visit. PAST MEDICAL HISTORY Diagnosis Date ADD (attention deficit disorder) Adjustment disorder with depressed mood Deep vein thromb-postpar PAST SURGICAL HISTORY Procedure Laterality Date APPENDECTOMY 97 DILATION AND CURETTAGE DXAND/THER NONOBSTETRIC 97 Dilation AND curettage-mirena IUD -97 INSERTION OF IUD 02/22/2015, 10/28/2019 FAMILY HISTORY Problem Relation Age of Onset Colon Cancer Maternal Grandfather Heart Paternal Grandfather [place] Diabetes Paternal Aunt REVIEW OF SYSTEMS: HEENT: No changes in hearing or vision. No sinus pain or pressure, No trouble swallowing RESPIRATORY: Negative for cough, wheezing and shortness of breath CADIOVASCULAR: Negative for chest pain, leg swelling, palpitations, orthopnea GI: Negative for abdominal discomfort, hematochezia, melena, hematemesis, change in bowel habits, diarrhea, constipation, nausea or vomiting. : Negative for dysuria, frequency and incontinence MUSCULOSKELETAL: Negative for joint pain or swelling and muscle pain. HEMATOLOGY Negative for prolonged bleeding, bruising easily, and swollen nodes. ENDOCRINE: Negative for cold or heat intolerance, polyuria, polydipsia and goiter. NEURO: Negative for lightheadedness, dizziness, tremor, gait imbalance, syncope and seizures. PHYSICAL EXAM: VITALS: Blood pressure 144/88, pulse 95, temperature 36.1 ?C (97 ?F), temperature source Temporal, resp. rate 18, height 166.4 cm (5' 5.5), weight 94.3 kg (207 lb 12.8 oz), last menstrual period 10/15/2004, SpO2 99 %., Body mass index is 34.05 kg/m?. GENERAL: Healthy, alert, no distress, cooperative SKIN: Skin color, texture, turgor normal. No rashes or lesions. HEENT: PERRL, EOMI, and normal dentition CARDIAC: Normal S1 and S2; no rubs, murmurs, or gallops LUNGS: Lungs clear to auscultation, Good diaphragmatic excursion ABDOMEN: Non distended, positive bowel sounds all 4 quadrants, soft non-tender, no organomegaly EXTREMITIES: Extremities normal, no deformities, edema, clubbing or skin discoloration. Good capillary refill., No ulcers NEURO: Gait normal. Reflexes normal and symmetric. Sensation grossly intact, Cranial nerves II-XII intact PULSES: 2+ radial LAB RESULTS: Results for orders placed or performed in visit on 08/13/21 CBC + DIFF Result Value Ref Range WBC 6.59 3.70 - 11.00 k/uL RBC 4.25 3.90 - 5.20 m/uL Hemoglobin 13.9 11.5 - 15.5 g/dL Hematocrit 41.4 36.0 - 46.0 % MCV 97.4 80.0 - 100.0 fL MCH 32.7 26.0 - 34.0 pg MCHC 33.6 30.5 - 36.0 g/dL RDW-CV 13.0 11.5 - 15.0 % Platelet Count 258 150 - 400 k/uL MPV 9.5 9.0 - 12.7 fL Neut% 60.9 % Abs Neut 4.02 1.45 - 7.50 k/uL Lymph% 28.1 % Abs Lymph 1.85 1.00 - 4.00 k/uL Alpine% 9.3 % Abs Alpine 0.61 <0.87 k/uL Eosin% 0.9 % Abs Eosin 0.06 <0.46 k/uL Baso% 0.5 % Abs Baso 0.03 <0.11 k/uL Immature Gran % 0.3 % Abs Immature Gran <0.03 <0.10 k/uL NRBC 0.0 /100 WBC Absolute nRBC <0.01 <0.01 k/uL Diff Type Auto COMP METABOLIC PANEL Result Value Ref Range Protein, Total 8.1 (H) 6.3 - 8.0 g/dL Albumin 4.8 3.9 - 4.9 g/dL Calcium, Total 10.2 8.5 - 10.2 mg/dL Bilirubin, Total 0.6 0.2 - 1.3 mg/dL Alkaline Phosphatase 45 34 - 123 U/L AST 36 (H) 13 - 35 U/L ALT 42 (H) 7 - 38 U/L Glucose 106 (H) 74 - 99 mg/dL BUN 9 7 - 21 mg/dL Creatinine 0.68 0.58 - 0.96 mg/dL Sodium 135 (L) 136 - 144 mmol/L Potassium 3.7 3.7 - 5.1 mmol/L Chloride 97 97 - 105 mmol/L CO2 24 22 - 30 mmol/L Anion Gap 14 9 - 18 mmol/L Estimated Glomerular Filtration Rate 112 >=60 mL/min/1.73m? LIPID PANEL BASIC Result Value Ref Range Cholesterol, Total 233 (H) <200 mg/dL Triglyceride 87 <150 mg/dL HDL Cholesterol 123 >39 mg/dL Non HDL Cholesterol 110 <130 mg/dL Fasting Time 12 hrs VLDL Cholesterol 17 <30 mg/dL TC:HDL Ratio 1.89 <5.10 LDL Cholesterol 93 <100 mg/dL LDL:HDL Ratio 0.76 <2.54 TOX SCREEN ROUT UR Result Value Ref Range Phencyclid (more content not included)...[facility]01-17-2023 History of Present illness Narrative* Morena Luna MD - 03/12/2022 8:39 AM EST Office follow up note: 41 year old female, presents today for follow up visit. Patient reports being compliant with medication(s) and no adverse reactions to medication(s). ADHD on adderrall Stable Doing well Able to focus Sleeping well. Body mass index is 34.05 kg/m . Occasional smoking Go to the gym 3 days a week. ALLERGIES Allergen Reactions Cat Hair Extract nasal congestion Cotton nasal congestion Dust nasal congestion Mold nasal congestion Current Outpatient Medications Medication Sig dextroamphetamine-amphetamine (ADDERALL) 5 mg tablet Take 1 tablet by mouth once daily. amphetamine-dextroamphetamine XR (ADDERALL XR) 30 mg 24 hr capsule Take 30 mg by mouth once daily. levonorgestrel (MIRENA) 20 mcg/24 hours (5 yrs) 52 mg IUD 1 Each by INTRAUTERINE route as directed. No current facility-administered medications for this visit. PAST MEDICAL HISTORY Diagnosis Date ADD (attention deficit disorder) Adjustment disorder with depressed mood Deep vein thromb-postpar PAST SURGICAL HISTORY Procedure Laterality Date APPENDECTOMY 97 DILATION & CURETTAGE DX&/THER NONOBSTETRIC 97 Dilation & curettage-mirena IUD -97 INSERTION OF IUD 02/22/2015, 10/28/2019 FAMILY HISTORY Problem Relation Age of Onset Colon Cancer Maternal Grandfather Heart Paternal Grandfather [place] Diabetes Paternal Aunt REVIEW OF SYSTEMS: HEENT: No changes in hearing or vision. No sinus pain or pressure, No trouble swallowing RESPIRATORY: Negative for cough, wheezing and shortness of breath CADIOVASCULAR: Negative for chest pain, leg swelling, palpitations, orthopnea GI: Negative for abdominal discomfort, hematochezia, melena, hematemesis, change in bowel habits, diarrhea, constipation, nausea or vomiting. : Negative for dysuria, frequency and incontinence MUSCULOSKELETAL: Negative for joint pain or swelling and muscle pain. HEMATOLOGY Negative for prolonged bleeding, bruising easily, and swollen nodes. ENDOCRINE: Negative for cold or heat intolerance, polyuria, polydipsia and goiter. NEURO: Negative for lightheadedness, dizziness, tremor, gait imbalance, syncope and seizures. PHYSICAL EXAM: VITALS: Blood pressure 144/88, pulse 95, temperature 36.1 C (97 F), temperature source Temporal, resp. rate 18, height 166.4 cm (5' 5.5), weight 94.3 kg (207 lb 12.8 oz), last menstrual period 10/15/2004, SpO2 99 %., Body mass index is 34.05 kg/m . GENERAL: Healthy, alert, no distress, cooperative SKIN: Skin color, texture, turgor normal. No rashes or lesions. HEENT: PERRL, EOMI, and normal dentition CARDIAC: Normal S1 and S2; no rubs, murmurs, or gallops LUNGS: Lungs clear to auscultation, Good diaphragmatic excursion ABDOMEN: Non distended, positive bowel sounds all 4 quadrants, soft non-tender, no organomegaly EXTREMITIES: Extremities normal, no deformities, edema, clubbing or skin discoloration. Good capillary refill., No ulcers NEURO: Gait normal. Reflexes normal and symmetric. Sensation grossly intact, Cranial nerves II-XII intact PULSES: 2+ radial LAB RESULTS: Results for orders placed or performed in visit on 08/13/21 CBC + DIFF Result Value Ref Range WBC 6.59 3.70 - 11.00 k/uL RBC 4.25 3.90 - 5.20 m/uL Hemoglobin 13.9 11.5 - 15.5 g/dL Hematocrit 41.4 36.0 - 46.0 % MCV 97.4 80.0 - 100.0 fL MCH 32.7 26.0 - 34.0 pg MCHC 33.6 30.5 - 36.0 g/dL RDW-CV 13.0 11.5 - 15.0 % Platelet Count 258 150 - 400 k/uL MPV 9.5 9.0 - 12.7 fL Neut% 60.9 % Abs Neut 4.02 1.45 - 7.50 k/uL Lymph% 28.1 % Abs Lymph 1.85 1.00 - 4.00 k/uL Alpine% 9.3 % Abs Alpine 0.61 <0.87 k/uL Eosin% 0.9 % Abs Eosin 0.06 <0.46 k/uL Baso% 0.5 % Abs Baso 0.03 <0.11 k/uL Immature Gran % 0.3 % Abs Immature Gran <0.03 <0.10 k/uL NRBC 0.0 /100 WBC Absolute nRBC <0.01 <0.01 k/uL Diff Type Auto COMP METABOLIC PANEL Result Value Ref Range Protein, Total 8.1 (H) 6.3 - 8.0 g/dL Albumin 4.8 3.9 - 4.9 g/dL Calcium, Total 10.2 8.5 - 10.2 mg/dL Bilirubin, Total 0.6 0.2 - 1.3 mg/dL Alkaline Phosphatase 45 34 - 123 U/L AST 36 (H) 13 - 35 U/L ALT 42 (H) 7 - 38 U/L Glucose 106 (H) 74 - 99 mg/dL BUN 9 7 - 21 mg/dL Creatinine 0.68 0.58 - 0.96 mg/dL Sodium 135 (L) 136 - 144 mmol/L Potassium 3.7 3.7 - 5.1 mmol/L Chloride 97 97 - 105 mmol/L CO2 24 22 - 30 mmol/L Anion Gap 14 9 - 18 mmol/L Estimated Glomerular Filtration Rate 112 >=60 mL/min/1.73m LIPID PANEL BASIC Result Value Ref Range Cholesterol, Total 233 (H) <200 mg/dL Triglyceride 87 <150 mg/dL HDL Cholesterol 123 >39 mg/dL Non HDL Cholesterol 110 <130 mg/dL Fasting Time 12 hrs VLDL Cholesterol 17 <30 mg/dL TC:HDL Ratio 1.89 <5.10 LDL Cholesterol 93 <100 mg/dL LDL:HDL Ratio 0.76 <2.54 TOX SCREEN ROUT UR Result Value Ref Range Phencyclidine Urine Negative Negative Benzodiazepines Urine Negative Negative Cocaine Urine Negative Negative Amphetamines Urine Preliminary positive (A) Negative Cannabinoids, Urine Negative Negative Opiates Urine Negative Negative Barbiturates Urine Negative Negative Ethanol, Urine <11 <11 mg/dL Oxycodone, Urine Negative Negative ASSESSMENT/PLAN: 1. Attention deficit disorder, unspecified hyperactivity presence - ICD9: 314.00, ICD10: F98.8 (primary diagnosis) - DEXTROAMPHETAMINE-AMPHETAMINE 5 MG TABLET - DEXTROAMPHETAMINE-AMPHETAMINE ER 30 MG 24HR CAPSULE,EXTEND RELEASE 2. Obesity, Class I, BMI 30-34.9 - ICD9: 278.00, ICD10: E66.9 Stable - Behavioral intervention Morena Luna MD documented in this encounterSt[facility]12[facility] Miscellaneous Notes* Telephone Encounter - Brittany Curry Ma - 02/07/2022 3:15 PM EST Last office visit: 11/19/21 F/u scheduled: 03/12/22 Last refilled on: Adderall 30 mg #30 on 01/18/22 Brittany Curry Ma * Telephone Encounter - Esperanza Lynn - 02/07/2022 1:16 PM EST Patient has been identified by name and date of : Yes Patient phones for refill(s): Requested Prescriptions Pending Prescriptions Disp Refills amphetamine-dextroamphetamine XR (ADDERALL XR) 30 mg 24 hr capsule 30 capsule 0 Sig: Take 1 capsule by mouth once daily for 30 days. Date of last office visit in primary care: 11/19/21 Last 2 Encounter Wt Readings: Date: Wt: 11/19/2021 91.4 kg (201 lb 6.4 oz) 08/13/2021 90.7 kg (200 lb) Previous labs/tests for medication: Not applicable Please advise. Thank you. Esperanza Lynn documented in this encounterSt[facility] Miscellaneous Notes* Telephone Encounter - Rosa M Landeros LPN - 12/07/2021 11:17 AM EDT Documents were faxed on 12/06/21. Chris sends fax that active authorization on file for 5mg until 11/28/22 and they request is being closed. Chris approves 30mg until 11/28/22. Patient was notified. * Telephone Encounter - Nanette Vargas LPN - 12/06/2021 9:55 AM EDT Chris sends new forms to be completed. Both forms completed, however they do require pcp signature. Placed in mailbox. Please fax once signed and route back to [facility] desk nurse. Silvia Vargas LPN * Telephone Encounter - Nanette Vargas LPN - 11/29/2021 4:14 PM EDT Chris sends request for clinical notes regarding meds. Faxed back to [phone] per request. Awaiting response. Silvia Vargas LPN * Telephone Encounter - Nanette Vargas LPN - 11/27/2021 1:35 PM EDT Prior Authorization has been completed online at [email or web address] for Adderall 5mg and 30mg, will await response. KAHN- [id number] Please keep encounter open until final decision has been received and documented from insurance company. Silvia Vargas LPN documented in this encounterSt. [facility]07[facility]22 Miscellaneous Notes* Letter - Mammography Coordinator - 09/17/2021 9:45 AM EDT September 17, 2021 PID: [id number] Kira Hoyt [address] [place] [address] Dear Ms. Hoyt, We are pleased to inform you that the results of your recent breast imaging exam on 09/17/2021 are normal. Early detection of cancer is very important. We also understand recommendations regarding breast cancer screening are controversial. Please discuss with your primary care provider which strategy is best for you and whether a mammogram is right for you. Your imaging studies and report will be [facility] on file [facility] as part of your permanent medical record and are available for your continuing care. Thank you for allowing us to help in meeting your health care needs. Sincerely, Dr. Lindsay Interpreting Radiologist [facility] (Normal over 40) documented in this encounterSt. Charles Hospital07-25-2022 History of Present illness Narrative* Melanie Shaw - 09/17/2021 8:10 AM EDT Radiology Service Progress Note PATIENT NAME: iKra Hoyt DATE OF SERVICE: September 17, 2021 TIME: 8:13 AM PATIENT IDENTITY VERIFICATION COMPLETED USING TWO (2) IDENTIFIERS: Name and Date of confirmedby patient verbally. FALL SCREENING: Has the patient had 2 falls in the last year or 1 fall with injury or currently using an Ambulatory Assistive Device (Walker, Cane, Wheelchair, Crutches, etc.)? No PATIENT GENDER DATA: Female. status: : No status: NO. PATIENT RELEVANT IMPLANT DATA REVIEWED: Not Applicable RADIOLOGY DEPARTMENT: Mammography PERIPHERAL IV DATA: Not applicable SIGNED BY: Melanie Shaw September 17, 2021 8:13 AM documented in this encounterSt. [facility] Hospital06-21-2022 Miscellaneous Notes* Telephone Encounter - Irish Broussard LPN - 08/14/2021 11:35 AM EDT Spoke with pt and information listed below given. Pt verbalizes understanding. Irish Broussard LPN * Telephone Encounter - Irish Broussard LPN - 08/14/2021 11:01 AM EDT Left a message for pt to call the office and ask to speak to a nurse for results. Labs are overall ok. Your hdl is very good which is why your total cholesterol is high and that is ok. Two liver enzymes are minimally up. Recheck labs in two weeks to make sure are ok Written by Godfrey Walsh MD on 08/14/2021 9:31 AM EDT documented in this encounterSt. [facility] Hospital06-20-2022 History of Present illness Narrative* Godfrey Walsh MD - 08/13/2021 11:28 AM EDT Patient presents with: Follow Up: 3 month follow up HPI: Patient presents today for office visit for follow up. Follow up for ADD: Doing well. oarrs done. Due for tox screen. No misuse or abuse. meds are still working well. They are helping her to focus and concentrate. No chest pain No shortness of breath. No edema. No palpitations. No weight loss. No abd pain or gi issues. Moods are doing well. MEDICATIONS: Current Outpatient Medications Medication Sig levonorgestrel (MIRENA) 20 mcg/24 hours (5 yrs) 52 mg IUD 1 Each by INTRAUTERINE route as directed. amphetamine-dextroamphetamine XR (ADDERALL XR) 30 mg 24 hr capsule Take 1 capsule by mouth once daily for 30 days. Do not start before June 30, 2021. amphetamine-dextroamphetamine XR (ADDERALL XR) 5 mg 24 hr capsule Take 1 capsule by mouth once daily for 30 days. In addition to 30 mg Do not start before June 30, 2021. No current facility-administered medications for this visit. ALLERGIES: ALLERGIES Allergen Reactions Cat Hair Extract nasal congestion Cotton nasal congestion Dust nasal congestion Mold nasal congestion PAST MEDICAL HISTORY Diagnosis Date ADD (attention deficit disorder) Adjustment disorder with depressed mood Deep vein thromb-postpar PAST SURGICAL HISTORY Procedure Laterality Date APPENDECTOMY 97 DILATION & CURETTAGE DX&/THER NONOBSTETRIC 97 Dilation & curettage-mirena IUD -97 INSERTION OF IUD 02/22/2015, 10/28/2019 FAMILY HISTORY Problem Relation Age of Onset Colon Cancer Maternal Grandfather Heart Paternal Grandfather [place] Diabetes Paternal Aunt Social History Tobacco Use Smoking status: Current Some Day Smoker Types: Cigarettes Smokeless tobacco: Never Used Vaping Use Vaping Use: Never used Substance Use Topics Alcohol use: Yes Comment: occasionally Drug use: No Reviewed current medications, allergies, past medical history, surgical history, family history andsocial history today. REVIEW OF SYSTEMS All other reviewed and negative other than HPI. HEALTH MAINTENANCE: Reviewed health maintenance issues today MAMMOGRAM due on 04/05/2020 VITALS: BP 132/82 Pulse 96 Wt 90.7 kg (200 lb) LMP 10/15/2004 BMI 32.78 kg/m Last 4 Encounter Wt Readings: Date: Wt: 08/13/2021 90.7 kg (200 lb) 05/01/2021 91.6 kg (202 lb) 01/30/2021 87.8 kg (193 lb 9.6 oz) 10/27/2020 82.6 kg (182 lb) PHYSICAL EXAMINATION: General appearance: Well appearing, alert, in no acute distress, well-hydrated, well nourished. Skin: Skin color, texture, turgor normal, no suspicious rashes or lesions Head: Normocephalic, no masses, lesions, tenderness or abnormalities Lungs: Lungs clear to auscultation. No wheezing, rhonchi, rales Heart: RRR without murmur, gallop, or rubs. No ectopy Abdomen: Normal abdominal exam, Abdomen soft, non-tender. Bowel sounds normal. No masses, organomegaly Extremities: No deformities, edema, skin discoloration, clubbing or cyanosis. Good capillary refill. Musculoskeletal: No joint swelling, deformity, or tenderness Peripheral pulses: Normal Neuro: Negative. ASSESSMENT/PLAN: 1. Attention deficit disorder, unspecified hyperactivity presence - ICD9: 314.00, ICD10: F98.8 (primary diagnosis) - Controlled prescriptions were written during the office visit. Sequential fill dates were listed on each. Patient is instructed that no additional scripts will be written until their next follow upvisit. - CBC + DIFF - COMP METABOLIC PANEL - DEXTROAMPHETAMINE-AMPHETAMINE ER 30 MG 24HR CAPSULE,EXTEND RELEASE - DEXTROAMPHETAMINE-AMPHETAMINE ER 30 MG 24HR CAPSULE,EXTEND RELEASE - DEXTROAMPHETAMINE-AMPHETAMINE ER 30 MG 24HR CAPSULE,EXTEND RELEASE - DEXTROAMPHETAMINE-AMPHETAMINE ER 5 MG 24HR CAPSULE,EXTEND RELEASE - DEXTROAMPHETAMINE-AMPHETAMINE ER 5 MG 24HR CAPSULE,EXTEND RELEASE - DEXTROAMPHETAMINE-AMPHETAMINE ER 5 MG 24HR CAPSULE,EXTEND RELEASE 2. Screening for lipid disorders - ICD9: V77.91, ICD10: Z13.220 - LIPID PANEL BASIC 3. Medication monitoring encounter - ICD9: V58.83, ICD10: Z51.81 - TOX SCREEN ROUT UR Godfrey Walsh RTO in three months and prn. documented in this encounterSt. [facility]12-07-2015 History of Past illness Narrative* Problem Noted Date Resolved Date Eyelid lesion 01/30/2015 11/19/2021 Cyst of right lower eyelid 01/23/201511/19 documented as of this encounter (statuses as of 12/07/2021) [facility] Narrative* Problem Noted Date Resolved Date Eyelid lesion 01/30/2015 11/19/2021 Cyst of right lower eyelid 01/23/201511/19 documented as of this encounter (statuses as of 02/08/2022) [facility] illness Narrative* Problem Noted Date Resolved Date Eyelid lesion 01/30/2015 11/19/2021 Cyst of right lower eyelid 01/23/201511/19 documented as of this encounter (statuses as of 03/12/2022) [facility] Narrative* Problem Noted Date Resolved Date Eyelid lesion 01/30/2015 11/19/2021 Cyst of right lower eyelid 01/23/201511/19 documented as of this encounter (statuses as of 05/17/2022) [facility] Narrative* Problem Noted Date Resolved Date Eyelid lesion 01/30/2015 11/19/2021 Cyst of right lower eyelid 01/23/201511/19 documented as of this encounter (statuses as of 06/14/2022) [facility] Narrative* Problem Noted Date Diagnosed Date Resolved Date Eyelid lesion 01/30/2015 11/19/2021 Cyst of right lower eyelid 01/23/2015 0 11/19/2021 documented as of this encounter (statuses as of 09/25/2022) [facility] Narrative* Problem Noted Date Diagnosed Date Resolved Date Eyelid lesion 01/30/2015 11/19/2021 Cyst of right lower eyelid 01/23/2015 0 11/19/2021 documented as of this encounter (statuses as of 10/25/2022) [facility] Narrative* Problem Noted Date Diagnosed Date Resolved Date Eyelid lesion 01/30/2015 11/19/2021 Cyst of right lower eyelid 01/23/2015 0 11/19/2021 documented as of this encounter (statuses as of 10/29/2022) [facility] Narrative* Problem Noted Date Diagnosed Date Resolved Date Eyelid lesion 01/30/2015 11/19/2021 Cyst of right lower eyelid 01/23/2015 0 11/19/2021 documented as of this encounter (statuses as of 11/14/2022) [facility] Narrative* Problem Noted Date Diagnosed Date Resolved Date Eyelid lesion 01/30/2015 11/19/2021 Cyst of right lower eyelid 01/23/2015 0 11/19/2021 documented as of this encounter (statuses as of 12/09/2022) [facility] Narrative* Problem Noted Date Diagnosed Date Resolved Date Eyelid lesion 01/30/2015 11/19/2021 Cyst of right lower eyelid 01/23/2015 0 11/19/2021 documented as of this encounter (statuses as of 01/03/2023) [facility] Narrative* Problem Noted Date Diagnosed Date Resolved Date Eyelid lesion 01/30/2015 11/19/2021 Cyst of right lower eyelid 01/23/2015 0 11/19/2021 documented as of this encounter (statuses as of 01/07/2023) [facility] Narrative* Problem Noted Date Diagnosed Date Resolved Date Eyelid lesion 01/30/2015 11/19/2021 Cyst of right lower eyelid 01/23/2015 0 11/19/2021 documented as of this encounter (statuses as of 03/28/2023) [facility] Narrative* Problem Noted Date Diagnosed Date Resolved Date Eyelid lesion 01/30/2015 11/19/2021 Cyst of right lower eyelid 01/23/2015 0 11/19/2021 documented as of this encounter (statuses as of 05/01/2023) [facility] note* Diagnosis Attention deficit disorder, unspecified hyperactivity presence- Primary Screening for lipid disorders Medication monitoring encounter Encounter for therapeutic drug monitoring Screening breast examination Breast screening, unspecified documented in this encounter [facility] note* Diagnosis Elevated liver enzymes- Primary Other nonspecific abnormal serum enzyme levels documented in this encounter [facility] note* Diagnosis Screening breast examination Breast screening, unspecified documented in this encounter [facility] note* Diagnosis Attention deficit disorder, unspecified hyperactivity presence documented in this encounter [facility] note* Diagnosis Attention deficit disorder, unspecified hyperactivity presence- Primary Obesity, Class I, BMI 30-34.9 Obesity, unspecified documented in this encounter [facility] note* Diagnosis Attention deficit disorder, unspecified hyperactivity presence documented in this encounter [facility] note* Diagnosis Attention deficit disorder, unspecified hyperactivity presence- Primary Laryngitis Acute laryngitis, without mention of obstruction documented in this encounter [facility] note* Diagnosis Encounter for screening mammogram for breast cancer- Primary Attention deficit disorder, unspecified hyperactivity presence Screening for lipid disorders documented in this encounter [facility] note* Diagnosis Attention deficit disorder, unspecified hyperactivity presence documented in this encounter [facility] note* Diagnosis Attention deficit disorder, unspecified hyperactivity presence documented in this encounter [facility] note* Diagnosis Attention deficit disorder, unspecified hyperactivity presence- Primary documented in this encounter [facility] note* Diagnosis Well adult exam- Primary Routine general medical examination at a health care facility Attention deficit disorder, unspecified hyperactivity presence Screening breast examination Breast screening, unspecified Onychomycosis Dermatophytosis of nail documented in this encounter [facility] note* Diagnosis Attention deficit disorder, unspecified hyperactivity presence documented in this encounter [facility] note* Diagnosis Attention deficit disorder, unspecified hyperactivity presence- Primary [facility] Diagnosis Attention deficit disorder, unspecified hyperactivity presence- Primary documented in this encounter [facility] note* Diagnosis Encounter for screening mammogram for breast cancer documented in this encounter [facility] Discharge instructionsAmbulatory Orders* Psychiatry Location: None Selected [facility] Work Phone: Progress note Author Candice Pepe [facility] Note Date/Time December 07, 2024 1 0:38am [facility] [address] [place] [address] [place] [address] OFFICE VISIT Date of Service: 12/07/24 MR#: [id number] Acct: [id number] Name: KIRA HOYT Rep #: [id number] : 1980 Provider: Dr. Star Pepe MD Age/Sex: 44/F Location: [facility] Status: Signed Intake Vital Signs 08/31/24 10:13 12/07/24 10:08 Height 5 ft 7 in 5 ft 7 in Weight: 196 lb 6 oz BMI 30.7 BP 124/70 H Blood Pressure Location Lt brachial Position Sitting Respiration 16 Pulse 96 Pulse Source Monitor Temp 97.8 F Temp Source Temporal Pulse Oximetry (%) 98 Oxygen Delivery Method room air Intake Visit Reasons: 3 M FU Chief Complaint: fu Fitting Room Supervisor Required: No Accompanied by: Self Is patient in pain?: No Allergies No Known Allergies Allergy (Verified 12/07/24 10:08) Medications ?Medication ?Instructions ?Recorded ?Confirmed ?Type multivitamin 1 tab PO QAM 03/09/24 History levonorgestrel (Mirena) 1 device intrauterine DAILY 04/05/24 12/07/24 History medical marajuana inhalation PRN 08/31/2411/24 History cyclobenzaprine 5 mg tablet 5 mg PO BID PRN pain #10 t abs 12/07/24 12/07/24 Rx dextroamphetamine-amphetamine 5 mg 1 tab PO QDAY PRN A DHD 30 days #30 12/07/24 12/07/24 Rx tablet tabs dextroamphetamine-amphetamine ER 1 cap PO QDAY 30 days #30 caps 12/07/24 12/07/24 Rx 30 mg 24hr capsule,extend release Nurse's Note: question on medication interaction [facility] History Marijuana use Alcohol use Syncope Smoker Insomnia Family hx of colon cancer Patellofemoral pain syndrome of both knees ADHD Surgical History S/P colonoscopy Hx of dilation and curettage S/P appendectomy Family History Aunt Diabetes Uncle Alzheimer dementia Lung cancer Grandfather Colon cancer Alzheimer dementia Sister Kidney disease Brother Colon polyps Mother Colon polyps Father Afib Social History adopted: No household members: significant other number of children: 1 current occupational status: employed 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 pets and animals: Yes (1) pets and animals: dog(s) history of recent travel: No sexually active: Yes Smoking Status: Current some day smoker tobacco type: cigarettes Tobacco: How many years used: 20 quit status: not considering quitting alcohol intake: current alcohol intake frequency: a few times a week Alcohol type: beer and other details: <3 in 1 sitting typicall occasionally on a weekend will have >3 substance use type: marijuana caffeine: No during the past year weight has: remained stable what type of physical activity do you participate in: walking and weight training frequency: 1-2 times per week seatbelt use: always do you feel safe at home: Yes additional social history: S/O Rich HPI HPI Chief Complaint: fu Details: KIRA HOYT, is a 44 F who presents to the office today for a follow up. Sheis due for some routine blood work and is up to date on her screening. She previously declined any further COVID vaccines. She never got her tetanus up todate and she doesn't want a flu shot. She doesn't smoke and doesn't need any refills. She reports she is eating healthy and staying active. The patient has a history of ADHD, having been diagnosed in her early 30s. She reports she was diagnosed by the [facility] in [place] who did her initial assessment through a psychiatrist. She reportsshe was previously on vyvanse which worked well, but she wasn't able to afford it, so she was changed to adderall. She has been maintained on that ever since. At her last office visit, she expressed a desire to go back on the vyvanse. She was referred to psychiatry, but reports that she has had trouble getting it scheduled. She does still plan on doing that. The patient hasn't had any further syncopal episodes since she was last seen. The patient reports she woke up on Friday morning and wasn't able to move it. She reports it is a little better since, but she continues to have restricted movement. She states she she did take some ibuprofen the first day. She reports it helped a little, but not much. She reports she wasn't able to go to work yesterday. She went to the massage therapist in the past and that did helppreviously. She rates it 5/10 currently. She also reports she is going through duran-menopause. She reports she has noticed problems with energy, brain fog and weight gain. She does see OBGYN, but reports she didn't really have symptoms at that time of her last office visit. She has no other questions or concerns at this time. ROS Const Constitutional: Positive for fatigue; No body ache, excessive sweating, fever(s), frequent falls, headache(s), snoring, weakness, weight change, sleep problems or change in appetite Eyes Eyes: No blurry vision, change in vision, eye pain or Light sensitivity ENT ENT: Positive for neck pain; No abnormal hearing, ear or mastoid pain, tinnitus, nasal congestion, headache(s) or sore throat Resp Respiratory: No cough, shortness of breath, snoring or wheezing Cardio Cardiology: No chest pain at rest, chest pain with exertion, excessive sweating,shortness of breath, dyspnea on exertion, lightheadedness, orthopnea, palpitations or other (no leg swelling) Gastro GI: No abdominal pain, change in bowel habits, constipation, cramping, diarrhea,nausea/dyspepsia or vomiting Genitourinary-Female: No difficulty urinating, burning urination, painful urination, urinary incontinence, urinary frequency, blood in urine, abnormal periods or pelvic pain Musc Musculoskeletal: Positive for neck pain; No abnormal gait, joint pain, back pain, limited range of motion, numbness, stiffness, tingling or Arthritis Skin Skin: No dry skin, redness, lesions, itchy eyes, rash or wounds Neuro Neurology: No abnormal gait, abnormal hearing, abnormal speech, dizziness, weakness, frequent falls, headache(s), memory loss, numbness, tingling or fainting Psych Psychiatric: No anxiety, No change in appetite, No depression, Positive for difficulty concentrating, No memory loss and No Thoughts of harming yourself/Others Endo Endocrine: Positive for fatigue; No cold intolerance, excessive sweating, flushing, heat intolerance, increased thirst/drinking, increased hunger or weight change Aller/Imm Allergy/Immunologic: No itchy eyes, seasonal allergy symptoms, hives or wheezing Kevin/Lymp Hematologic/Lymphatic: No easy bleeding, easy bruising or enlarged lymph nodes Exam Const General: cooperative, healthy appearing, no acute distress, well developed, not diaphoretic and not ill appearing Nutritional Appearance: well nourished Orientation: alert and oriented x3 Limitations: mental status not altered [facility] Head: normal to inspection, normocephalic and atraumatic Ears: hearing grossly normal bilaterally Face and sinus: normal facial exam Mouth: oral mucosae normal and moist mucous membranes Teeth and gingiva: dentition normal Throat: posterior oropharynx normal Eyes Conjunctivae: conjunctivae normal Sclera: sclerae normal Pupils: PERRL Chest Chest palpation & inspection: normal inspection of the chest Resp Effort & Inspection: normal respiratory effort, able to speak in complete sentences, no audible wheezes and no cough Auscultation: Bilateral: Clear to Auscultation Cardio Rate: regular rate Rhythm: regular rhythm Heart Sounds: S1 normal, S2 normal and no murmurs GI Inspection: non-distended Auscultation: normal bowel sounds Palpation: soft, no hepatosplenomegaly and nontender Musc Cervical Spine: cervical ROM normal; No Lhermitte's sign positive, cervical muscular tenderness, cervical spinal tenderness or Spurling sign Skin General: no rashes or lesions noted and dry skin Wounds: no wounds Neuro General: patient alert and patient oriented x3 Cranial Nerves: PERRL Cognition: normal cognition Speech: speech normal Motor: strength 5/5 throughout Extrem General: normal to inspection and no edema Psych Appearance: grossly normal Mental Status: mental status grossly normal Affect: normal affect Attitude: cooperative Coding Level of Care Code Off vis,est,level 4 Diagnoses Attention deficit hyperactivity disorder (ADHD), unspecified ADHD type F90.9 Attention deficit-hyperactivity disorder type: unspecified Neck pain M54.2 Perimenopausal symptoms N95.1 IUD (intrauterine device) in place Z97.5 Enlarged thyroid E04.9 Mixed hyperlipidemia E78.2 Influenza vaccination declined Z28.21 Time Spent (min) 34 Assessment and Plan Assessment and Plan (1) ADHD: Status: Acute Qualifiers: Attention deficit-hyperactivity disorder type: unspecified Qualified Code(s): F90.9 - Attention-deficit hyperactivity disorder, unspecified type Comment: ON MED Plan: Patient reports she does well on her medications, but feels that the vyvanse worked better for her. She does still plan on seeing psychiatry to further address this. Patient provided the phone number to call and scheduled. In the meantime, will continue current management. OARRS reviewed and appears appropriate. Patient inquired about taking sudafed for allergy symptoms while on her ADHD medications. Counseled that any use would need to be done with caution and encouraged her to try alternatives like anti-histamines or nasal sprays first. She was in agreement. (2) Neck pain: Plan: No significant findings on exam. Likely a muscle strain. Work excuse provided for yesterday. Will try a PRN muscle relaxer and monitor. Encouraged her to call if her symptoms persist or worsen. She was in agreement. (3) Perimenopausal symptoms: Plan: The patient has several symptoms that could suggest perimenopause including brain fog, fatigue, hot flashes and low energy. Will get some routine labs to rule out other causes. Discussed that there are different treatment options including HRT, SSRIs or veozah specifically for the hot flashes, however, with her IUD in place, I did recommend discussing with her OBGYN first. She voiced understanding and was in agreement. (4) IUD (intrauterine device) in place: Plan: Patient sees OBGYN. Will follow up on their findings and recommendations. (5) Enlarged thyroid: Plan: Reviewed her thyroid US with her which confirmed a slightly enlarged thyroid with cysts and recommended a one year follow up. Will get a TSH with her upcoming labs. She was in agreement. (6) Mixed hyperlipidemia: Plan: Patient's cholesterol was slightly elevated when last checked. Will repeat for monitoring. (7) Influenza vaccination declined: Plan: The patient doesn't want a flu shot. The patient is here for a follow up. Plan as above. Medications reviewed with the patient. Routine follow up scheduled. The patient was instructed to call with any concerns or questions before then and they were in agreement. I spent a total of 34 minutes on the date of the service which included preparing to see the patient, [id number] patient care, completing clinical documentation, obtaining and/or reviewing separately obtained history. This excludes separately reportable services. Orders: Orders CBC W/Diff, Automated Today F90.9 - Attention-deficit hyperactivity disorder, unspecified type Comprehensive Metabolic Profil Today F90.9 - Attention-deficit hyperactivity disorder, unspecified type Lipid Profile Today E78.2 - Mixed hyperlipidemia Vitamin D,25 Hydroxy Today R53.83 - Other fatigue Vitamin B12 Today R53.83 - Other fatigue Thyroid Stim Hormone (TSH) Today E04.9 - Nontoxic goiter, unspecified Medications: New cyclobenzaprine 5 mg PO BID PRN 10 tabs 0RF pain Refilled dextroamphetamine-amphetamine 30 mg ER 1 cap PO QDAY 30 caps 0RF 30 days F90.9 - Attention-deficit hyperactivity disorder, unspecified type dextroamphetamine-amphetamine 5 mg 1 TAB PO QDAY PRN 30 tabs 0RF ADHD 30 days F90.9 - Attention-deficit hyperactivity disorder, unspecified type Plan Details Follow Up: 3 Months 12/07/24 1248 <Electronically signed by Candice bills MD> Date _ Candice Pepe MD Cosigner Signature: Date (if applicable) CC: ~ [employer] Work Phone: Reason for referral (narrative)* Diagnostic Procedure Only (Routine) - Authorized Specialty Diagnoses / Procedures Referred By Sarita cruz Referred To Contact [facility] Diagnoses Screening breast examination Procedures RUBEN SCREENING SCREENING MAMMOGRAPHY BI 2-VIEW BREAST INC CAD Godfrey Walsh MD [address] [place] [address] [facility] [address] [place] [address] Referral ID Status Reason Start Date Expiration Date Visits Requested Visits Authorized [id number] Authorized Auto-Generat ed Referral 09/17/2021 02/23/2022 1 1 [facility] for referral (narrative)* Diagnostic Procedure Only (Routine) - Closed Specialty Diagnoses / Procedures Referred By Sarita cruz Referred To Contact [facility] Diagnoses Screening breast examination Procedures RUBEN SCREENING SCREENING MAMMOGRAPHY BI 2-VIEW BREAST INC Godfrey Lake MD [address] [place] [address] [facility] [address] [place] [address] Referral ID Status Reason Start Date Expiration Date V isits Requested Visits Authorized [id number] Closed Auto-Generate d Referral 09/17/2021 02/23/2022 1 1 T [facility] for referral (narrative)* Diagnostic Procedure Only (Routine) - Pending Review Specialty Diagnoses / Procedures Referred By Sarita cruz Referred To Contact [facility] Diagnoses Encounter for screening mammogram for breast cancer Procedures RUBEN SCREENING SCREENING MAMMOGRAPHY BI 2-VIEW BREAST INC Morena Howard MD [address] [place] [address] [facility] [address] [place] [address] Referral ID Status Reason Start Date Expiration Date Visits Requested Visits Authorized [id number] Pending Review Auto-Generat ed Referral 09/24/2022 10/24/2023 1 1 [facility] for referral (narrative)* Diagnostic Procedure Only (Routine) - Pending Review Specialty Diagnoses / Procedures Referred By Sarita cruz Referred To Contact [facility] Diagnoses Encounter for screening mammogram for breast cancer Procedures RUBEN SCREENING W JAIR SCREENING DIGITAL BREAST TOMOSYNTHESIS BI SCREENING MAMMOGRAPHY BI 2-VIEW BREAST INC Godfrey Lake MD [address] [place] [address] [facility] [address] [place] [address] Referral ID Status Reason Start Date Expiration Date Visits Requested Visits Authorized [id number] Pending Review Auto-Generat ed Referral 03/02/2024 04/01/[address] [facility]No reason for referral information availableWSumma [facility] Work Phone: [employer] for visit Narrative* Diagnostic Procedure Only (Routine) - Closed Specialty Diagnoses / Procedures Referred By Contac t Referred To Contact [facility] Diagnoses Screening breast examination Procedures RUBEN SCREENING SCREENING MAMMOGRAPHY BI 2-VIEW BREAST INC CAD Godfrey Walsh MD [address] [place] [address] [facility] [address] [place] [address] Referral ID Status Reason Start Date Expiration Date V isits Requested Visits Authorized [id number] Closed Auto-Generate d Referral 09/17/2021 02/23/[address] [facility] Reason for Referral Specialty Diagnoses / Procedures Referred By Contac t Referred To Contact Diagnoses Attention deficit disorder, unspecified hyperactivity presence Morena Luna MD [address] [place] [address] Referral ID Status Reason Start Date Expiration Date V isits Requested Visits Authorized [id number] Pending Review 1 1 Referral ID Status Reason Start Date Expiration Date V isits Requested Visits Authorized [id number] Pending Review 1 1 Specialty Diagnoses / Procedures Referred By Contac t Referred To Contact Podiatry Diagnoses Onychomycosis Procedures CONSULT TO PODIATRY OFFICE/OUTPATIENT [facility] 60 MINUTES Godfrey Walsh MD [address] [place] [address] Referral ID Status Reason Start Date Expiration Date Visits Requested Visits Authorized [id number] Pending Review PCP Requested Referral 03/28/2023 03/27/2024 1 1 Specialty Diagnoses / Procedures Referred By Contac t Referred To Contact [facility] Diagnoses Screening breast examination Procedures RUBEN SCREENING W JAIR SCREENING DIGITAL BREAST TOMOSYNTHESIS BI SCREENING MAMMOGRAPHY BI 2-VIEW BREAST INC CAD Godfrey Walsh MD [address] [place] [address] [facility] [address] [place] [address] Referral ID Status Reason Start Date Expiration Date Visits Requested Visits Authorized [id number] Pending Review Auto-Generat ed Referral 03/28/2023 04/26/2024 1 1 Summary Purpose Family History Relationship Condition Age at Onset Recorded Date/T rowan aunt Diabetes mellitus Unknown uncle Malignant neoplasm Unknown Alzheimer's dementia Unknown grandfather Malignant neoplasm of colon Unknown sister Kidney disorder Unknown brother Polyp of colon Unknown mother Polyp of colon Unknown Relationship Condition Age at Onset Recorded Date/T rowan aunt Diabetes mellitus Unknown uncle Alzheimer's dementia Unknown Malignant neoplasm of lung Unknown grandfather Malignant neoplasm of colon Unknown Alzheimer's dementia Unknown sister Kidney disorder Unknown brother Polyp of colon Unknown mother Polyp of colon Unknown father Atrial fibrillation Unknown Advance Directives Advance Directive Response Recorded Date/ Time Living Will No April 05, 2 025 12:57pm Do you have a Healthcare Power of Pharmaceutical Officer? 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) June 02, 2024 6:51 am Reason for Visit Admit Date ADHD March 11, 2024 4 :26pm Insomnia March 11, 2024 4 :26pm Medication monitoring encounter March 11, 2024 4:26pm Colon cancer screening April 06 9:03am ADHD May 25, 2024 1:44 pm Encounter for routine gynecological exam ination June 02, 2024 6:51am Chief Complaint Admit Date ACUTE 3 M FU-OK PER TA May 25, 2024 1:44pm Annual (DIRECTOR CARDIOLOGY) June 02, 2024 6:51 am [employer] RE-EST-DR FELICIANO PATIENT August 31 9:55am Reason for Visit Admit Date ADHD May 25, 2024 1:44 pm Encounter for routine gynecological exam ination June 02, 2024 6:51am ADHD August 31, 2024 9:55a m Establishing care with new doctorvinny for August 31, 2024 9:55am IUD (intrauterine device) in place August 31, 2024 9:55am Goiter August 31, 2024 9:55a m Chief Complaint Admit Date Annual (DIRECTOR CARDIOLOGY) June 02, 2024 6:51 am [employer] RE-EST-DR FELICIANO PATIENT August 31 9:55am Nontoxic goiter, unspecified September 21, 2024 11:54am Reason for Visit Admit Date Encounter for routine gynecological exam ination June 02, 2024 6:51am ADHD August 31, 2024 9:55a m Screening for depression August 31, 2024 9:55am Immunization due August 31, 2024 9:55a m Establishing care with new doctorvinny nter for August 31, 2024 9:55am IUD (intrauterine device) in place August 31, 2024 9:55am Enlarged thyroid August 31, 2024 9:55a m Syncopal episodes August 31, 2024 9:55a m Chief Complaint Admit Date PRODUCTION INTERNSH[employer] RE-EST-DR FELICIANO PATIENT August 31 9:55am Nontoxic goiter, unspecified September 21, 2024 11:54am 3 M FU December 07, 2024 1 0:00am Reason for Visit Admit Date ADHD August 31, 2024 9:55a m Screening for depression August 31, 2024 9:55am Immunization due August 31, 2024 9:55a m Establishing care with new vinny olivares nter for August 31, 2024 9:55am IUD (intrauterine device) in place August 31, 2024 9:55am Enlarged thyroid August 31, 2024 9:55a m Syncopal episodes August 31, 2024 9:55a m ADHD December 07, 2024 1 0:00am Perimenopausal symptoms December 07 10:00am Influenza vaccination declined November 242024 10:00am IUD (intrauterine device) in place Octob 2024 10:00am Enlarged thyroid December 07, 2024 1 0:00am Mixed hyperlipidemia December 07, 2024 10:00am Neck pain December 07, 2024 1 0:00am Additional Source Comments Source Comments (unrecognize d section and content) In the event this informatio n is protected by the [facility] Confidentiality of Alcohol and Drug Abuse Patient Records regulations: The Federal rules restrict any use of the information to criminally investigate or prosecute any alcohol or drug abuse patient.[facility] the event this information is protected by the Federal Confidentiality of Alcohol and Drug Abuse Patient Records regulations: The Federal rules restrict any use of the information to criminally investigate or prosecute any alcohol or drug abuse patient.[facility] the event this information is protected by the Federal Confidentiality of Alcohol and Drug Abuse Patient Records regulations: The Federal rules restrict any use of the information to criminally investigate or prosecute any alcohol or drug abuse patient.[facility] the event this information is protected by the Federal Confidentiality of Alcohol and Drug Abuse Patient Records regulations: The Federal rules restrict any use of the information to criminally investigate or prosecute any alcohol or drug abuse patient.[facility] ClinicIn the event this information is protected by the Federal Confidentiality of Alcohol and Drug Abuse Patient Records regulations: The Federal rules restrict any use of the information to criminally investigate or prosecute any alcohol or drug abuse patient.[facility] the event this information is protected by the Federal Confidentiality of Alcohol and Drug Abuse Patient Records regulations: The Federal rules restrict any use of the information to criminally investigate or prosecute any alcohol or drug abuse patient.[facility] the event this information is protected by the Federal Confidentiality of Alcohol and Drug Abuse Patient Records regulations: The Federal rules restrict any use of the information to criminally investigate or prosecute any alcohol or drug abuse patient.[facility] the event this information is protected by the Federal Confidentiality of Alcohol and Drug Abuse Patient Records regulations: The Federal rules restrict any use of the information to criminally investigate or prosecute any alcohol or drug abuse patient.[facility] the event this information is protected by the Federal Confidentiality of Alcohol and Drug Abuse Patient Records regulations: The Federal rules restrict any use of the information to criminally investigate or prosecute any alcohol or drug abuse patient.[facility] the event this information is protected by the Federal Confidentiality of Alcohol and Drug Abuse Patient Records regulations: The Federal rules restrict any use of the information to criminally investigate or prosecute any alcohol or drug abuse patient.[facility] the event this information is protected by the Federal Confidentiality of Alcohol and Drug Abuse Patient Records regulations: The Federal rules restrict any use of the information to criminally investigate or prosecute any alcohol or drug abuse patient.[facility] the event this information is protected by the Federal Confidentiality of Alcohol and Drug Abuse Patient Records regulations: The Federal rules restrict any use of the information to criminally investigate or prosecute any alcohol or drug abuse patient.[facility] the event this information is protected by the Federal Confidentiality of Alcohol and Drug Abuse Patient Records regulations: The Federal rules restrict any use of the information to criminally investigate or prosecute any alcohol or drug abuse patient.[facility] the event this information is protected by the Federal Confidentiality of Alcohol and Drug Abuse Patient Records regulations: The Federal rules restrict any use of the information to criminally investigate or prosecute any alcohol or drug abuse patient.[facility] the event this information is protected by the Federal Confidentiality of Alcohol and Drug Abuse Patient Records regulations: The Federal rules restrict any use of the information to criminally investigate or prosecute any alcohol or drug abuse patient.[facility] the event this information is protected by the Federal Confidentiality of Alcohol and Drug Abuse Patient Records regulations: The Federal rules restrict any use of the information to criminally investigate or prosecute any alcohol or drug abuse patient.[facility] the event this information is protected by the Federal Confidentiality of Alcohol and Drug Abuse Patient Records regulations: The Federal rules restrict any use of the information to criminally investigate or prosecute any alcohol or drug abuse patient.[facility] the event this information is protected by the Federal Confidentiality of Alcohol and Drug Abuse Patient Records regulations: The Federal rules restrict any use of the information to criminally investigate or prosecute any alcohol or drug abuse patient.[facility] the event this information is protected by the Federal Confidentiality of Alcohol and Drug Abuse Patient Records regulations: The Federal rules restrict any use of the information to criminally investigate or prosecute any alcohol or drug abuse patient.[facility] the event this information is protected by the Federal Confidentiality of Alcohol and Drug Abuse Patient Records regulations: The Federal rules restrict any use of the information to criminally investigate or prosecute any alcohol or drug abuse patient.[facility] the event this information is protected by the Federal Confidentiality of Alcohol and Drug Abuse Patient Records regulations: The Federal rules restrict any use of the information to criminally investigate or prosecute any alcohol or drug abuse patient.[facility] the event this information is protected by the Federal Confidentiality of Alcohol and Drug Abuse Patient Records regulations: The Federal rules restrict any use of the information to criminally investigate or prosecute any alcohol or drug abuse patient.[facility] Reason for Visit (unrecogniz ed section and content) Reason Comments Follow Up Specialty Diagnoses / Procedures Referred By Contherminia t Referred To Contact Family Medicine / FAMILY MEDICINE Diagnoses Well adult exam Attention deficit disorder, unspecified hyperactivity presence Screening breast examination Onychomycosis Prescription refill Procedures OFFICE/OUTPATIENT ESTABLISHED MOD MDM 30 MIN VIDEO PRIMARY EST Self Godfrey Walsh MD [address] [place] [address] Referral ID Status Reason Start Date Expiration Date Visits Requested Visits Authorized [id number] Denied OON Notification Letter Clearance Not Met - Admin/Doorshaker/D irector Advise to Postpone/Resched ule or Not Proceed 06/18/2023 09/16/2023 1 0 Reason Comments Follow Up 3 month follow up Specialty Diagnoses / Procedures Referred By Sarita t Referred To Contact Family Practice / FAMILY MEDICINE Diagnoses Follow-up exam 3 Month follow-up, med refill Procedures OFFICE/OUTPATIENT ESTABLISHED MOD MDM 30-39 MIN 4C EST Godfrey Walsh MD [address] [place] [address] Godfrey Walsh MD [address] [place] [address] Referral ID Status Reason Start Date Expiration Date Visits Re quested Visits Authorized [id number] Closed 08/13/2021 02/23/2022 1 1 Reason Comments Orders results Reason Comments Insurance Authorization Reason Onset Date Comments Refill Request 02/07/2022 Reason Comments Establish Care Kira is here for a new patient consultation and for medication refills. Specialty Diagnoses / Procedures Referred By Sarita cruz Referred To Contact FAMILY MEDICINE Diagnoses Establish Care Procedures NEW PATIENT VISIT LEVEL 1 Self [facility] [address] [employer] [facility] [address] [place] [address] Referral ID Status Reason Start Date Expiration Date Visits Requested Visits Authorized [id number] Outside PCP OON/Self Pay Override 2 05/08/2022 1 1 Reason Onset Date Comments Refill Request 05/17/2022 Reason Comments Behavioral Problem ADD Reason Comments Follow Up Medication refill Reason Onset Date Comments Refill Request 10/25/2022 Reason Comments APPROVED, amphetamine-dextroamphetamine XR 5 & 30 mg Reason Onset Date Comments Refill Request 12/03/2022 Reason Comments Physical Specialty Diagnoses / Procedures Referred By Sarita t Referred To Contact Family Medicine / FAMILY MEDICINE Diagnoses Prescription and wellness check Procedures MYC OFFICE VISIT Self Godfrey Walsh MD [address] [place] [address] Referral ID Status Reason Start Date Expiration Date Visits Requested Visits Authorized [id number] Closed OON Notification Letter Clearance Not Met - Admin/Doorshaker/D irector Advise to Postpone/Resched ule or Not Proceed 03/28/2023 06/26/2023 1 0 Reason Onset Date Comments Refill Request 05/01/2023 Reason Comments Follow Up ADHD Specialty Diagnoses / Procedures Referred By Sarita cruz Referred To Contact Family Medicine / FAMILY MEDICINE Diagnoses Attention deficit disorder Refill Rx Procedures VIDEO PRIMARY EST Self Godfrey Walsh MD [address] [place] [address] Referral ID Status Reason Start Date Expiration Date Visits Requested Visits Authorized [id number] Waiting for Response OON Notification Letter Clearance Not Met - Admin/Doorshaker/ Director Advise to Postpone/Resche dule or Not Proceed Patient cleared - OON Required Payment Collected 4 12/15/2023 1 1 Care Teams (unrecognized sec tion and content) Insights Strategist Relationship Specialty Start Date End Date Godfrey Walsh MD [address] [place], [place] [id number] PCP - General Family Practice 01/23/15 Insights Strategist Relationship Specialty Start Date End Date Godfrey Walsh MD [address] [place], [place] [address] PCP - General Family Practice 01/23/15 Insights Strategist Relationship Specialty Start Date End Date Godfrey Walsh MD [address] [place], [place] [address] PCP - General Family Practice 01/23/15 Insights Strategist Relationship Specialty Start Date End Date Godfrey Walsh MD [address] [place] [address] PCP - General Family Practice 01/23/15 Insights Strategist Relationship Specialty Start Date End Date Godfrey Walsh MD [facility] [place], [place] [address] PCP - General Family Medicine 01/23/15 Insights Strategist Relationship Specialty [place] [address] [place] [id number] PCP - General Family Medicine 01/23/15 Insights Strategist Relationship Specialty Start Date End Date Morena Luna MD [address] [place] [address] PCP - General Family Medicine 03/12/22 Insights Strategist Relationship Specialty Start Date End Date Morena Luna MD [address] [place] [address] PCP - General Family Medicine 03/12/22 Insights Strategist Relationship Specialty Start Date End Date Morena Luna MD [address] [place] [address] PCP - General Family Medicine 03/12/22 Insights Strategist Relationship Specialty Start Date End Date Morena Luna MD [address] [place] [address] PCP - General Family Medicine 03/12/22 Insights Strategist Relationship Specialty Start Date End Date Morena Luna MD [address] [place] [address] PCP - General Family Medicine 03/12/22 Insights Strategist Relationship Specialty Start Date End Date Niranjan Walter [address] [place] [address] PCP - General 12/18/01 10/05/12 PcpSirena APRN PCP - General 10/06/12 04/14/13 Niranjan Walter [address] [place] [address] PCP - General 04/15/13 01/22/15 Godfrey Walsh MD [address] [place] [address] PCP - General Family Medicine 01/23/15 03/11/22 Morena Luna MD [address] [place] [address] PCP - General Family Medicine 03/12/22 Insights Strategist Relationship Specialty Start Date End Date Morena Luna MD [address] [place] [address] PCP - General Family Medicine 03/12/22 Insights Strategist Relationship Specialty Start Date End Date Morena Luna MD [address] [place] [address] PCP - General Family Medicine 03/12/22 Insights Strategist Relationship Specialty Start Date End Date Godfrey Walsh MD [address] [place] [address] PCP - General Family Medicine 03/28/23 Insights Strategist Relationship Specialty Start Date End Date Godfrey Walsh MD [address] [place] [address] PCP - General Family Medicine 03/28/23 Insights Strategist Relationship Specialty Start Date End Date Godfrey Walsh MD [address] [place] [address] PCP - General Family Medicine 03/28/23 Insights Strategist Relationship Specialty Start Date End Date Godfrey Walsh MD [address] [place] [address] PCP - General Family Medicine 03/28/23 Insights Strategist Relationship Specialty Start Date End Date Godfrey Walsh MD [address] [place], [place] [address] PCP - General Family Medicine 03/28/23 Insights Strategist Relationship Specialty Start Date End Date Godfrey Walsh MD [address] [place], [place] [id number] PCP - General Family Medicine 03/28/23 Galina Andrews APRN.QUANTITATIVE ANALYST MARKETING [address] [place], [place] [id number] [facility] Pretty Anderson APRN.QUANTITATIVE ANALYST MARKETING [address] [place], [place] [id number] [facility]24 Team Status: Active Member Role Status Dates Dr. Rolo Feliciano MD Primary Care Provider Active Team Status: Inactive Member Role Status Dates Dr. Rolo Feliciano MD Primary Care Provider Active Start: March 09, 2024 End: March 09, 2024 Dr. Rolo Feliciano MD Attending Provider Active Start: March 09, 2024 End: March 09, 2024 Dr. Rolo Feliciano MD Referring Provider Active Start: March 09, 2024 End: March 09, 2024 Team Status: Active Member Role Status Dates Dr. Rolo Feliciano MD Primary Care Provider Active Start: March 09, 2024 Marlene Quentin Attending Provider Active Start: ervin 2024 Team Status: Inactive Member Role Status Dates Dr. Rolo Feliciano MD Primary Care Provider Active Start: March 11, 2024 End: March 11, 2024 Dr. Rolo Feliciano MD Attending Provider Active Start: March 11, 2024 End: March 11, 2024 Dr. Rolo Feliciano MD Referring Provider Active Start: March 11, 2024 End: March 11, 2024 Team Status: Inactive Member Role Status Dates Dr. Rolo Feliciano MD Primary Care Provider Active Start: March 30, 2024 End: March 30, 2024 Dr. Rolo Feliciano MD Attending Provider Active Start: March 30, 2024 End: March 30, 2024 Dr. Rolo Feliciano MD Referring Provider Active Start: March 30, 2024 End: March 30, 2024 Team Status: Inactive Member Role Status Dates Dr. Rolo Feliciano MD Primary Care Provider Active Start: April 06, 2024 End: April 06, 2024 Dr. Cortez Alcantar MD Attending Provider Active Start: April 06, 2024 End: April 06, 2024 Dr. Cortez Alcantar MD Referring Provider Active Start: April 06, 2024 End: April 06, 2024 Team Status: Active Member Role Status Dates Dr. Rolo Feliciano MD Primary Care Provider Active Start: April 06, 2024 Dr. Cortez Alcantar MD Attending Provider Active Start: April 06, 2024 Dr. Cortez Alcantar MD Referring Provider Active Start: April 06, 2024 Dr. Cortez Alcantar MD Other Provider Active St art: April 06, 2024 Team Status: Inactive Member Role Status Dates Dr. Rolo Feliciano MD Primary Care Provider Active Start: May 25, 2024 End: May 25, 2024 Dr. Rolo Feliciano MD Referring Provider Active Start: May 25, 2024 End: May 25, 2024 JAKE Hill Attending Provider Active St art: May 25, 2024 End: May 25, 2024 Team Status: Inactive Member Role Status Dates Dr. Rolo Feliciano MD Primary Care Provider Active Start: June 02, 2024 End: June 02, 2024 Dr. Rolo Feliciano MD Referring Provider Active Start: June 02, 2024 End: June 02, 2024 Kathy Nowak CNM Attending Provider Active S tart: June 02, 2024 End: June 02, 2024 Team Status: Inactive Member Role Status Dates Dr. Rolo Feliciano MD Primary Care Provider Active Start: June 02, 2024 End: June 02, 2024 Kathy Nowak CNM Attending Provider Active S tart: June 02, 2024 End: June 02, 2024 Kathy Nowak CNM Referring Provider Active S tart: June 02, 2024 End: June 02, 2024 Team Status: Active Member Role/Relationship Status Dates Dr. Rolo Feliciano MD Primary Care Provider Active Team Status: Inactive Member Role/Relationship Status Dates Dr. Rolo Feliciano MD Primary Care Provider Active Start: May 25, 2024 End: May 25, 2024 Dr. Rolo Feliciano MD Referring Provider Active Start: May 25, 2024 End: May 25, 2024 JAKE Hill Attending Provider Active St art: May 25, 2024 End: May 25, 2024 Team Status: Inactive Member Role/Relationship Status Dates Dr. Rolo Feliciano MD Primary Care Provider Active Start: June 02, 2024 End: June 02, 2024 Dr. Rolo Feliciano MD Referring Provider Active Start: June 02, 2024 End: June 02, 2024 Kathy Nowak CNM Attending Provider Active S tart: June 02, 2024 End: June 02, 2024 Team Status: Inactive Member Role/Relationship Status Dates Dr. Rolo Feliciano MD Primary Care Provider Active Start: June 02, 2024 End: June 02, 2024 Kathy Nowak CNM Attending Provider Active S tart: June 02, 2024 End: June 02, 2024 Kathy Nowak CNM Referring Provider Active S tart: June 02, 2024 End: June 02, 2024 Team Status: Inactive Member Role/Relationship Status Dates Dr. Rolo Feliciano MD Primary Care Provider Active Start: August 31, 2024 End: August 31, 2024 Dr. Rolo Feliciano MD Referring Provider Active Start: August 31, 2024 End: August 31, 2024 Dr. Candice Pepe MD Attending Provider Active Start: August 31, 2024 End: August 31, 2024 Team Status: Active Member Role/Relationship Status Dates Dr. Candice Pepe MD Primary Care Provider Active Team Status: Inactive Member Role/Relationship Status Dates Dr. Rolo Feliciano MD Primary Care Provider Active Start: June 02, 2024 End: June 02, 2024 Dr. Rolo Feliciano MD Referring Provider Active Start: June 02, 2024 End: June 02, 2024 Kathy Nowak CNM Attending Provider Active S tart: June 02, 2024 End: June 02, 2024 Team Status: Inactive Member Role/Relationship Status Dates Dr. Rolo Feliciano MD Primary Care Provider Active Start: June 02, 2024 End: June 02, 2024 Kathy Nowak CNM Attending Provider Active S tart: June 02, 2024 End: June 02, 2024 Kathy Nowak CNM Referring Provider Active S tart: June 02, 2024 End: June 02, 2024 Team Status: Inactive Member Role/Relationship Status Dates Dr. Rolo Feliciano MD Primary Care Provider Active Start: August 31, 2024 End: August 31, 2024 Dr. Rolo Feliciano MD Referring Provider Active Start: August 31, 2024 End: August 31, 2024 Dr. Candice Pepe MD Attending Provider Active Start: August 31, 2024 End: August 31, 2024 Team Status: Inactive Member Role/Relationship Status Dates Dr. Candice Pepe MD Primary Care Provider Active Start: September 21, 2024 End: September 21, 2024 Dr. Candice Pepe MD Attending Provider Active Start: September 21, 2024 End: September 21, 2024 Dr. Candice Pepe MD Referring Provider Active Start: September 21, 2024 End: September 21, 2024 Team Status: Active Member Role/Relationship Status Dates Dr. Candice Pepe MD Primary care physician Active Team Status: Inactive Member Role/Relationship Status Dates Dr. Rolo Feliciano MD Primary care physician Activ e Start: August 31, 2024 End: August 31, 2024 Dr. Rolo Feliciano MD Referring Provider Active Start: August 31, 2024 End: August 31, 2024 Dr. Candice Pepe MD Attending physician Active Start: August 31, 2024 End: August 31, 2024 Team Status: Inactive Member Role/Relationship Status Dates Dr. Candice Pepe MD Primary care physician Active Start: September 21, 2024 End: September 21, 2024 Dr. Candice Pepe MD Attending physician Active Start: September 21, 2024 End: September 21, 2024 Dr. Candice Pepe MD Referring Provider Active Start: September 21, 2024 End: September 21, 2024 Team Status: Inactive Member Role/Relationship Status Dates Dr. Rolo Feliciano MD Referring Provider Active Start: December 07, 2024 End: December 07, 2024 Dr. Candice Pepe MD Primary care physician Active Start: December 07, 2024 End: December 07, 2024 Dr. Candice Pepe MD Attending physician Active Start: December 07, 2024 End: December 07, 2024 INFORMATION SOURCE (unrecogn ized section and content) DATE CREATED AUTHOR 01/16/2023 [facility] DATE CREATED AUTHOR AUTHOR'S ORGANIZ ATION 03/10/2024 [facility] DATE CREATED AUTHOR AUTHOR'S ORGANIZ ATION 12/08/2024 [facility] Goals (unrecognized section and content) Goals may be documented in a n alternate sectionGoals may be documented in an alternate sectionGoals may be documented in an alternate section FOR RECORDS PERTAINING TO PATIENTS WHO ARE OR HAVE BEEN ENROLLED IN A CHEMICAL DEPENDENCY/SUBSTANCEABUSE PROGRAM, SOME INFORMATION MAY BE OMITTED. This clinical summary was aggregated from multiple sources. Caution should be exercised in using it in the provision of clinical care. This summary normalizes information from multiple sources, and as a consequence, information in this document may materially change the coding, format and clinical context of patient data. In addition, data may be omitted in some cases. CLINICAL DECISIONS SHOULD BE BASED ON THE PRIMARY CLINICAL RECORDS. [employer] provides no warranty or guarantee of the accuracy or completeness of information in this document.
[2025-01-29 12:04] LABS: Hematocrit 37.2 % (37-47); Hemoglobin 12.7 g/dL (12.0-15.0); Immature Granulocytes Count 0.020 X10^3/uL (0.0-0.0); Mean Corp Hgb Conc 34.1 g/dL (32-36); Mean Corpuscular Volume 95.6 fL (81-99); Mean Platelet Vol. 8.8 fl (6.2-12.0); NRBC Flagged by Analyzer 0 % (0-5); Platelet Count 249 K/mm3 (150-450); RBC Distribution Width CV 13.0 % (11.6-14.6); RBC Distribution Width SD 45.6 fl (35.1-43.9); Red Blood Count 3.89 M/mm3 (4.2-5.4); White Blood Count 5.8 K/mm3 (4.4-11.0)
[2025-01-29 12:41] LABS: AST(SGOT) 19 U/L (<=31); Alanine Aminotransfer ALT/SGPT 15 U/L (<=34); Albumin, Serum 4.2 g/dL (3.5-5.0); Alkaline Phosphatase 44 U/L (35-104); Anion Gap 13 (5-15); BUN 9 mg/dL (4-19); BUN/Creat Ratio 12.3 RATIO (10-20); Calcium,Total 8.8 mg/dL (7.6-11.0); Carbon Dioxide 19.8 mmol/L (21.0-32.0); Chloride 106 mmol/L (98-108); Cholesterol 200 mg/dL (<=200); Globulin 2.9 g/dL (2.2-4.2); Glucose 62 mg/dL (70-99); Low Density Lipoprotein Calc. 88 mg/dL; Potassium 3.8 mmol/L (3.3-5.1); Triglycerides 130 mg/dL; Very Low Density Lipoprotein 26 mg/dL (5-40); Vitamin B12 425 pg/mL (180-914); Vitamin D,25 Hydroxy 29.0 ng/mL (30-100); cholesterol:hdl ratio screen 2.21
== END | disposition home or self-care (01) ==
LOC: LAB 11:11
PROVIDERS: PCP Internal Medicine; Referring Provider Internal Medicine; Visit Provider Internal Medicine
DX: F90.9 Attention-deficit hyperactivity disorder, unspecified type (principal); R53.83 Other fatigue; E78.2 Mixed hyperlipidemia; E04.9 Nontoxic goiter, unspecified
CPT/HCPCS: 36415; 80053; 80061; 82306; 82607; 84443; 85025